=== PATIENT | female | born 1945 | race Caucasian/White ===

== ENCOUNTER → 2018-03-27 15:00 | Outpatient (CLI) | payer MEDICARE, OTHER, SELFPAY | PROVIDERS: Family Provider Internal Medicine; PCP Internal Medicine | DX: Z23 Encounter for immunization (principal) | CPT/HCPCS: 90471; 90662 ==

== ENCOUNTER → 2018-05-07 17:15 | Outpatient (CLI) | payer MEDICARE, OTHER, SELFPAY | PROVIDERS: Family Provider Internal Medicine; PCP Internal Medicine; Visit Provider Physician Assistant | DX: N39.0 Urinary tract infection, site not specified (principal) | CPT/HCPCS: 87086 ==

== ENCOUNTER → 2018-11-30 12:10 | Outpatient (CLI) | payer MEDICARE, OTHER, SELFPAY ==
--- NOTE | 2018-11-30 | DI.MG.S_ITS ---
BILATERAL DIGITAL SCREENING MAMMOGRAM 3D/2D WITH CAD: 11/30/2018 CLINICAL: Routine screening. Family history of breast cancer. Comparison is made to exams dated: 11/29/2017 mammogram, 11/25/2016 mammogram - [facility], and 11/12/2015 mammogram - [facility]. The tissue of both breasts is heterogeneously dense. This may lower the sensitivity of mammography. Current study was also evaluated with a Computer Aided Detection (CAD) system. No significant masses, calcifications, or other findings are seen in either breast. There has been no significant interval change. IMPRESSION: NEGATIVE There is no mammographic evidence of malignancy. A 1 year screening mammogram is recommended. This exam was interpreted at Station ID: [id number]. NOTE: For mammograms, a report in lay terms will be sent to the patient. Approximately 15% of breast malignancies will not be visualized mammographically. In the management of a palpable breast mass, a negative mammogram must not discourage biopsy of a clinically suspicious lesion. Electronically Signed By: Geovanna severino/varun:11/30/2018 13:45:31 copy to: Shannen Anders letter sent: Normal Exam ACR BI-RADS Category 1: Negative [id number]
== END ==
PROVIDERS: Family Provider Internal Medicine; PCP Internal Medicine; Visit Provider Internal Medicine
DX: Z12.31 Encounter for screening mammogram for malignant neoplasm of breast (principal); Z80.3 Family history of malignant neoplasm of breast
CPT/HCPCS: 77063; 77067

== ENCOUNTER → 2019-04-09 13:48 | Outpatient (CLI) | payer MEDICARE, OTHER, SELFPAY | PROVIDERS: PCP Internal Medicine | DX: Z23 Encounter for immunization (principal) | CPT/HCPCS: 90471; 90662 ==

== ENCOUNTER → 2019-05-26 16:16 | Outpatient (CLI) | payer MEDICARE, OTHER, SELFPAY | PROVIDERS: PCP Internal Medicine; Visit Provider Physician Assistant | DX: R30.0 Dysuria (principal) | CPT/HCPCS: 87086 ==

== ENCOUNTER 2019-09-27 09:45 | Outpatient (RCR) | payer MEDICARE, OTHER, SELFPAY ==
--- NOTE | 2019-09-06 15:46 | PT.OIE ---
Current Diagnoses Stress incontinence (female) (male) (09/06/19) Urge incontinence (09/06/19) Pelvic and perineal pain (09/06/19) Urgency of urination (09/06/19) Visit Care Team Role Provider Type Israel Lucero MD Primary Care Provider Non-Staff Specialty: Medical Address: [address] [place] [address], [id number] Email: Veronica Rebollar MD Attending Provider Non-Staff Referring Provider Specialty: Urology Address: [address] [place] [address], [address] Email: Physical Therapy Initial Evaluation PT-OP-A Visit Information Start: 09/06/19 07:56 Freq: Status: Active Protocol: Document 09/06/19 09:45 EG (Rec: 09/06/19 10:17 EG [id number]) Out-Patient Physical Therapy Visit Information Visit Information Visit Type Initial Evaluation Visit Start Time 09:48 Visit Stop Time 10:30 Total Visit Minutes 42 Visit Number 1 Number of FINANCIAL CONSULTANT Visits 0 Evaluation Information Evaluation Date 09/06/19 PT-OP-B Current Condition Start: 09/06/19 07:56 Freq: Status: Active Protocol: Document 09/06/19 09:45 EG (Rec: 09/06/19 10:16 EG [id number]) Current Condition History of Current Condition Onset Date 6 months prior, February 2020 Current Complaints Frequent urinary leakage History of Current Condition Patient reports that everything bladder related is going on. She says that she can anticipate going to bathroom some of the time but a lot of time she feels the urge and has to run to the bathroom without much notice. She first began getting these symptoms several years ago but in the last 6 months it has gotten progressively worse where she felt she needed to get some treatment. She reports not being able to hold the urge for a very long time . She also reports that she has noticed that water running as well as a cup of tea can trigger an urge. Patient reports that at times when she is feeling overwhelmed, about 3-4x/day, she will go to void and only have a tbsp of urine come out. She reports that it is not painful with urination but afterwards it feels like an exquisite thing that goes up you. She will wake up and go to the bathroom right away which she reports as being normal. She denies having an urge to go void in the middle of the night. She reports that she has had many UTI's in the past with the last one being 4-5 months ago. Traditionally, hardly drink any water but has started to drink more water because she heard this was good but this results in having to go more often as well as having leaks more often. Patient reports that she also leaks with cough or sneeze. Patient has been wearing pads, going through about 2 a day. 43 years ago had vaginal - hysterectomy 15 years ago - took everything out. Patient enjoys sewing while standing and sitting, working in yard, cooking, baking, painting,and gardening. 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 Denies any heaviness but she does have aching on lateral side of bilateral hips . Reports being able to evacuate fine. She reports that she has had an off and on history of constipation - go 2x/week. Prior Treatments and Tests Full Hysterectomy 1 Vaginal 43 years ago 10-12 years ago pelvic floor class Treatment Goals Patient/Caregiver Goals Relieve pain on sides of hips. Wants to learn how to maneuver through episodes and recognize how to handle the leaks. 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 Function- Recreation/Hobbies sew, bake, cook, garden, volunteer Current Functional Impairments (Reported) Functional Limitations- ADL's Have an urge to urinate 3-4x/ day with minimal voidance ( about 1 TBS) Functional Limitations- Recreation/ Urge while volunteering and Hobbies need to peraza to the bathroom Leakage when sewing or cooking at home Personal Factors Other Personal Factors That May Effect Depression Therapy/Recovery Fibromyalgia High blood pressure Decreased hydration Past hysterectomy PT-OP-C Subjective Start: 09/06/19 07:56 Freq: Status: Active Protocol: Document 09/06/19 09:45 EG (Rec: 09/08/19 18:20 EG [email or web address]) Patient Questionnaires Incontinence Questionnaire Incontinence Score Refer to paper chart Pelvic Pain and Urgency/Frequency Patient Symptom Scale Pelvic Pain Score 9 OP-PT Pain Assessment Pain Assessment Grid Paper Pain Assessment Grid Completed Yes: R hip, bilateral ankle, pelvic pain, R scapula PT-OP-I Pelvic Floor Start: 09/06/19 07:56 Freq: Status: Active Protocol: Document 09/06/19 09:45 AMB (Rec: 09/06/19 11:13 AMB [id number]) Pelvic Floor Assessment Urine Pelvic Floor Surgery Yes: total abdominal hysterectomy 10-15 years ago Urinary Symptoms Urge Sensation,Pain Leakage Size Medium Leakage Cause Cough,Sneeze,Urge Other Leakage Causes trigger: running water Leaks Per Day 3-4 Voiding Frequency every few hours to minutes Nocturia 0 Pads Used In 24 Hours 2 Urine Pad Type Maxi Pad Bowel Bowel Surgery No Bowel Symptoms Constipation Bowel Movement Frequency 2x/week Pelvic Clock Pelvic Clock Other no tenderness noted throughout assessment Prolapse Prolapse Comments did not check with bearing down, as pt had difficulty with movement, no cystocele seen at baseline. Perineal Descent Resting Absent Contraction Ability Voluntary Contraction Weak Voluntary Relaxation Weak Manual Muscle Testing Left 1 Manual Muscle Testing Right 1 Manual Muscle Testing Anterior 1 Manual Muscle Testing Posterior 2 Muscle Endurance (Seconds) 5 Number of Quick Contractions In 10 3 Seconds Comments Pelvic Floor Comments increased white discharge, but pt feels like this is from estradiol PT-OP-Q Treatments Start: 09/06/19 07:56 Freq: Status: Active Protocol: Document 09/06/19 09:45 EG (Rec: 09/08/19 18:23 EG [email or web address]) Self-Care/Home Management Treatment Education Patient Education Home Exercise Program Other Education Patient given education on pelvic floor therapy as well as education on how to appropriately handle urinary urge at home. Patient was given an informational sheet to take home. PT-OP-T Assessment and Plan Start: 09/06/19 07:56 Freq: Status: Active Protocol: Document 09/06/19 09:45 EG (Rec: 09/08/19 18:36 EG [email or web address]) Physical Therapy Assessment Rehab Potential Rehabilitation Potential Good Evaluation Complexity Number of Personal Factors/Comorbidities 3 or More Number of Body Systems Impaired 3 Clinical Presentation at Evaluation Stable Impairments Impairments Activity Tolerance, Coordination,Functional Activities,Functional Mobility ,Pain,Posture,Strength Goals Four Impairment Voidance Urge Short Term Goal (STG) Patient will be able to control urinary urge 50% of the time in 2 weeks. STG Duration 2 weeks [facility] Goal (LTG) Patient will be able to control urinary urge 100% of the time in 6 weeks. LTG Duration 6 weeks Three Impairment Urinary Leakage Short Term Goal (STG) Patient will have no more than 3 urinary leaks/week in 3 weeks. STG Duration 3 weeks [facility] Goal (LTG) Patient will not have any urinary leaks in 6 weeks. LTG Duration 6 weeks Two Impairment Coordination Short Term Goal (STG) Patient will be able to isolate and contract pelvic floor mm without use of buttocks or abdominal 65% of time when performing kegel exercises in 3 weeks. STG Duration 3 weeks Hydroelectric Plant Technician Goal (LTG) Patient willbe able to isolate and contract pelvic floor mm without use of buttocks or abdominals 100% of the time in 6 weeks. LTG Duration 6 weeks One Impairment Strength Short Term Goal (STG) Patient will increase Pelvic Floor mm. strength to 3+/5 in 4 weeks. STG Duration 4 weeks Hydroelectric Plant Technician Goal (LTG) Patient will increase pelvic floor mm strength to 4/5 in 6 weeks. LTG Duration 6 weeks Assessment Summary Assessment Patient is a pleasant 74 year old female who reports to physical therapy with cheif complaint of urinary incontinence due to weak pelvic floor musculature as well as decreased pelvic floor musculature coordination. Patient also experiences urge incontinence with triggers. Patient will benefit from skilled therapy to address weakness, incoordination, as well as uncontrolled urge. Patient will benefit from pelvic floor strength training , education on urge incontinence, diaphragmatic breathing, neuromuscular reeducation, as well as LE strengthening and coordination in order to allow patient to return to prior activities without urinary interruption. Physical Therapy Plan Frequency and Duration Frequency of Treatment 1x/Week Duration of Treatment 6 weeks Plan of Care Start Date 09/06/19 Plan of Care End Date 10/18/19 Therapeutic Interventions Therapeutic Interventions Coordination Training,Gait Training,Home Exercise Program ,Manual Therapy,Neuromuscular Re-education,Patient/Caregiver Education,Self-Care/Home Management,Soft Tissue Mobilization,Therapeutic Activities,Therapeutic Exercises Modalities Biofeedback,Electric Stimulation Next Visit Focus/Plan Next Note Type Treatment Note Next Visit Plan Assess how urge incontinence and control is. Begin biofeedback. IHarriet DPT, supervised all treatment performed by, and agreed with the plan of care, as performed by Nory Gilbert, CLAYTON.
--- NOTE | 2019-09-06 15:47 | PT.OPPOC ---
Physical, Occupational & Speech Therapy At [facility] Current Diagnoses Stress incontinence (female) (male) (09/06/19) Urge incontinence (09/06/19) Pelvic and perineal pain (09/06/19) Urgency of urination (09/06/19) Visit Care Team Role Provider Type Israel Lucero MD Primary Care Provider Non-Staff Specialty: Medical Address: [address] [place] [address], [address] Email: Veronica Rebollar MD Attending Provider Non-Staff Referring Provider Specialty: Urology Address: [address] [place] [address], [address] Email: Plan Of Care PT-OP-T Assessment and Plan Start: 09/06/19 07:56 Freq: Status: Active Protocol: Document 09/06/19 09:45 EG (Rec: 09/08/19 18:36 EG [email or web address]) Physical Therapy Assessment Rehab Potential Rehabilitation Potential Good Evaluation Complexity Number of Personal Factors/Comorbidities 3 or More Number of Body Systems Impaired 3 Clinical Presentation at Evaluation Stable Impairments Impairments Activity Tolerance, Coordination,Functional Activities,Functional Mobility ,Pain,Posture,Strength Goals Four Impairment Voidance Urge Short Term Goal (STG) Patient will be able to control urinary urge 50% of the time in 2 weeks. STG Duration 2 weeks Freight Adjuster Goal (LTG) Patient will be able to control urinary urge 100% of the time in 6 weeks. LTG Duration 6 weeks Three Impairment Urinary Leakage Short Term Goal (STG) Patient will have no more than 3 urinary leaks/week in 3 weeks. STG Duration 3 weeks Half-Way Goal (LTG) Patient will not have any urinary leaks in 6 weeks. LTG Duration 6 weeks Two Impairment Coordination Short Term Goal (STG) Patient will be able to isolate and contract pelvic floor mm without use of buttocks or abdominal 65% of time when performing kegel exercises in 3 weeks. STG Duration 3 weeks Freight Adjuster Goal (LTG) Patient willbe able to isolate and contract pelvic floor mm without use of buttocks or abdominals 100% of the time in 6 weeks. LTG Duration 6 weeks One Impairment Strength Short Term Goal (STG) Patient will increase Pelvic Floor mm. strength to 3+/5 in 4 weeks. STG Duration 4 weeks Half-Way Goal (LTG) Patient will increase pelvic floor mm strength to 4/5 in 6 weeks. LTG Duration 6 weeks Assessment Summary Assessment Patient is a pleasant 74 year old female who reports to physical therapy with cheif complaint of urinary incontinence due to weak pelvic floor musculature as well as decreased pelvic floor musculature coordination. Patient also experiences urge incontinence with triggers. Patient will benefit from skilled therapy to address weakness, incoordination, as well as uncontrolled urge. Patient will benefit from pelvic floor strength training , education on urge incontinence, diaphragmatic breathing, neuromuscular reeducation, as well as LE strengthening and coordination in order to allow patient to return to prior activities without urinary interruption. Physical Therapy Plan Frequency and Duration Frequency of Treatment 1x/Week Duration of Treatment 6 weeks Plan of Care Start Date 09/06/19 Plan of Care End Date 10/18/19 Therapeutic Interventions Therapeutic Interventions Coordination Training,Gait Training,Home Exercise Program ,Manual Therapy,Neuromuscular Re-education,Patient/Caregiver Education,Self-Care/Home Management,Soft Tissue Mobilization,Therapeutic Activities,Therapeutic Exercises Modalities Biofeedback,Electric Stimulation Next Visit Focus/Plan Next Note Type Treatment Note Next Visit Plan Assess how urge incontinence and control is. Begin biofeedback. Plan of Care Dates Plan of Care Start Date 09/06/19 Plan of Care End Date 10/18/19 Harriet Armas DPT, supervised all treatment performed by, and agreed with the plan of care, as performed by Nory Gilbert, CLAYTON. Electronically Signed by: Harriet Murphy, PT 09/10/19 [id number] Please Sign and Return: I have reviewed this Plan of Care and certify that the skilled therapy services above are required to meet the patient?s needs. Physician Signature Date Printed Name and Credentials Clinical Instructor Signature Printed Name and Credentials
--- NOTE | 2019-09-13 16:06 | PT.OTN ---
Current Diagnoses Stress incontinence (female) (male) (09/13/19) Urge incontinence (09/13/19) Pelvic and perineal pain (09/13/19) Urgency of urination (09/13/19) Physical Therapy Treatment Note PT-OP-A Visit Information Start: 09/06/19 07:56 Freq: Status: Active Protocol: Document 09/13/19 09:50 EG (Rec: 09/13/19 11:18 EG [id number]) Out-Patient Physical Therapy Visit Information Visit Information Visit Type Treatment Note Visit Start Time 09:50 Visit Stop Time 10:30 Total Visit Minutes 40 Visit Number 2 Number of DIGITAL PHOTO PRINTER Visits 0 PT-OP-B Current Condition Start: 09/06/19 07:56 Freq: Status: Active Protocol: Document 09/06/19 09:45 EG (Rec: 09/06/19 10:16 EG [id number]) Current Condition History of Current Condition Onset Date 6 months prior, February 2020 Current Complaints Frequent urinary leakage History of Current Condition Patient reports that everything bladder related is going on. She says that she can anticipate going to bathroom some of the time but a lot of time she feels the urge and has to run to the bathroom without much notice. She first began getting these symptoms several years ago but in the last 6 months it has gotten progressively worse where she felt she needed to get some treatment. She reports not being able to hold the urge for a very long time . She also reports that she has noticed that water running as well as a cup of tea can trigger an urge. Patient reports that at times when she is feeling overwhelmed, about 3-4x/day, she will go to void and only have a tbsp of urine come out. She reports that it is not painful with urination but afterwards it feels like an exquisite thing that goes up you. She will wake up and go to the bathroom right away which she reports as being normal. She denies having an urge to go void in the middle of the night. She reports that she has had many UTI's in the past with the last one being 4-5 months ago. Traditionally, hardly drink any water but has started to drink more water because she heard this was good but this results in having to go more often as well as having leaks more often. Patient reports that she also leaks with cough or sneeze. Patient has been wearing pads, going through about 2 a day. 43 years ago had vaginal - hysterectomy 15 years ago - took everything out. Patient enjoys sewing while standing and sitting, working in yard, cooking, baking, painting,and gardening. 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 Denies any heaviness but she does have aching on lateral side of bilateral hips . Reports being able to evacuate fine. She reports that she has had an off and on history of constipation - go 2x/week. Prior Treatments and Tests Full Hysterectomy 1 Vaginal 43 years ago 10-12 years ago pelvic floor class Treatment Goals Patient/Caregiver Goals Relieve pain on sides of hips. Wants to learn how to maneuver through episodes and recognize how to handle the leaks. 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 Function- Recreation/Hobbies sew, bake, cook, garden, volunteer Current Functional Impairments (Reported) Functional Limitations- ADL's Have an urge to urinate 3-4x/ day with minimal voidance ( about 1 TBS) Functional Limitations- Recreation/ Urge while volunteering and Hobbies need to peraza to the bathroom Leakage when sewing or cooking at home Personal Factors Other Personal Factors That May Effect Depression Therapy/Recovery Fibromyalgia High blood pressure Decreased hydration Past hysterectomy PT-OP-C Subjective Start: 09/06/19 07:56 Freq: Status: Active Protocol: Document 09/13/19 09:50 EG (Rec: 09/13/19 11:18 EG [id number]) OP-PT Subjective Patient Comments Patient Comments Patient reports that things are about the same. She feels that when she is doing the quick flicks, she will let everything go. She did have some leaks this past week and had to run to the bathroom a few times in order to make it there. She still feels as if she doesn't have to void much urine when she does go to the bathroom frequently and at times feels as if she has an urge all day long. She does report having less of an urge at night time because she is lying down and she doesn't feel the urge to urinate as much when lying down. Patient Reported Progress Same PT-OP-I Pelvic Floor Start: 09/06/19 07:56 Freq: Status: Active Protocol: Document 09/06/19 09:45 AMB (Rec: 09/06/19 11:13 AMB [id number]) Pelvic Floor Assessment Urine Pelvic Floor Surgery Yes: total abdominal hysterectomy 10-15 years ago Urinary Symptoms Urge Sensation,Pain Leakage Size Medium Leakage Cause Cough,Sneeze,Urge Other Leakage Causes trigger: running water Leaks Per Day 3-4 Voiding Frequency every few hours to minutes Nocturia 0 Pads Used In 24 Hours 2 Urine Pad Type Maxi Pad Bowel Bowel Surgery No Bowel Symptoms Constipation Bowel Movement Frequency 2x/week Pelvic Clock Pelvic Clock Other no tenderness noted throughout assessment Prolapse Prolapse Comments did not check with bearing down, as pt had difficulty with movement, no cystocele seen at baseline. Perineal Descent Resting Absent Contraction Ability Voluntary Contraction Weak Voluntary Relaxation Weak Manual Muscle Testing Left 1 Manual Muscle Testing Right 1 Manual Muscle Testing Anterior 1 Manual Muscle Testing Posterior 2 Muscle Endurance (Seconds) 5 Number of Quick Contractions In 10 3 Seconds Comments Pelvic Floor Comments increased white discharge, but pt feels like this is from estradiol PT-OP-Q Treatments Start: 09/06/19 07:56 Freq: Status: Active Protocol: Document 09/13/19 09:50 EG (Rec: 09/13/19 15:35 EG [email or web address]) Neuro Re-Education Treatment Other Activities Biofeedback Details Biofeedback Reps/Duration 23 min Comments Baseline: 1.8 5 sec hold, 10 sec relax: max 8.3 10 sec hold, 10 sec relax: max 5.1 Quickflicks: max 4.4 Self-Care/Home Management Treatment Education Patient Education Home Exercise Program Other Education Urgency control education Fluid intake education Talked about going on urination schedule possibly every hour to help normalize voidance and decrease all day urgency PT-OP-T Assessment and Plan Start: 09/06/19 07:56 Freq: Status: Active Protocol: Document 09/13/19 09:50 EG (Rec: 09/13/19 15:35 EG [email or web address]) Physical Therapy Assessment Assessment Summary Assessment Patient tolerated treatment fair today. She was able to contract pelvic floor but did still use abdomen and gluteal muscles with contraction. With concentration, she is able to isolate pelvic floor but maximal contraction is fairly weak. She will continue to benefit from urge reduction techniques to help with daily urges and frequency of urination. Patient should work on supine isolation of pelvic floor contraction and progress as tolerated to continue with strengtheng and control of pelvic floor. Physical Therapy Plan Frequency and Duration Frequency of Treatment 1x/Week Duration of Treatment 6 weeks Plan of Care Start Date 09/06/19 Plan of Care End Date 10/18/19 Next Visit Focus/Plan Next Note Type Treatment Note Next Visit Plan Assess how pelvic floor contraction supine is going. Continue with strengthening. Ask about urination schedule. IHarriet, DPT, supervised all treatment performed by, and agreed with the plan of care, as performed by Nory Gilbert, SPT.
--- NOTE | 2019-09-17 15:00 | PT.OTN ---
Current Diagnoses Stress incontinence (female) (male) (09/17/19) Urge incontinence (09/17/19) Pelvic and perineal pain (09/17/19) Urgency of urination (09/17/19) Physical Therapy Treatment Note PT-OP-A Visit Information Start: 09/06/19 07:56 Freq: Status: Active Protocol: Document 09/17/19 08:17 EG (Rec: 09/17/19 11:18 EG [id number]) Out-Patient Physical Therapy Visit Information Visit Information Visit Type Treatment Note Visit Start Time 08:17 Visit Stop Time 09:00 Total Visit Minutes 43 Visit Number 3 Number of PORTRAIT ARTIST Visits 0 PT-OP-B Current Condition Start: 09/06/19 07:56 Freq: Status: Active Protocol: Document 09/06/19 09:45 EG (Rec: 09/06/19 10:16 EG [id number]) Current Condition History of Current Condition Onset Date 6 months prior, February 2020 Current Complaints Frequent urinary leakage History of Current Condition Patient reports that everything bladder related is going on. She says that she can anticipate going to bathroom some of the time but a lot of time she feels the urge and has to run to the bathroom without much notice. She first began getting these symptoms several years ago but in the last 6 months it has gotten progressively worse where she felt she needed to get some treatment. She reports not being able to hold the urge for a very long time . She also reports that she has noticed that water running as well as a cup of tea can trigger an urge. Patient reports that at times when she is feeling overwhelmed, about 3-4x/day, she will go to void and only have a tbsp of urine come out. She reports that it is not painful with urination but afterwards it feels like an exquisite thing that goes up you. She will wake up and go to the bathroom right away which she reports as being normal. She denies having an urge to go void in the middle of the night. She reports that she has had many UTI's in the past with the last one being 4-5 months ago. Traditionally, hardly drink any water but has started to drink more water because she heard this was good but this results in having to go more often as well as having leaks more often. Patient reports that she also leaks with cough or sneeze. Patient has been wearing pads, going through about 2 a day. 43 years ago had vaginal - hysterectomy 15 years ago - took everything out. Patient enjoys sewing while standing and sitting, working in yard, cooking, baking, painting,and gardening. 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 Denies any heaviness but she does have aching on lateral side of bilateral hips . Reports being able to evacuate fine. She reports that she has had an off and on history of constipation - go 2x/week. Prior Treatments and Tests Full Hysterectomy 1 Vaginal 43 years ago 10-12 years ago pelvic floor class Treatment Goals Patient/Caregiver Goals Relieve pain on sides of hips. Wants to learn how to maneuver through episodes and recognize how to handle the leaks. 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 Function- Recreation/Hobbies sew, bake, cook, garden, volunteer Current Functional Impairments (Reported) Functional Limitations- ADL's Have an urge to urinate 3-4x/ day with minimal voidance ( about 1 TBS) Functional Limitations- Recreation/ Urge while volunteering and Hobbies need to peraza to the bathroom Leakage when sewing or cooking at home Personal Factors Other Personal Factors That May Effect Depression Therapy/Recovery Fibromyalgia High blood pressure Decreased hydration Past hysterectomy PT-OP-C Subjective Start: 09/06/19 07:56 Freq: Status: Active Protocol: Document 09/17/19 08:17 EG (Rec: 09/17/19 11:18 EG [id number]) OP-PT Subjective Patient Comments Patient Comments Patient reports that some days are not so bad, some days are not so good. She has been trying to drink the full day but it is hard to remember sometimes. She also reports that it is difficult to do kegels when having an urge and she feels that she can't control the urge enough to breathe and do her exercises. Overall the week has been variable, but she did report quite a few leaks yesterday. Patient Reported Progress Same PT-OP-I Pelvic Floor Start: 09/06/19 07:56 Freq: Status: Active Protocol: Document 09/06/19 09:45 AMB (Rec: 09/06/19 11:13 AMB [id number]) Pelvic Floor Assessment Urine Pelvic Floor Surgery Yes: total abdominal hysterectomy 10-15 years ago Urinary Symptoms Urge Sensation,Pain Leakage Size Medium Leakage Cause Cough,Sneeze,Urge Other Leakage Causes trigger: running water Leaks Per Day 3-4 Voiding Frequency every few hours to minutes Nocturia 0 Pads Used In 24 Hours 2 Urine Pad Type Maxi Pad Bowel Bowel Surgery No Bowel Symptoms Constipation Bowel Movement Frequency 2x/week Pelvic Clock Pelvic Clock Other no tenderness noted throughout assessment Prolapse Prolapse Comments did not check with bearing down, as pt had difficulty with movement, no cystocele seen at baseline. Perineal Descent Resting Absent Contraction Ability Voluntary Contraction Weak Voluntary Relaxation Weak Manual Muscle Testing Left 1 Manual Muscle Testing Right 1 Manual Muscle Testing Anterior 1 Manual Muscle Testing Posterior 2 Muscle Endurance (Seconds) 5 Number of Quick Contractions In 10 3 Seconds Comments Pelvic Floor Comments increased white discharge, but pt feels like this is from estradiol PT-OP-Q Treatments Start: 09/06/19 07:56 Freq: Status: Active Protocol: Document 09/17/19 08:17 EG (Rec: 09/17/19 11:18 EG [id number]) Therapeutic Exercises Supine Exercises Quick Flicks while Supine Supine Exercise Name Quick Flicks while supine Reps/Minutes 2x10 Comments cue to decrease muscle compensation with TA and glutes PF contraction with alternate breaths Supine Exercise Name PF contraction while breathing Reps/Minutes 10x Comments hold PF contraction while breathing. Breathing with PF contraction Supine Exercise Name Coordinated breathing with PF contraction Reps/Minutes 10x Comments Patient in hooklying, contract PF with exhalation - tactile cue on glutes Neuro Re-Education Treatment Other Activities NMES Details NMES Reps/Duration Intensity of 10 Comments 5 sec hold, 10 second relax Biofeedback Details Biofeedback Reps/Duration 15 Comments 6.3 avg, 12.1 - 5 sec hold 6.5 avg, 13.1 max - quick flicks PT-OP-T Assessment and Plan Start: 09/06/19 07:56 Freq: Status: Active Protocol: Document 09/17/19 08:17 EG (Rec: 09/17/19 11:33 EG [id number]) Physical Therapy Assessment Assessment Summary Assessment Patient still struggles with isolating pelvic floor musculature but does better when giving self tactile cue on gluteal muscles to prevent co-contraction when doing pelvic floor contraction. Patient did well with breath work and PF contraction today. Will continue to benefit from increasing NM connection to PF in order to use these muscles when feeling increased urge throughout the day. Physical Therapy Plan Frequency and Duration Frequency of Treatment 1x/Week Duration of Treatment 6 weeks Plan of Care Start Date 09/06/19 Plan of Care End Date 10/18/19 Next Visit Focus/Plan Next Note Type Treatment Note Next Visit Plan Assess HEP. Ask about fluid intake. Continue to work on PF strengthening and urge reduction training. Advance strengthening as tolerated. IHarriet, KIRA, supervised all treatment performed by, and agreed with the plan of care, as performed by Nory Gilbert, CLAYTON.
--- NOTE | 2019-09-27 15:53 | PT.OTN ---
Current Diagnoses Stress incontinence (female) (male) (09/27/19) Urge incontinence (09/27/19) Pelvic and perineal pain (09/27/19) Physical Therapy Treatment Note PT-OP-A Visit Information Start: 09/06/19 07:56 Freq: Status: Active Protocol: Document 09/27/19 09:45 EG (Rec: 09/27/19 14:24 EG [id number]) Out-Patient Physical Therapy Visit Information Visit Information Visit Type Treatment Note Visit Start Time 09:45 Visit Stop Time 10:30 Total Visit Minutes 45 Visit Number 4 Number of STATE PILOT Visits 0 PT-OP-B Current Condition Start: 09/06/19 07:56 Freq: Status: Active Protocol: Document 09/06/19 09:45 EG (Rec: 09/06/19 10:16 EG [id number]) Current Condition History of Current Condition Onset Date 6 months prior, February 2020 Current Complaints Frequent urinary leakage History of Current Condition Patient reports that everything bladder related is going on. She says that she can anticipate going to bathroom some of the time but a lot of time she feels the urge and has to run to the bathroom without much notice. She first began getting these symptoms several years ago but in the last 6 months it has gotten progressively worse where she felt she needed to get some treatment. She reports not being able to hold the urge for a very long time . She also reports that she has noticed that water running as well as a cup of tea can trigger an urge. Patient reports that at times when she is feeling overwhelmed, about 3-4x/day, she will go to void and only have a tbsp of urine come out. She reports that it is not painful with urination but afterwards it feels like an exquisite thing that goes up you. She will wake up and go to the bathroom right away which she reports as being normal. She denies having an urge to go void in the middle of the night. She reports that she has had many UTI's in the past with the last one being 4-5 months ago. Traditionally, hardly drink any water but has started to drink more water because she heard this was good but this results in having to go more often as well as having leaks more often. Patient reports that she also leaks with cough or sneeze. Patient has been wearing pads, going through about 2 a day. 43 years ago had vaginal - hysterectomy 15 years ago - took everything out. Patient enjoys sewing while standing and sitting, working in yard, cooking, baking, painting,and gardening. 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 Denies any heaviness but she does have aching on lateral side of bilateral hips . Reports being able to evacuate fine. She reports that she has had an off and on history of constipation - go 2x/week. Prior Treatments and Tests Full Hysterectomy 1 Vaginal 43 years ago 10-12 years ago pelvic floor class Treatment Goals Patient/Caregiver Goals Relieve pain on sides of hips. Wants to learn how to maneuver through episodes and recognize how to handle the leaks. Prior Functional Status Baseline Function- ADL's Independent Baseline Function- Mobility Independent Baseline Function- Work/School Retired from the [employer] system Baseline Function- Recreation/Hobbies sew, bake, cook, garden, volunteer Current Functional Impairments (Reported) Functional Limitations- ADL's Have an urge to urinate 3-4x/ day with minimal voidance ( about 1 TBS) Functional Limitations- Recreation/ Urge while volunteering and Hobbies need to peraza to the bathroom Leakage when sewing or cooking at home Personal Factors Other Personal Factors That May Effect Depression Therapy/Recovery Fibromyalgia High blood pressure Decreased hydration Past hysterectomy PT-OP-C Subjective Start: 09/06/19 07:56 Freq: Status: Active Protocol: Document 09/27/19 09:45 EG (Rec: 09/27/19 10:33 EG [id number]) OP-PT Subjective Patient Comments Patient Comments Patient reports that she is still getting the urge and it is still difficult to get a handle on when she actually has to go and when she doesn't . She is still having that sensation when she goes to the bathroom but doesn't have a large volume to void. The urge is so overpowering, and doing the quick flicks is not timely. Trying not to drink that much water. Hard to not go to the bathroom when out so she always uses the bathroom just in case. Patient Reported Progress Same PT-OP-I Pelvic Floor Start: 09/06/19 07:56 Freq: Status: Active Protocol: Document 09/06/19 09:45 AMB (Rec: 09/06/19 11:13 AMB [id number]) Pelvic Floor Assessment Urine Pelvic Floor Surgery Yes: total abdominal hysterectomy 10-15 years ago Urinary Symptoms Urge Sensation,Pain Leakage Size Medium Leakage Cause Cough,Sneeze,Urge Other Leakage Causes trigger: running water Leaks Per Day 3-4 Voiding Frequency every few hours to minutes Nocturia 0 Pads Used In 24 Hours 2 Urine Pad Type Maxi Pad Bowel Bowel Surgery No Bowel Symptoms Constipation Bowel Movement Frequency 2x/week Pelvic Clock Pelvic Clock Other no tenderness noted throughout assessment Prolapse Prolapse Comments did not check with bearing down, as pt had difficulty with movement, no cystocele seen at baseline. Perineal Descent Resting Absent Contraction Ability Voluntary Contraction Weak Voluntary Relaxation Weak Manual Muscle Testing Left 1 Manual Muscle Testing Right 1 Manual Muscle Testing Anterior 1 Manual Muscle Testing Posterior 2 Muscle Endurance (Seconds) 5 Number of Quick Contractions In 10 3 Seconds Comments Pelvic Floor Comments increased white discharge, but pt feels like this is from estradiol PT-OP-Q Treatments Start: 09/06/19 07:56 Freq: Status: Active Protocol: Document 09/27/19 09:45 EG (Rec: 09/27/19 10:33 EG [id number]) Neuro Re-Education Treatment Other Activities Biofeedback Details Biofeedback Reps/Duration 20 Comments baseline:2.0-2.5 5 sec hold: 12.6 max, 6.9 avg quick flicks: max:14.3 10 sec hold: 13.1 max Self-Care/Home Management Treatment Education Patient Education Home Exercise Program Other Education Fluids, Schedule for fluid voiding, Quick Flicks, Urgency Management PT-OP-T Assessment and Plan Start: 09/06/19 07:56 Freq: Status: Active Protocol: Document 09/27/19 09:45 EG (Rec: 09/27/19 14:29 EG [id number]) Physical Therapy Assessment Assessment Summary Assessment Patient tolerated treatment well today. She was able to perform PF contractions without an increase in abdominal or gluteal engagement and felt like she understands what that contraction is supposed to feel like. She was told to go on a voiding schedule as well as fluid intake schedule at least 3x/week to help regulate the system and help reduce the urge to go to the bathroom without needing to void. Physical Therapy Plan Frequency and Duration Frequency of Treatment 1x/Week Duration of Treatment 6 weeks Plan of Care Start Date 09/06/19 Plan of Care End Date 10/18/19 Next Visit Focus/Plan Next Note Type Treatment Note Next Visit Plan Assess HEP. Ask about fluid intake and bladder schedule performance. Continue to work on PF strengthening and urge reduction training. Advance strengthening as tolerated. Harriet Armas, DPT, supervised all treatment performed by, and agreed with the plan of care, as performed by Nory Gilbert, CLAYTON.
--- NOTE | 2019-12-24 16:25 | PT.OPDS ---
Current Diagnoses Stress incontinence (female) (male) (09/27/19) Urge incontinence (09/27/19) Pelvic and perineal pain (09/27/19) Visit Care Team Role Provider Type Israel Lucero MD Primary Care Provider Non-Staff Specialty: Medical Address: [address] [place] [address], [id number] Email: Veronica Rebollar MD Attending Provider Non-Staff Referring Provider Specialty: Urology Address: [address] [place] [address], [id number] Email: Visit Number Visit Number 4 Discharge Summary PT-OP-B Current Condition Start: 09/06/19 07:56 Freq: Status: Active Protocol: Document 09/06/19 09:45 EG (Rec: 09/06/19 10:16 EG [id number]) Current Condition History of Current Condition Onset Date 6 months prior, February 2020 Current Complaints Frequent urinary leakage History of Current Condition Patient reports that everything bladder related is going on. She says that she can anticipate going to bathroom some of the time but a lot of time she feels the urge and has to run to the bathroom without much notice. She first began getting these symptoms several years ago but in the last 6 months it has gotten progressively worse where she felt she needed to get some treatment. She reports not being able to hold the urge for a very long time . She also reports that she has noticed that water running as well as a cup of tea can trigger an urge. Patient reports that at times when she is feeling overwhelmed, about 3-4x/day, she will go to void and only have a tbsp of urine come out. She reports that it is not painful with urination but afterwards it feels like an exquisite thing that goes up you. She will wake up and go to the bathroom right away which she reports as being normal. She denies having an urge to go void in the middle of the night. She reports that she has had many UTI's in the past with the last one being 4-5 months ago. Traditionally, hardly drink any water but has started to drink more water because she heard this was good but this results in having to go more often as well as having leaks more often. Patient reports that she also leaks with cough or sneeze. Patient has been wearing pads, going through about 2 a day. 43 years ago had vaginal - hysterectomy 15 years ago - took everything out. Patient enjoys sewing while standing and sitting, working in yard, cooking, baking, painting,and gardening. 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 Denies any heaviness but she does have aching on lateral side of bilateral hips . Reports being able to evacuate fine. She reports that she has had an off and on history of constipation - go 2x/week. Prior Treatments and Tests Full Hysterectomy 1 Vaginal 43 years ago 10-12 years ago pelvic floor class Treatment Goals Patient/Caregiver Goals Relieve pain on sides of hips. Wants to learn how to maneuver through episodes and recognize how to handle the leaks. 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 Function- Recreation/Hobbies sew, bake, cook, garden, volunteer Current Functional Impairments (Reported) Functional Limitations- ADL's Have an urge to urinate 3-4x/ day with minimal voidance ( about 1 TBS) Functional Limitations- Recreation/ Urge while volunteering and Hobbies need to peraza to the bathroom Leakage when sewing or cooking at home Personal Factors Other Personal Factors That May Effect Depression Therapy/Recovery Fibromyalgia High blood pressure Decreased hydration Past hysterectomy PT-OP-C Subjective Start: 09/06/19 07:56 Freq: Status: Active Protocol: Document 09/27/19 09:45 EG (Rec: 09/27/19 10:33 EG [id number]) OP-PT Subjective Patient Comments Patient Comments Patient reports that she is still getting the urge and it is still difficult to get a handle on when she actually has to go and when she doesn't . She is still having that sensation when she goes to the bathroom but doesn't have a large volume to void. The urge is so overpowering, and doing the quick flicks is not timely. Trying not to drink that much water. Hard to not go to the bathroom when out so she always uses the bathroom just in case. Patient Reported Progress Same PT-OP-I Pelvic Floor Start: 09/06/19 07:56 Freq: Status: Active Protocol: Document 09/06/19 09:45 AMB (Rec: 09/06/19 11:13 AMB [id number]) Pelvic Floor Assessment Urine Pelvic Floor Surgery Yes: total abdominal hysterectomy 10-15 years ago Urinary Symptoms Urge Sensation,Pain Leakage Size Medium Leakage Cause Cough,Sneeze,Urge Other Leakage Causes trigger: running water Leaks Per Day 3-4 Voiding Frequency every few hours to minutes Nocturia 0 Pads Used In 24 Hours 2 Urine Pad Type Maxi Pad Bowel Bowel Surgery No Bowel Symptoms Constipation Bowel Movement Frequency 2x/week Pelvic Clock Pelvic Clock Other no tenderness noted throughout assessment Prolapse Prolapse Comments did not check with bearing down, as pt had difficulty with movement, no cystocele seen at baseline. Perineal Descent Resting Absent Contraction Ability Voluntary Contraction Weak Voluntary Relaxation Weak Manual Muscle Testing Left 1 Manual Muscle Testing Right 1 Manual Muscle Testing Anterior 1 Manual Muscle Testing Posterior 2 Muscle Endurance (Seconds) 5 Number of Quick Contractions In 10 3 Seconds Comments Pelvic Floor Comments increased white discharge, but pt feels like this is from estradiol PT-OP-T Assessment and Plan Start: 09/06/19 07:56 Freq: Status: Active Protocol: Document 12/24/19 16:24 MB (Rec: 12/24/19 16:24 MB [id number]) Physical Therapy Plan Discharge Physical Therapy Discharge Comments Pt has not been attending PT. Will d/c PT.
== END 2019-12-25 08:08 ==
LOC: PHYS 09:45
PROVIDERS: PCP Internal Medicine; Referring Provider Urology; Visit Provider Urology
DX: R10.2 Pelvic and perineal pain (principal); N39.41 Urge incontinence; N39.3 Stress incontinence (female) (male)
CPT/HCPCS: 97110; 97112; 97161; 97535

== ENCOUNTER → 2020-01-02 14:02 | Outpatient (CLI) | payer MEDICARE, OTHER, SELFPAY ==
--- NOTE | 2020-01-02 | DI.MG.S_ITS ---
BILATERAL DIGITAL SCREENING MAMMOGRAM 3D/2D WITH CAD: 01/02/2020 CLINICAL: Routine screening. Family history of breast cancer. Comparison is made to exams dated: 11/30/2018 mammogram, 11/29/2017 mammogram, and 11/25/2016 mammogram - [facility]. The tissue of both breasts is heterogeneously dense. This may lower the sensitivity of mammography. Current study was also evaluated with a Computer Aided Detection (CAD) system. No significant masses, calcifications, or other findings are seen in either breast. There has been no significant interval change. IMPRESSION: NEGATIVE There is no mammographic evidence of malignancy. A 1 year screening mammogram is recommended. This exam was interpreted at Station ID: [id number]. NOTE: For mammograms, a report in lay terms will be sent to the patient. Approximately 15% of breast malignancies will not be visualized mammographically. In the management of a palpable breast mass, a negative mammogram must not discourage biopsy of a clinically suspicious lesion. Electronically Signed By: Dami ojeda/varun:01/02/2020 16:44:52 copy to: Shannen Anders letter sent: Normal Exam ACR BI-RADS Category 1: Negative [id number]
== END ==
PROVIDERS: PCP Internal Medicine; Referring Provider Internal Medicine; Visit Provider Internal Medicine
DX: Z12.31 Encounter for screening mammogram for malignant neoplasm of breast (principal); Z80.3 Family history of malignant neoplasm of breast
CPT/HCPCS: 77063; 77067

== ENCOUNTER → 2020-01-31 17:30 | Outpatient (CLI) | payer MEDICARE, OTHER, SELFPAY ==
--- NOTE | 2020-01-31 | DI.MRI.S_ITS ---
PROCEDURE: MR LUMBAR SPINE WO CON INDICATIONS: Low back and bilateral hip pain. Right leg pain TECHNIQUE: Noncontrast sagittal T1 spin echo and T2 fast echo, sagittal STIR, axial T1 and T2 fast spin echo through the lumbar spine. In cases with scoliosis, additional coronal T2 fast spin echo may be performed. COMPARISON: None. FINDINGS: Image quality: Excellent. Alignment and Curvature: There is mild L4-L5 anterolisthesis secondary to facet hypertrophy. There is approximately 14? of convex left lumbar spine scoliosis. Bone Marrow: Marrow is of normal overall signal. No acute vertebral body compression fractures. Spinal Cord: Conus medullaris terminates at the L1 level. Visualized cord demonstrates normal signal and size. Paraspinous Soft Tissues: No paravertebral masses. L1-L2: Loss of disc signal. Minimal, diffuse disc bulge. No central stenosis. No neural foraminal narrowing. No neural compression. L2-L3: Loss of disc signal. Mild, diffuse disc bulge. Mild bilateral facet hypertrophy. No central stenosis. No neural foraminal narrowing. No neural compression. L3-L4: Loss of disc signal and slight loss of disc height. Mild, diffuse disc bulge. Moderate bilateral facet hypertrophy. Mild to moderate narrowing of the central canal. Mild bilateral neural foraminal narrowing. No neural compression. L4-L5: Loss of disc signal and slight loss of disc height. Minimal, diffuse disc bulge. Moderate to severe bilateral facet hypertrophy. Mild to moderate narrowing of the central canal. Mild bilateral neural foraminal narrowing. No neural compression. L5-S1: Loss of disc signal. Mild, diffuse disc bulge. Mild right and moderate left facet hypertrophy. No central stenosis. Mild bilateral neural foraminal narrowing. No neural compression. IMPRESSION: 1. Grade 1 L4-L5 degenerative spondylolisthesis. Convex left scoliosis. 2. Multilevel degenerative disc disease. 3. Multilevel facet arthropathy. 4. Mild to moderate L3-L4 and L4-L5 central canal narrowing. 5. Mild bilateral L3-L4 , L4-L5 and L5-S1 neural foraminal narrowing. 6. No neural compression. Dictated by: Anali Richardson MD, PhD on 02/03/2020 at 10:46 Approved by: Anali Richardson MD, PhD on 02/03/2020 at 10:50
== END ==
PROVIDERS: PCP Internal Medicine; Referring Provider Physical Medicine & Rehabilitation; Visit Provider Physical Medicine & Rehabilitation
DX: M51.16 Intervertebral disc disorders with radiculopathy, lumbar region (principal); M51.17 Intervertebral disc disorders with radiculopathy, lumbosacral region; M47.26 Other spondylosis with radiculopathy, lumbar region; M47.27 Other spondylosis with radiculopathy, lumbosacral region; M48.061 Spinal stenosis, lumbar region without neurogenic claudication; M48.07 Spinal stenosis, lumbosacral region; M54.5 Low back pain; M25.552 Pain in left hip; M25.551 Pain in right hip; M79.604 Pain in right leg; M43.16 Spondylolisthesis, lumbar region; M41.86 Other forms of scoliosis, lumbar region
CPT/HCPCS: 72148

== ENCOUNTER 2020-02-24 14:30 | Outpatient (RCR) | payer MEDICARE, OTHER, SELFPAY ==
--- NOTE | 2020-01-28 18:02 | PT.OIE ---
Current Diagnoses Other forms of scoliosis, lumbosacral region (01/28/20) Trochanteric bursitis, right hip (01/28/20) Difficulty in walking, not elsewhere classified (01/28/20) Abnormal posture (01/28/20) Weakness (01/28/20) Visit Care Team Role Provider Type Specialty: Address: Phone: Fax: Email: Israel Lucero MD Primary Care Provider Non-Staff Specialty: Medical Address: [address] [place] [address], [id number] Email: Attending Provider Referring Provider Specialty: Address: Phone: Fax: Email: Physical Therapy Initial Evaluation PT-OP-A Visit Information Start: 01/28/20 15:22 Freq: Status: Active Protocol: Document 01/28/20 15:23 [facility] (Rec: 01/28/20 16:03 [facility] [id number]) Out-Patient Physical Therapy Visit Information Visit Information Visit Type Initial Evaluation Visit Note 07/26 Visit Start Time 15:21 Visit Stop Time 16:01 Total Visit Minutes 40 Visit Number 1 Number of RAILROAD OPERATOR Visits 0 PT-OP-B Current Condition Start: 01/28/20 15:22 Freq: Status: Active Protocol: Document 01/28/20 15:23 [facility] (Rec: 01/28/20 16:03 [facility] [id number]) Current Condition History of Current Condition Onset Date 6-8 months Current Complaints LBP, R hip & leg History of Current Condition Pt had pain that started on L side hipthen started to get better but then went over to R side. Pt had a fall about a year ago when going up the stairs and caught the toe of the shoe ended up falling against the stairs. Does not remember pain after that fall but unsure if this may be related. Pt reports she gets sharp pains still in L hip. Most of her pain in in R hip and sleeping is the worst time . Pt reports her back has just sarted hurting especially when getting out of chair. Pt used to go for walks but cannot anymore d/t pain. Pt reports she can only go about 1 block before pain starts. Pt reports buzzing in L foot in the arch area that has been going on for about 3-4 months. Most of her pain happens if she is laying especailly laying on her sides. Pt has urinary urgency but learned how to manage it a bit. 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; urinary urgency PT-did not coem for very long before clinic closure Treatment Goals Patient/Caregiver Goals be able to sleep at night, be able to go for walks, pain go away Personal Factors Other Personal Factors That May Effect hysterectomy about 15 yrs ago, Therapy/Recovery fibromyalgia, urinary urgency , arthitis PT-OP-C Subjective Start: 01/28/20 15:22 Freq: Status: Active Protocol: Document 01/28/20 15:23 [facility] (Rec: 01/28/20 16:03 [facility] [id number]) Patient Questionnaires Lower Extremity Functional Scale LEFS Score 34/68 OP-PT Pain Assessment Location LB Pain Location Details LB & R hip, R lat sequeira Intensity 7 Scale Used Numeric (0 - 10) Description Aching,Dull Frequency Daily Pain Duration 5 min after stopping activities that hurt Variations/Patterns L lat hip and occasionally into R thigh Pain Aggravating Factors Walking,Bending Other Pain Aggravating Factors in/out of car, sit to stand, sleeping, turning in bed, working in yard Pain Alleviating Factors Heat Other Pain Alleviating Factors 2 ibuprofen & tired enough then can sleep PT-OP-F Manual Assessment Start: 01/28/20 15:22 Freq: Status: Active Protocol: Document 01/28/20 15:23 [facility] (Rec: 01/28/20 16:03 [facility] [id number]) Manual Assessments Joint Mobility Assessment Joint Mobility Assessment L greater trochanter lower, R iliac crest higher PT-OP-G Mobility & Gait Start: 01/28/20 15:22 Freq: Status: Active Protocol: Document 01/28/20 15:23 [facility] (Rec: 01/28/20 16:03 [facility] [id number]) OP Gait Assessment Comments Gait Comments ER of pelvis w/push off and dec push off B, very stiff through UE PT-OP-J Posture/Palpation/Skin Start: 01/28/20 15:22 Freq: Status: Active Protocol: Document 01/28/20 15:23 [facility] (Rec: 01/28/20 16:03 [facility] [id number]) Posture Evaluation Yelena Postural Classification System Yelena Postural Classifications Anterior/Posterior Vertebral Compression Test 1 Elbow Flexion Test 2 Lumbar Protective Mechanism Left AP 1 Lumbar Protective Mechanism Right AP 0 Lumbar Protective Mechanism Left PA 1 Lumbar Protective Mechanism Right PA 1 Comments Posture Comments R pelvic shear, fwd rounded shoulder &head PT-OP-K Range of Motion Start: 01/28/20 15:22 Freq: Status: Active Protocol: Document 01/28/20 15:23 [facility] (Rec: 01/28/20 16:03 [facility] [id number]) Lumbar Spine Range of Motion Lumbar Spine Degrees Flexion 54 Extension 8 Rotation Left 23 Rotation Right 40 Lateral Flexion Left 24 Lateral Flexion Right 9 PT-OP-L Special Tests Start: 01/28/20 15:22 Freq: Status: Active Protocol: Document 01/28/20 15:23 [facility] (Rec: 01/28/20 16:03 [facility] [id number]) Special Tests Lumbar Spine Special Tests Straight Leg Raise Test Results R HS moderately tight; L slightly tigth Slump Test Results neg B PT-OP-M Strength Start: 01/28/20 15:22 Freq: Status: Active Protocol: Document 01/28/20 15:23 [facility] (Rec: 01/28/20 16:03 [facility] [id number]) Hip Strength Hip Manual Muscle Testing Right Flexion (L2) 3 Fair Extension (S1) 3 Fair Abduction 3+ Fair+ Adduction 3 Fair External Rotation 4 Good Internal Rotation 4 Good Left Flexion (L2) 3 Fair Extension (S1) 3 Fair Abduction 3+ Fair+ Adduction 4- Good- External Rotation 4 Good Internal Rotation 4 Good Knee Strength Knee Manual Muscle Testing Right Flexion (S2) 4 Good Extension (L3) 4+ Good+ Left Flexion (S2) 4 Good Extension (L3) 4+ Good+ Ankle/Foot Strength Ankle and Foot Manual Muscle Testing Right Dorsiflexion (L4) 5 Normal Plantarflexion (S1) 5 Normal Inversion 5 Normal Eversion (S1) 4+ Good+ Left Dorsiflexion (L4) 5 Normal Plantarflexion (S1) 4+ Good+ Inversion 4 Good Eversion (S1) 4 Good Comments seated PF testing B PT-OP-Q Treatments Start: 01/28/20 15:22 Freq: Status: Active Protocol: Document 01/28/20 15:23 [facility] (Rec: 01/28/20 16:03 [facility] [id number]) Therapeutic Exercises Supine Exercises HS Side right Reps/Minutes 30 sec Pelvic tilt Reps/Minutes 10 PT-OP-T Assessment and Plan Start: 01/28/20 15:22 Freq: Status: Active Protocol: Document 01/28/20 15:23 [facility] (Rec: 01/28/20 16:03 [facility] [id number]) Physical Therapy Assessment Rehab Potential Rehabilitation Potential Good Evaluation Complexity Number of Personal Factors/Comorbidities 3 or More Number of Body Systems Impaired 4 or More Clinical Presentation at Evaluation Evolving Impairments Impairments Activity Tolerance,Balance, Functional Activities, Functional Mobility,Gait,Pain, Posture,ROM,Soft Tissue Mobility,Strength Goals Three Impairment strength Short Term Goal (STG) Pt will be indep with HEP. STG Duration 02/28/20 Hearing Aid Assistant Goal (LTG) Pt will have at least 4+/5 LE strength and 3/5 LPM to show improved postural stability in order to allow pt to do her typical activities without pain. LTG Duration 03/30/20 Two Impairment Sleep Short Term Goal (STG) Pt will show understanding of good mechanics for sleeping position to dec pain. STG Duration 02/28/20 Hearing Aid Assistant Goal (LTG) Pt will report beinga ble to sleep trhough the night. LTG Duration 03/30/20 One Impairment walking Short Term Goal (STG) Pt will report being able to go for 1/4 mile walk with no more than 4/10 pain. STG Duration 02/28/20 Hearing Aid Assistant Goal (LTG) Pt will report being able to go for walks mult times a week without pain inc greater than 2/10. LTG Duration 03/30/20 Assessment Summary Assessment Pt presents with LBP with radicular pain into RLE and pain occasionally into L hip and buzzing in L foot. She appears to have tenderness over R>L trochanteric bursae. She is complicated by scoliosis which significant affects her posture, which likely creates compression at her lower lumbar region. She has dec core facilitation & strength and dec LE strength, impaired gait, dec ROM and inc pain that limits her ability to do typical daily tasks. Pt would benefit from skilled PT in order to address her deficits and improve her mobility. Physical Therapy Plan Frequency and Duration Frequency of Treatment 2x/Week Duration of Treatment 2 months Plan of Care Start Date 01/28/20 Plan of Care End Date 03/30/20 Therapeutic Interventions Therapeutic Interventions Aquatic Therapy,Balance Training,Gait Training,Home Exercise Program,Joint Mobilizations,Manual Therapy, Neuromuscular Re-education, Patient/Caregiver Education, Self-Care/Home Management,Soft Tissue Mobilization,Taping, Therapeutic Activities, Therapeutic Exercises Modalities Cold Pack/Ice Massage,Electric Stimulation,Hot Packs, Traction- Mechanical, Ultrasound Next Visit Focus/Plan Next Note Type Treatment Note Next Visit Plan review HEP, core progression HEP, possibly try pelvic realignment exercises, STM to back & hip, hip mobs, sleep position edu
--- NOTE | 2020-01-28 18:02 | PT.OPPOC ---
Physical, Occupational & Speech Therapy At [facility] Current Diagnoses Other forms of scoliosis, lumbosacral region (01/28/20) Trochanteric bursitis, right hip (01/28/20) Difficulty in walking, not elsewhere classified (01/28/20) Abnormal posture (01/28/20) Weakness (01/28/20) Visit Care Team Role Provider Type Specialty: Address: Phone: Fax: Email: Israel Lucero MD Primary Care Provider Non-Staff Specialty: Medical Address: [address] [place] [address], [id number] Email: Attending Provider Referring Provider Specialty: Address: Phone: Fax: Email: Plan Of Care PT-OP-T Assessment and Plan Start: 01/28/20 15:22 Freq: Status: Active Protocol: Document 01/28/20 15:23 [facility] (Rec: 01/28/20 16:03 [facility] [id number]) Physical Therapy Assessment Rehab Potential Rehabilitation Potential Good Evaluation Complexity Number of Personal Factors/Comorbidities 3 or More Number of Body Systems Impaired 4 or More Clinical Presentation at Evaluation Evolving Impairments Impairments Activity Tolerance,Balance, Functional Activities, Functional Mobility,Gait,Pain, Posture,ROM,Soft Tissue Mobility,Strength Goals Three Impairment strength Short Term Goal (STG) Pt will be indep with HEP. STG Duration 02/28/20 Vp Construction Goal (LTG) Pt will have at least 4+/5 LE strength and 3/5 LPM to show improved postural stability in order to allow pt to do her typical activities without pain. LTG Duration 03/30/20 Two Impairment Sleep Short Term Goal (STG) Pt will show understanding of good mechanics for sleeping position to dec pain. STG Duration 02/28/20 Vp Construction Goal (LTG) Pt will report beinga ble to sleep trhough the night. LTG Duration 03/30/20 One Impairment walking Short Term Goal (STG) Pt will report being able to go for 1/4 mile walk with no more than 4/10 pain. STG Duration 02/28/20 Correction Goal (LTG) Pt will report being able to go for walks mult times a week without pain inc greater than 2/10. LTG Duration 03/30/20 Assessment Summary Assessment Pt presents with LBP with radicular pain into RLE and pain occasionally into L hip and buzzing in L foot. She appears to have tenderness over R>L trochanteric bursae. She is complicated by scoliosis which significant affects her posture, which likely creates compression at her lower lumbar region. She has dec core facilitation & strength and dec LE strength, impaired gait, dec ROM and inc pain that limits her ability to do typical daily tasks. Pt would benefit from skilled PT in order to address her deficits and improve her mobility. Physical Therapy Plan Frequency and Duration Frequency of Treatment 2x/Week Duration of Treatment 2 months Plan of Care Start Date 01/28/20 Plan of Care End Date 03/30/20 Therapeutic Interventions Therapeutic Interventions Aquatic Therapy,Balance Training,Gait Training,Home Exercise Program,Joint Mobilizations,Manual Therapy, Neuromuscular Re-education, Patient/Caregiver Education, Self-Care/Home Management,Soft Tissue Mobilization,Taping, Therapeutic Activities, Therapeutic Exercises Modalities Cold Pack/Ice Massage,Electric Stimulation,Hot Packs, Traction- Mechanical, Ultrasound Next Visit Focus/Plan Next Note Type Treatment Note Next Visit Plan review HEP, core progression HEP, possibly try pelvic realignment exercises, STM to back & hip, hip mobs, sleep position edu Plan of Care Dates Plan of Care Start Date 01/28/20 Plan of Care End Date 03/30/20 Electronically Signed by: Charline Gan, PT 01/28/20 3613 Please Sign and Return: I have reviewed this Plan of Care and certify that the skilled therapy services above are required to meet the patient?s needs. Physician Signature Date Printed Name and Credentials Clinical Instructor Signature Printed Name and Credentials
--- NOTE | 2020-01-30 12:54 | PT.OTN ---
Current Diagnoses Other forms of scoliosis, lumbosacral region (01/30/20) Trochanteric bursitis, right hip (01/30/20) Difficulty in walking, not elsewhere classified (01/30/20) Abnormal posture (01/30/20) Weakness (01/30/20) Physical Therapy Treatment Note PT-OP-A Visit Information Start: 01/28/20 15:22 Freq: Status: Active Protocol: Document 01/30/20 11:21 [facility] (Rec: 01/30/20 12:54 [facility] [id number]) Out-Patient Physical Therapy Visit Information Visit Information Visit Type Treatment Note Visit Note 08/26 Visit Start Time 11:21 Visit Stop Time 12:00 Total Visit Minutes 39 Visit Number 2 Number of JET INSPECTOR Visits 0 PT-OP-B Current Condition Start: 01/28/20 15:22 Freq: Status: Active Protocol: Document 01/28/20 15:23 [facility] (Rec: 01/28/20 16:03 [facility] [id number]) Current Condition History of Current Condition Onset Date 6-8 months Current Complaints LBP, R hip & leg History of Current Condition Pt had pain that started on L side hipthen started to get better but then went over to R side. Pt had a fall about a year ago when going up the stairs and caught the toe of the shoe ended up falling against the stairs. Does not remember pain after that fall but unsure if this may be related. Pt reports she gets sharp pains still in L hip. Most of her pain in in R hip and sleeping is the worst time . Pt reports her back has just sarted hurting especially when getting out of chair. Pt used to go for walks but cannot anymore d/t pain. Pt reports she can only go about 1 block before pain starts. Pt reports buzzing in L foot in the arch area that has been going on for about 3-4 months. Most of her pain happens if she is laying especailly laying on her sides. Pt has urinary urgency but learned how to manage it a bit. 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; urinary urgency PT-did not coem for very long before clinic closure Treatment Goals Patient/Caregiver Goals be able to sleep at night, be able to go for walks, pain go away Personal Factors Other Personal Factors That May Effect hysterectomy about 15 yrs ago, Therapy/Recovery fibromyalgia, urinary urgency , arthitis PT-OP-C Subjective Start: 01/28/20 15:22 Freq: Status: Active Protocol: Document 01/30/20 11:21 [facility] (Rec: 01/30/20 12:54 [facility] [id number]) OP-PT Subjective Patient Comments Patient Comments Pt reports compliance with exercises. Had a bad night sleeping last night PT-OP-F Manual Assessment Start: 01/28/20 15:22 Freq: Status: Active Protocol: Document 01/28/20 15:23 [facility] (Rec: 01/28/20 16:03 [facility] [id number]) Manual Assessments Joint Mobility Assessment Joint Mobility Assessment L greater trochanter lower, R iliac crest higher PT-OP-G Mobility & Gait Start: 01/28/20 15:22 Freq: Status: Active Protocol: Document 01/28/20 15:23 [facility] (Rec: 01/28/20 16:03 [facility] [id number]) OP Gait Assessment Comments Gait Comments ER of pelvis w/push off and dec push off B, very stiff through UE PT-OP-J Posture/Palpation/Skin Start: 01/28/20 15:22 Freq: Status: Active Protocol: Document 01/28/20 15:23 [facility] (Rec: 01/28/20 16:03 [facility] [id number]) Posture Evaluation [facility] Postural Classification System Yelena Postural Classifications Anterior/Posterior Vertebral Compression Test 1 Elbow Flexion Test 2 Lumbar Protective Mechanism Left AP 1 Lumbar Protective Mechanism Right AP 0 Lumbar Protective Mechanism Left PA 1 Lumbar Protective Mechanism Right PA 1 Comments Posture Comments R pelvic shear, fwd rounded shoulder &head PT-OP-K Range of Motion Start: 01/28/20 15:22 Freq: Status: Active Protocol: Document 01/28/20 15:23 [facility] (Rec: 01/28/20 16:03 [facility] [id number]) Lumbar Spine Range of Motion Lumbar Spine Degrees Flexion 54 Extension 8 Rotation Left 23 Rotation Right 40 Lateral Flexion Left 24 Lateral Flexion Right 9 PT-OP-L Special Tests Start: 01/28/20 15:22 Freq: Status: Active Protocol: Document 01/28/20 15:23 [facility] (Rec: 01/28/20 16:03 [facility] [id number]) Special Tests Lumbar Spine Special Tests Straight Leg Raise Test Results R HS moderately tight; L slightly tigth Slump Test Results neg B PT-OP-M Strength Start: 01/28/20 15:22 Freq: Status: Active Protocol: Document 01/28/20 15:23 [facility] (Rec: 01/28/20 16:03 [facility] [id number]) Hip Strength Hip Manual Muscle Testing Right Flexion (L2) 3 Fair Extension (S1) 3 Fair Abduction 3+ Fair+ Adduction 3 Fair External Rotation 4 Good Internal Rotation 4 Good Left Flexion (L2) 3 Fair Extension (S1) 3 Fair Abduction 3+ Fair+ Adduction 4- Good- External Rotation 4 Good Internal Rotation 4 Good Knee Strength Knee Manual Muscle Testing Right Flexion (S2) 4 Good Extension (L3) 4+ Good+ Left Flexion (S2) 4 Good Extension (L3) 4+ Good+ Ankle/Foot Strength Ankle and Foot Manual Muscle Testing Right Dorsiflexion (L4) 5 Normal Plantarflexion (S1) 5 Normal Inversion 5 Normal Eversion (S1) 4+ Good+ Left Dorsiflexion (L4) 5 Normal Plantarflexion (S1) 4+ Good+ Inversion 4 Good Eversion (S1) 4 Good Comments seated PF testing B PT-OP-Q Treatments Start: 01/28/20 15:22 Freq: Status: Active Protocol: Document 01/30/20 11:21 [facility] (Rec: 01/30/20 12:54 [facility] [id number]) Therapeutic Exercises Supine Exercises pelvic realignment Side bilateral Reps/Minutes 3 sec x5 HS Side right Reps/Minutes 30 sec Pelvic tilt Reps/Minutes 10 Therapeutic Activity Therapeutic Activity sleep Name s/l sleeping posture Manual Therapy Treatment Soft Tissue Mobilization QL Body Location R Mobilization Type Rolling,Sustained Pressure Intensity/Depth Moderate ITB Mobilization Type Rolling Intensity/Depth Moderate Body Position Sidelying glutes Body Location R Mobilization Type Rolling,Sustained Pressure Intensity/Depth Moderate Body Position Sidelying Joint Mobilizations hip Joint R Direction inf FM PT-OP-T Assessment and Plan Start: 01/28/20 15:22 Freq: Status: Active Protocol: Document 01/30/20 11:21 [facility] (Rec: 01/30/20 12:54 [facility] [id number]) Physical Therapy Assessment Goals Three Impairment strength Short Term Goal (STG) Pt will be indep with HEP. STG Duration 02/28/20 [facility] Goal (LTG) Pt will have at least 4+/5 LE strength and 3/5 LPM to show improved postural stability in order to allow pt to do her typical activities without pain. LTG Duration 03/30/20 Two Impairment Sleep Short Term Goal (STG) Pt will show understanding of good mechanics for sleeping position to dec pain. STG Duration 02/28/20 [facility] Goal (LTG) Pt will report beinga ble to sleep trhough the night. LTG Duration 03/30/20 One Impairment walking Short Term Goal (STG) Pt will report being able to go for 1/4 mile walk with no more than 4/10 pain. STG Duration 02/28/20 [facility] Goal (LTG) Pt will report being able to go for walks mult times a week without pain inc greater than 2/10. LTG Duration 03/30/20 Assessment Summary Assessment Pt required cuieng for focus on breathing duing exercises. She reported inc comfort with sleep position education. Pt has significant tightness in R glutes & ITB that likely lead to hip pain. IMproved hip flex w/inf glide Physical Therapy Plan Frequency and Duration Frequency of Treatment 2x/Week Duration of Treatment 2 months Plan of Care Start Date 01/28/20 Plan of Care End Date 03/30/20 Next Visit Focus/Plan Next Note Type Treatment Note Next Visit Plan review HEP, core progression HEP, review pelvic realignment exercises, STM to back & hip, hip mobs, sleep position edu
--- NOTE | 2020-02-04 10:35 | PT.OTN ---
Current Diagnoses Other forms of scoliosis, lumbosacral region (02/04/20) Trochanteric bursitis, right hip (02/04/20) Difficulty in walking, not elsewhere classified (02/04/20) Abnormal posture (02/04/20) Weakness (02/04/20) Physical Therapy Treatment Note PT-OP-A Visit Information Start: 01/28/20 15:22 Freq: Status: Active Protocol: Document 02/04/20 09:54 [facility] (Rec: 02/04/20 10:34 [facility] [id number]) Out-Patient Physical Therapy Visit Information Visit Information Visit Type Treatment Note Visit Note 09/23 Visit Start Time 09:50 Visit Stop Time 10:30 Total Visit Minutes 40 Visit Number 3 Number of JAMB CUTTER Visits 0 PT-OP-B Current Condition Start: 01/28/20 15:22 Freq: Status: Active Protocol: Document 01/28/20 15:23 [facility] (Rec: 01/28/20 16:03 [facility] [id number]) Current Condition History of Current Condition Onset Date 6-8 months Current Complaints LBP, R hip & leg History of Current Condition Pt had pain that started on L side hipthen started to get better but then went over to R side. Pt had a fall about a year ago when going up the stairs and caught the toe of the shoe ended up falling against the stairs. Does not remember pain after that fall but unsure if this may be related. Pt reports she gets sharp pains still in L hip. Most of her pain in in R hip and sleeping is the worst time . Pt reports her back has just sarted hurting especially when getting out of chair. Pt used to go for walks but cannot anymore d/t pain. Pt reports she can only go about 1 block before pain starts. Pt reports buzzing in L foot in the arch area that has been going on for about 3-4 months. Most of her pain happens if she is laying especailly laying on her sides. Pt has urinary urgency but learned how to manage it a bit. 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; urinary urgency PT-did not coem for very long before clinic closure Treatment Goals Patient/Caregiver Goals be able to sleep at night, be able to go for walks, pain go away Personal Factors Other Personal Factors That May Effect hysterectomy about 15 yrs ago, Therapy/Recovery fibromyalgia, urinary urgency , arthitis PT-OP-C Subjective Start: 01/28/20 15:22 Freq: Status: Active Protocol: Document 02/04/20 09:54 [facility] (Rec: 02/04/20 10:34 [facility] [id number]) OP-PT Subjective Patient Comments Patient Comments Pt reports she feels like the exercise smay help a little PT-OP-F Manual Assessment Start: 01/28/20 15:22 Freq: Status: Active Protocol: Document 01/28/20 15:23 [facility] (Rec: 01/28/20 16:03 [facility] [id number]) Manual Assessments Joint Mobility Assessment Joint Mobility Assessment L greater trochanter lower, R iliac crest higher PT-OP-G Mobility & Gait Start: 01/28/20 15:22 Freq: Status: Active Protocol: Document 01/28/20 15:23 [facility] (Rec: 01/28/20 16:03 [facility] [id number]) OP Gait Assessment Comments Gait Comments ER of pelvis w/push off and dec push off B, very stiff through UE PT-OP-J Posture/Palpation/Skin Start: 01/28/20 15:22 Freq: Status: Active Protocol: Document 01/28/20 15:23 [facility] (Rec: 01/28/20 16:03 [facility] [id number]) Posture Evaluation Yelena Postural Classification System Yelena Postural Classifications Anterior/Posterior Vertebral Compression Test 1 Elbow Flexion Test 2 Lumbar Protective Mechanism Left AP 1 Lumbar Protective Mechanism Right AP 0 Lumbar Protective Mechanism Left PA 1 Lumbar Protective Mechanism Right PA 1 Comments Posture Comments R pelvic shear, fwd rounded shoulder &head PT-OP-K Range of Motion Start: 01/28/20 15:22 Freq: Status: Active Protocol: Document 01/28/20 15:23 [facility] (Rec: 01/28/20 16:03 [facility] [id number]) Lumbar Spine Range of Motion Lumbar Spine Degrees Flexion 54 Extension 8 Rotation Left 23 Rotation Right 40 Lateral Flexion Left 24 Lateral Flexion Right 9 PT-OP-L Special Tests Start: 01/28/20 15:22 Freq: Status: Active Protocol: Document 01/28/20 15:23 [facility] (Rec: 01/28/20 16:03 [facility] [id number]) Special Tests Lumbar Spine Special Tests Straight Leg Raise Test Results R HS moderately tight; L slightly tigth Slump Test Results neg B PT-OP-M Strength Start: 01/28/20 15:22 Freq: Status: Active Protocol: Document 01/28/20 15:23 [facility] (Rec: 01/28/20 16:03 [facility] [id number]) Hip Strength Hip Manual Muscle Testing Right Flexion (L2) 3 Fair Extension (S1) 3 Fair Abduction 3+ Fair+ Adduction 3 Fair External Rotation 4 Good Internal Rotation 4 Good Left Flexion (L2) 3 Fair Extension (S1) 3 Fair Abduction 3+ Fair+ Adduction 4- Good- External Rotation 4 Good Internal Rotation 4 Good Knee Strength Knee Manual Muscle Testing Right Flexion (S2) 4 Good Extension (L3) 4+ Good+ Left Flexion (S2) 4 Good Extension (L3) 4+ Good+ Ankle/Foot Strength Ankle and Foot Manual Muscle Testing Right Dorsiflexion (L4) 5 Normal Plantarflexion (S1) 5 Normal Inversion 5 Normal Eversion (S1) 4+ Good+ Left Dorsiflexion (L4) 5 Normal Plantarflexion (S1) 4+ Good+ Inversion 4 Good Eversion (S1) 4 Good Comments seated PF testing B PT-OP-Q Treatments Start: 01/28/20 15:22 Freq: Status: Active Protocol: Document 02/04/20 09:54 [facility] (Rec: 02/04/20 10:34 [facility] [id number]) Therapeutic Exercises Supine Exercises TA Supine Exercise Name 1. BKFO 2. march Side bilateral Reps/Minutes 10 ea Comments focus on TA isometric Supine Exercise Name flex single leg Side bilateral Reps/Minutes 10 sec Comments stopped d/t no core response pelvic realignment Side bilateral Reps/Minutes 3 sec x5 Manual Therapy Treatment Soft Tissue Mobilization iliacus Body Location R Mobilization Type Rolling,Sustained Pressure Body Position Sidelying QL Body Location R Mobilization Type Rolling,Sustained Pressure Intensity/Depth Moderate ITB Mobilization Type Rolling Intensity/Depth Moderate Body Position Sidelying glutes Body Location R Mobilization Type Rolling,Sustained Pressure Intensity/Depth Moderate Body Position Sidelying Neuro Re-Education Treatment Other Activities PNF Details ant elevaiton/post dep Comments rhythmic iinitiaon L PT-OP-T Assessment and Plan Start: 01/28/20 15:22 Freq: Status: Active Protocol: Document 02/04/20 09:54 [facility] (Rec: 02/04/20 10:34 [facility] [id number]) Physical Therapy Assessment Goals Three Impairment strength Short Term Goal (STG) Pt will be indep with HEP. STG Duration 02/28/20 Lpn Cma Goal (LTG) Pt will have at least 4+/5 LE strength and 3/5 LPM to show improved postural stability in order to allow pt to do her typical activities without pain. LTG Duration 03/30/20 Two Impairment Sleep Short Term Goal (STG) Pt will show understanding of good mechanics for sleeping position to dec pain. STG Duration 02/28/20 Lpn Cma Goal (LTG) Pt will report beinga ble to sleep trhough the night. LTG Duration 03/30/20 One Impairment walking Short Term Goal (STG) Pt will report being able to go for 1/4 mile walk with no more than 4/10 pain. STG Duration 02/28/20 Lpn Cma Goal (LTG) Pt will report being able to go for walks mult times a week without pain inc greater than 2/10. LTG Duration 03/30/20 Assessment Summary Assessment Pt had significant difficulty with engaging core & maintaining core engagement while doing LE movements. She improved with pelvic depression after manual and started to work on PNF patterns to start to work towards CRISTIANE. Improved soft tissue mboility today. Physical Therapy Plan Frequency and Duration Frequency of Treatment 2x/Week Duration of Treatment 2 months Plan of Care Start Date 01/28/20 Plan of Care End Date 03/30/20 Next Visit Focus/Plan Next Note Type Treatment Note Next Visit Plan PNF & work on hip mobs & core stability training
--- NOTE | 2020-02-06 14:34 | PT.OTN ---
Current Diagnoses Other forms of scoliosis, lumbosacral region (02/06/20) Trochanteric bursitis, right hip (02/06/20) Difficulty in walking, not elsewhere classified (02/06/20) Abnormal posture (02/06/20) Weakness (02/06/20) Physical Therapy Treatment Note PT-OP-A Visit Information Start: 01/28/20 15:22 Freq: Status: Active Protocol: Document 02/06/20 12:59 [facility] (Rec: 02/06/20 14:34 [facility] [id number]) Out-Patient Physical Therapy Visit Information Visit Information Visit Type Treatment Note Visit Note 10/24 Visit Start Time 13:00 Visit Stop Time 13:45 Total Visit Minutes 45 Visit Number 4 Number of SPEEDOMETER INSPECTOR Visits 0 PT-OP-B Current Condition Start: 01/28/20 15:22 Freq: Status: Active Protocol: Document 01/28/20 15:23 [facility] (Rec: 01/28/20 16:03 [facility] [id number]) Current Condition History of Current Condition Onset Date 6-8 months Current Complaints LBP, R hip & leg History of Current Condition Pt had pain that started on L side hipthen started to get better but then went over to R side. Pt had a fall about a year ago when going up the stairs and caught the toe of the shoe ended up falling against the stairs. Does not remember pain after that fall but unsure if this may be related. Pt reports she gets sharp pains still in L hip. Most of her pain in in R hip and sleeping is the worst time . Pt reports her back has just sarted hurting especially when getting out of chair. Pt used to go for walks but cannot anymore d/t pain. Pt reports she can only go about 1 block before pain starts. Pt reports buzzing in L foot in the arch area that has been going on for about 3-4 months. Most of her pain happens if she is laying especailly laying on her sides. Pt has urinary urgency but learned how to manage it a bit. 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; urinary urgency PT-did not coem for very long before clinic closure Treatment Goals Patient/Caregiver Goals be able to sleep at night, be able to go for walks, pain go away Personal Factors Other Personal Factors That May Effect hysterectomy about 15 yrs ago, Therapy/Recovery fibromyalgia, urinary urgency , arthitis PT-OP-C Subjective Start: 01/28/20 15:22 Freq: Status: Active Protocol: Document 02/06/20 12:59 [facility] (Rec: 02/06/20 14:34 [facility] [id number]) OP-PT Subjective Patient Comments Patient Comments Pt reports her knees are really hurting her today. She feels like aches move all over . She will mention this to MD next week. Patient Reported Progress Same PT-OP-F Manual Assessment Start: 01/28/20 15:22 Freq: Status: Active Protocol: Document 01/28/20 15:23 [facility] (Rec: 01/28/20 16:03 [facility] [id number]) Manual Assessments Joint Mobility Assessment Joint Mobility Assessment L greater trochanter lower, R iliac crest higher PT-OP-G Mobility & Gait Start: 01/28/20 15:22 Freq: Status: Active Protocol: Document 01/28/20 15:23 [facility] (Rec: 01/28/20 16:03 [facility] [id number]) OP Gait Assessment Comments Gait Comments ER of pelvis w/push off and dec push off B, very stiff through UE PT-OP-J Posture/Palpation/Skin Start: 01/28/20 15:22 Freq: Status: Active Protocol: Document 01/28/20 15:23 [facility] (Rec: 01/28/20 16:03 [facility] [id number]) Posture Evaluation Yelena Postural Classification System Yelena Postural Classifications Anterior/Posterior Vertebral Compression Test 1 Elbow Flexion Test 2 Lumbar Protective Mechanism Left AP 1 Lumbar Protective Mechanism Right AP 0 Lumbar Protective Mechanism Left PA 1 Lumbar Protective Mechanism Right PA 1 Comments Posture Comments R pelvic shear, fwd rounded shoulder &head PT-OP-K Range of Motion Start: 01/28/20 15:22 Freq: Status: Active Protocol: Document 01/28/20 15:23 [facility] (Rec: 01/28/20 16:03 [facility] [id number]) Lumbar Spine Range of Motion Lumbar Spine Degrees Flexion 54 Extension 8 Rotation Left 23 Rotation Right 40 Lateral Flexion Left 24 Lateral Flexion Right 9 PT-OP-L Special Tests Start: 01/28/20 15:22 Freq: Status: Active Protocol: Document 01/28/20 15:23 [facility] (Rec: 01/28/20 16:03 [facility] [id number]) Special Tests Lumbar Spine Special Tests Straight Leg Raise Test Results R HS moderately tight; L slightly tigth Slump Test Results neg B PT-OP-M Strength Start: 01/28/20 15:22 Freq: Status: Active Protocol: Document 01/28/20 15:23 [facility] (Rec: 01/28/20 16:03 [facility] [id number]) Hip Strength Hip Manual Muscle Testing Right Flexion (L2) 3 Fair Extension (S1) 3 Fair Abduction 3+ Fair+ Adduction 3 Fair External Rotation 4 Good Internal Rotation 4 Good Left Flexion (L2) 3 Fair Extension (S1) 3 Fair Abduction 3+ Fair+ Adduction 4- Good- External Rotation 4 Good Internal Rotation 4 Good Knee Strength Knee Manual Muscle Testing Right Flexion (S2) 4 Good Extension (L3) 4+ Good+ Left Flexion (S2) 4 Good Extension (L3) 4+ Good+ Ankle/Foot Strength Ankle and Foot Manual Muscle Testing Right Dorsiflexion (L4) 5 Normal Plantarflexion (S1) 5 Normal Inversion 5 Normal Eversion (S1) 4+ Good+ Left Dorsiflexion (L4) 5 Normal Plantarflexion (S1) 4+ Good+ Inversion 4 Good Eversion (S1) 4 Good Comments seated PF testing B PT-OP-Q Treatments Start: 01/28/20 15:22 Freq: Status: Active Protocol: Document 02/06/20 12:59 [facility] (Rec: 02/06/20 14:34 [facility] [id number]) Therapeutic Exercises Supine Exercises TA Supine Exercise Name 1. BKFO 2. march Side bilateral Reps/Minutes 15ea Comments focus on TA Manual Therapy Treatment Soft Tissue Mobilization iliacus Body Location L Mobilization Type Rolling,Sustained Pressure Body Position Supine Comments w/ER/IR ITB Body Location L Mobilization Type Rolling Intensity/Depth Moderate Body Position Supine Comments w/ER/IR Joint Mobilizations hip Joint L Direction on axis ER FM supine Neuro Re-Education Treatment Other Activities PNF Details ant elevaiton/post dep Comments 1.rhythmic iinitiaon L 2. sustained holds L 3. Combo of isotonics L PT-OP-T Assessment and Plan Start: 01/28/20 15:22 Freq: Status: Active Protocol: Document 02/06/20 12:59 [facility] (Rec: 02/06/20 14:34 [facility] [id number]) Physical Therapy Assessment Goals Three Impairment strength Short Term Goal (STG) Pt will be indep with HEP. STG Duration 02/28/20 Edi Specialist Goal (LTG) Pt will have at least 4+/5 LE strength and 3/5 LPM to show improved postural stability in order to allow pt to do her typical activities without pain. LTG Duration 03/30/20 Two Impairment Sleep Short Term Goal (STG) Pt will show understanding of good mechanics for sleeping position to dec pain. STG Duration 02/28/20 Edi Specialist Goal (LTG) Pt will report beinga ble to sleep trhough the night. LTG Duration 03/30/20 One Impairment walking Short Term Goal (STG) Pt will report being able to go for 1/4 mile walk with no more than 4/10 pain. STG Duration 02/28/20 Edi Specialist Goal (LTG) Pt will report being able to go for walks mult times a week without pain inc greater than 2/10. LTG Duration 03/30/20 Assessment Summary Assessment Pt had improved ER with less pain after manual treatment to L hip and side allowing improved motion for BKFO exercise. Improved elongation of trunk after PNF Physical Therapy Plan Frequency and Duration Frequency of Treatment 2x/Week Duration of Treatment 2 months Plan of Care Start Date 01/28/20 Plan of Care End Date 03/30/20 Next Visit Focus/Plan Next Note Type Treatment Note Next Visit Plan PNF & work on hip mobs & core stability training
--- NOTE | 2020-02-10 14:38 | PT.OTN ---
Current Diagnoses Other forms of scoliosis, lumbosacral region (02/10/20) Trochanteric bursitis, right hip (02/10/20) Difficulty in walking, not elsewhere classified (02/10/20) Abnormal posture (02/10/20) Weakness (02/10/20) Physical Therapy Treatment Note PT-OP-A Visit Information Start: 01/28/20 15:22 Freq: Status: Active Protocol: Document 02/10/20 13:50 SP (Rec: 02/10/20 16:21 SP [id number]) Out-Patient Physical Therapy Visit Information Visit Information Visit Type Treatment Note Visit Start Time 13:50 Visit Stop Time 14:38 Total Visit Minutes 48 Visit Number 5 Number of SPECIAL EFFECTS ARTIST Visits 1 PT-OP-B Current Condition Start: 01/28/20 15:22 Freq: Status: Active Protocol: Document 01/28/20 15:23 [facility] (Rec: 01/28/20 16:03 [facility] [id number]) Current Condition History of Current Condition Onset Date 6-8 months Current Complaints LBP, R hip & leg History of Current Condition Pt had pain that started on L side hipthen started to get better but then went over to R side. Pt had a fall about a year ago when going up the stairs and caught the toe of the shoe ended up falling against the stairs. Does not remember pain after that fall but unsure if this may be related. Pt reports she gets sharp pains still in L hip. Most of her pain in in R hip and sleeping is the worst time . Pt reports her back has just sarted hurting especially when getting out of chair. Pt used to go for walks but cannot anymore d/t pain. Pt reports she can only go about 1 block before pain starts. Pt reports buzzing in L foot in the arch area that has been going on for about 3-4 months. Most of her pain happens if she is laying especailly laying on her sides. Pt has urinary urgency but learned how to manage it a bit. 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; urinary urgency PT-did not coem for very long before clinic closure Treatment Goals Patient/Caregiver Goals be able to sleep at night, be able to go for walks, pain go away Personal Factors Other Personal Factors That May Effect hysterectomy about 15 yrs ago, Therapy/Recovery fibromyalgia, urinary urgency , arthitis PT-OP-C Subjective Start: 01/28/20 15:22 Freq: Status: Active Protocol: Document 02/10/20 13:50 SP (Rec: 02/10/20 16:21 SP [id number]) OP-PT Subjective Patient Comments Patient Comments Pt reports experiencing pain mostly at night but walking as well over R lateral thigh down to Lateral lower leg and at times over anterior thigh. Currently 1/10 pain over R low back into lateral hip. Posture foward hip hinge trunk and L wt shifted off to L. Pt stated compliant with HEP with no adverse affects. PT-OP-F Manual Assessment Start: 01/28/20 15:22 Freq: Status: Active Protocol: Document 01/28/20 15:23 [facility] (Rec: 01/28/20 16:03 [facility] [id number]) Manual Assessments Joint Mobility Assessment Joint Mobility Assessment L greater trochanter lower, R iliac crest higher PT-OP-G Mobility & Gait Start: 01/28/20 15:22 Freq: Status: Active Protocol: Document 01/28/20 15:23 [facility] (Rec: 01/28/20 16:03 [facility] [id number]) OP Gait Assessment Comments Gait Comments ER of pelvis w/push off and dec push off B, very stiff through UE PT-OP-J Posture/Palpation/Skin Start: 01/28/20 15:22 Freq: Status: Active Protocol: Document 01/28/20 15:23 [facility] (Rec: 01/28/20 16:03 [facility] [id number]) Posture Evaluation Yelena Postural Classification System Yelena Postural Classifications Anterior/Posterior Vertebral Compression Test 1 Elbow Flexion Test 2 Lumbar Protective Mechanism Left AP 1 Lumbar Protective Mechanism Right AP 0 Lumbar Protective Mechanism Left PA 1 Lumbar Protective Mechanism Right PA 1 Comments Posture Comments R pelvic shear, fwd rounded shoulder &head PT-OP-K Range of Motion Start: 01/28/20 15:22 Freq: Status: Active Protocol: Document 01/28/20 15:23 [facility] (Rec: 01/28/20 16:03 [facility] [id number]) Lumbar Spine Range of Motion Lumbar Spine Degrees Flexion 54 Extension 8 Rotation Left 23 Rotation Right 40 Lateral Flexion Left 24 Lateral Flexion Right 9 PT-OP-L Special Tests Start: 01/28/20 15:22 Freq: Status: Active Protocol: Document 01/28/20 15:23 [facility] (Rec: 01/28/20 16:03 [facility] [id number]) Special Tests Lumbar Spine Special Tests Straight Leg Raise Test Results R HS moderately tight; L slightly tigth Slump Test Results neg B PT-OP-M Strength Start: 01/28/20 15:22 Freq: Status: Active Protocol: Document 01/28/20 15:23 [facility] (Rec: 01/28/20 16:03 [facility] [id number]) Hip Strength Hip Manual Muscle Testing Right Flexion (L2) 3 Fair Extension (S1) 3 Fair Abduction 3+ Fair+ Adduction 3 Fair External Rotation 4 Good Internal Rotation 4 Good Left Flexion (L2) 3 Fair Extension (S1) 3 Fair Abduction 3+ Fair+ Adduction 4- Good- External Rotation 4 Good Internal Rotation 4 Good Knee Strength Knee Manual Muscle Testing Right Flexion (S2) 4 Good Extension (L3) 4+ Good+ Left Flexion (S2) 4 Good Extension (L3) 4+ Good+ Ankle/Foot Strength Ankle and Foot Manual Muscle Testing Right Dorsiflexion (L4) 5 Normal Plantarflexion (S1) 5 Normal Inversion 5 Normal Eversion (S1) 4+ Good+ Left Dorsiflexion (L4) 5 Normal Plantarflexion (S1) 4+ Good+ Inversion 4 Good Eversion (S1) 4 Good Comments seated PF testing B PT-OP-Q Treatments Start: 01/28/20 15:22 Freq: Status: Active Protocol: Document 02/10/20 13:50 SP (Rec: 02/10/20 16:21 SP [id number]) Therapeutic Exercises Supine Exercises TA Supine Exercise Name 1. BKFO (no complete today) 2. march Side bilateral Reps/Minutes 15ea Comments focus on TA pelvic realignment Supine Exercise Name adduction and HS isometric, SL pelvic lift Side bilateral Reps/Minutes 3 sec x5 HS Supine Exercise Name stretch Side right Reps/Minutes 30 sec Standing Exercises sit to stand Standing Exercise Name straight back, hands on lap hip hinge Equipment Used 20 table height, small ball Reps/Minutes x5 Comments ball between knees, cued knee alignment with knee with toes, glut facil. PT-OP-T Assessment and Plan Start: 01/28/20 15:22 Freq: Status: Active Protocol: Document 02/10/20 13:50 SP (Rec: 02/10/20 16:21 SP [id number]) Physical Therapy Assessment Goals Three Impairment strength Short Term Goal (STG) Pt will be indep with HEP. STG Duration 02/28/20 Nursing Home Goal (LTG) Pt will have at least 4+/5 LE strength and 3/5 LPM to show improved postural stability in order to allow pt to do her typical activities without pain. LTG Duration 03/30/20 Two Impairment Sleep Short Term Goal (STG) Pt will show understanding of good mechanics for sleeping position to dec pain. STG Duration 02/28/20 Lead Business Systems Analyst Goal (LTG) Pt will report beinga ble to sleep trhough the night. LTG Duration 03/30/20 One Impairment walking Short Term Goal (STG) Pt will report being able to go for 1/4 mile walk with no more than 4/10 pain. STG Duration 02/28/20 Nursing Home Goal (LTG) Pt will report being able to go for walks mult times a week without pain inc greater than 2/10. LTG Duration 03/30/20 Assessment Summary Assessment Tx focused on posture, alignment of LS, BLE for proper glut and core facilitation to decrease over recruit LB musculature improvement in carry over by end of tx. Added core march and sit to stands, noted improvement in patient's upright trunk posture when leaving. Trialed standing march with table contact and pt reported increase discomfort R LBP so stopped. Physical Therapy Plan Frequency and Duration Frequency of Treatment 2x/Week Duration of Treatment 2 months Plan of Care Start Date 01/28/20 Plan of Care End Date 03/30/20 Therapeutic Interventions Therapeutic Interventions Aquatic Therapy,Balance Training,Gait Training,Home Exercise Program,Joint Mobilizations,Manual Therapy, Neuromuscular Re-education, Patient/Caregiver Education, Self-Care/Home Management,Soft Tissue Mobilization,Taping, Therapeutic Activities, Therapeutic Exercises Modalities Cold Pack/Ice Massage,Electric Stimulation,Hot Packs, Traction- Mechanical, Ultrasound Next Visit Focus/Plan Next Note Type Treatment Note Next Visit Plan Assess respsonse to last tx: review supine core HEP, added sit to stands and core march with proper knee/hip/spinal alignment. Continue per PT POC: PNF & work on hip mobs & core stability training
--- NOTE | 2020-02-14 15:20 | PT.OTN ---
Current Diagnoses Other forms of scoliosis, lumbosacral region (02/14/20) Trochanteric bursitis, right hip (02/14/20) Difficulty in walking, not elsewhere classified (02/14/20) Abnormal posture (02/14/20) Weakness (02/14/20) Physical Therapy Treatment Note PT-OP-A Visit Information Start: 01/28/20 15:22 Freq: Status: Active Protocol: Document 02/14/20 14:39 TP (Rec: 02/14/20 15:52 TP [id number]) Out-Patient Physical Therapy Visit Information Visit Information Visit Type Treatment Note Visit Start Time 14:39 Visit Stop Time 15:20 Total Visit Minutes 41 Visit Number 6 Number of SCHOOL EXAMINER Visits 2 PT-OP-B Current Condition Start: 01/28/20 15:22 Freq: Status: Active Protocol: Document 01/28/20 15:23 [facility] (Rec: 01/28/20 16:03 [facility] [id number]) Current Condition History of Current Condition Onset Date 6-8 months Current Complaints LBP, R hip & leg History of Current Condition Pt had pain that started on L side hipthen started to get better but then went over to R side. Pt had a fall about a year ago when going up the stairs and caught the toe of the shoe ended up falling against the stairs. Does not remember pain after that fall but unsure if this may be related. Pt reports she gets sharp pains still in L hip. Most of her pain in in R hip and sleeping is the worst time . Pt reports her back has just sarted hurting especially when getting out of chair. Pt used to go for walks but cannot anymore d/t pain. Pt reports she can only go about 1 block before pain starts. Pt reports buzzing in L foot in the arch area that has been going on for about 3-4 months. Most of her pain happens if she is laying especailly laying on her sides. Pt has urinary urgency but learned how to manage it a bit. 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; urinary urgency PT-did not coem for very long before clinic closure Treatment Goals Patient/Caregiver Goals be able to sleep at night, be able to go for walks, pain go away Personal Factors Other Personal Factors That May Effect hysterectomy about 15 yrs ago, Therapy/Recovery fibromyalgia, urinary urgency , arthitis PT-OP-C Subjective Start: 01/28/20 15:22 Freq: Status: Active Protocol: Document 02/14/20 14:39 TP (Rec: 02/14/20 15:52 TP [id number]) OP-PT Subjective Patient Comments Patient Comments Pt reports pain in low back. Needs clarification on HEP. Appt with physician to review MRI on 02/17/2020. PT-OP-F Manual Assessment Start: 01/28/20 15:22 Freq: Status: Active Protocol: Document 01/28/20 15:23 [facility] (Rec: 01/28/20 16:03 [facility] [id number]) Manual Assessments Joint Mobility Assessment Joint Mobility Assessment L greater trochanter lower, R iliac crest higher PT-OP-G Mobility & Gait Start: 01/28/20 15:22 Freq: Status: Active Protocol: Document 01/28/20 15:23 [facility] (Rec: 01/28/20 16:03 [facility] [id number]) OP Gait Assessment Comments Gait Comments ER of pelvis w/push off and dec push off B, very stiff through UE PT-OP-J Posture/Palpation/Skin Start: 01/28/20 15:22 Freq: Status: Active Protocol: Document 01/28/20 15:23 [facility] (Rec: 01/28/20 16:03 [facility] [id number]) Posture Evaluation Yelena Postural Classification System Yelena Postural Classifications Anterior/Posterior Vertebral Compression Test 1 Elbow Flexion Test 2 Lumbar Protective Mechanism Left AP 1 Lumbar Protective Mechanism Right AP 0 Lumbar Protective Mechanism Left PA 1 Lumbar Protective Mechanism Right PA 1 Comments Posture Comments R pelvic shear, fwd rounded shoulder &head PT-OP-K Range of Motion Start: 01/28/20 15:22 Freq: Status: Active Protocol: Document 01/28/20 15:23 [facility] (Rec: 01/28/20 16:03 [facility] [id number]) Lumbar Spine Range of Motion Lumbar Spine Degrees Flexion 54 Extension 8 Rotation Left 23 Rotation Right 40 Lateral Flexion Left 24 Lateral Flexion Right 9 PT-OP-L Special Tests Start: 01/28/20 15:22 Freq: Status: Active Protocol: Document 01/28/20 15:23 [facility] (Rec: 01/28/20 16:03 [facility] [id number]) Special Tests Lumbar Spine Special Tests Straight Leg Raise Test Results R HS moderately tight; L slightly tigth Slump Test Results neg B PT-OP-M Strength Start: 01/28/20 15:22 Freq: Status: Active Protocol: Document 01/28/20 15:23 [facility] (Rec: 01/28/20 16:03 [facility] [id number]) Hip Strength Hip Manual Muscle Testing Right Flexion (L2) 3 Fair Extension (S1) 3 Fair Abduction 3+ Fair+ Adduction 3 Fair External Rotation 4 Good Internal Rotation 4 Good Left Flexion (L2) 3 Fair Extension (S1) 3 Fair Abduction 3+ Fair+ Adduction 4- Good- External Rotation 4 Good Internal Rotation 4 Good Knee Strength Knee Manual Muscle Testing Right Flexion (S2) 4 Good Extension (L3) 4+ Good+ Left Flexion (S2) 4 Good Extension (L3) 4+ Good+ Ankle/Foot Strength Ankle and Foot Manual Muscle Testing Right Dorsiflexion (L4) 5 Normal Plantarflexion (S1) 5 Normal Inversion 5 Normal Eversion (S1) 4+ Good+ Left Dorsiflexion (L4) 5 Normal Plantarflexion (S1) 4+ Good+ Inversion 4 Good Eversion (S1) 4 Good Comments seated PF testing B PT-OP-Q Treatments Start: 01/28/20 15:22 Freq: Status: Active Protocol: Document 02/14/20 14:39 TP (Rec: 02/14/20 15:52 TP [id number]) Therapeutic Exercises Supine Exercises log roll Supine Exercise Name log roll, supine<>sit Side left Reps/Minutes 2x Comments cues for keeping shoulders/ hips/knees aligned supine march Side bilateral Reps/Minutes 10x Comments cues for TA facilitation to stabilize pelvis pelvic realignment Supine Exercise Name adduction and HS isometric, SL pelvic lift Side bilateral Reps/Minutes 3 sec x5 HS Supine Exercise Name stretch Side bilateral Reps/Minutes 30 sec Pelvic tilt Supine Exercise Name posterior pelvic tilt Reps/Minutes 10 Comments cues for breathing and moving through hip rather than pushing through legs Standing Exercises mini squat Standing Exercise Name mini squats Equipment Used YTB, table height Reps/Minutes 10reps x 3sets Comments cues for glut fac and hip hinge sit to stand Standing Exercise Name straight back, hands on lap hip hinge Equipment Used 20 table height, small ball Reps/Minutes x5 Comments ball between knees, cued knee alignment with knee with toes, glut facil. PT-OP-T Assessment and Plan Start: 01/28/20 15:22 Freq: Status: Active Protocol: Document 02/14/20 14:39 TP (Rec: 02/14/20 15:52 TP [id number]) Physical Therapy Assessment Goals Three Impairment strength Short Term Goal (STG) Pt will be indep with HEP. STG Duration 02/28/20 Assistant Manager Quality Management Goal (LTG) Pt will have at least 4+/5 LE strength and 3/5 LPM to show improved postural stability in order to allow pt to do her typical activities without pain. LTG Duration 03/30/20 Two Impairment Sleep Short Term Goal (STG) Pt will show understanding of good mechanics for sleeping position to dec pain. STG Duration 02/28/20 Alf Goal (LTG) Pt will report beinga ble to sleep trhough the night. LTG Duration 03/30/20 One Impairment walking Short Term Goal (STG) Pt will report being able to go for 1/4 mile walk with no more than 4/10 pain. STG Duration 02/28/20 Alf Goal (LTG) Pt will report being able to go for walks mult times a week without pain inc greater than 2/10. LTG Duration 03/30/20 Assessment Summary Assessment Reviewed HEP with good demonstration from pt. Cues for improved LE alignment during all exercises to engage glutes, as hip adductors are much stronger than abductors. Pelvic stability weak, improvement with verbal/ tactile cues for TA facilitation during supine march. Sit to stand improving with duration, with focus on mini squat initially for technique with YTB proximal to knees for glute facilitation. Quality of sit<>stand improved, with ability to perform at various table heights (24, 20, 18) while maintaining better alignment in BLE with hip hinge. Pt moved from supine to sit with pain during tx. Education for use of log roll for bed mobility. Pt demonstration of log roll L x2 with verbal and tactile cues. Pt denied back pain at end of tx, though gait is antalgic. Physical Therapy Plan Frequency and Duration Frequency of Treatment 2x/Week Duration of Treatment 2 months Plan of Care Start Date 01/28/20 Plan of Care End Date 03/30/20 Therapeutic Interventions Therapeutic Interventions Aquatic Therapy,Balance Training,Gait Training,Home Exercise Program,Joint Mobilizations,Manual Therapy, Neuromuscular Re-education, Patient/Caregiver Education, Self-Care/Home Management,Soft Tissue Mobilization,Taping, Therapeutic Activities, Therapeutic Exercises Modalities Cold Pack/Ice Massage,Electric Stimulation,Hot Packs, Traction- Mechanical, Ultrasound Next Visit Focus/Plan Next Note Type Treatment Note Next Visit Plan Review MRI results from physician visit 02/17/20. Assess response to last tx. Review supine core, with focus on TA fac for pelvic stabilization. Hip strengthening with emphasis on hip abd. Assessment of posture during gait. Review self-massage techniques.
--- NOTE | 2020-02-18 11:24 | PT.OTN ---
Current Diagnoses Other forms of scoliosis, lumbosacral region (02/18/20) Trochanteric bursitis, right hip (02/18/20) Difficulty in walking, not elsewhere classified (02/18/20) Abnormal posture (02/18/20) Weakness (02/18/20) Physical Therapy Treatment Note PT-OP-A Visit Information Start: 01/28/20 15:22 Freq: Status: Active Protocol: Document 02/18/20 10:34 SP (Rec: 02/18/20 11:35 SP [id number]) Out-Patient Physical Therapy Visit Information Visit Information Visit Type Treatment Note Visit Start Time 10:34 Visit Stop Time 11:24 Total Visit Minutes 50 Visit Number 7 Number of SURVEILLANCE SPECIALIST Visits 3 PT-OP-B Current Condition Start: 01/28/20 15:22 Freq: Status: Active Protocol: Document 01/28/20 15:23 [facility] (Rec: 01/28/20 16:03 [facility] [id number]) Current Condition History of Current Condition Onset Date 6-8 months Current Complaints LBP, R hip & leg History of Current Condition Pt had pain that started on L side hipthen started to get better but then went over to R side. Pt had a fall about a year ago when going up the stairs and caught the toe of the shoe ended up falling against the stairs. Does not remember pain after that fall but unsure if this may be related. Pt reports she gets sharp pains still in L hip. Most of her pain in in R hip and sleeping is the worst time . Pt reports her back has just sarted hurting especially when getting out of chair. Pt used to go for walks but cannot anymore d/t pain. Pt reports she can only go about 1 block before pain starts. Pt reports buzzing in L foot in the arch area that has been going on for about 3-4 months. Most of her pain happens if she is laying especailly laying on her sides. Pt has urinary urgency but learned how to manage it a bit. 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; urinary urgency PT-did not coem for very long before clinic closure Treatment Goals Patient/Caregiver Goals be able to sleep at night, be able to go for walks, pain go away Personal Factors Other Personal Factors That May Effect hysterectomy about 15 yrs ago, Therapy/Recovery fibromyalgia, urinary urgency , arthitis PT-OP-C Subjective Start: 01/28/20 15:22 Freq: Status: Active Protocol: Document 02/18/20 10:34 SP (Rec: 02/18/20 11:35 SP [id number]) OP-PT Subjective Patient Comments Patient Comments Pt stated back is ok, getting up is difficult, pain walking over R hip, neck, thumbs and back bothers her sit to standing, getting into car. Saw Dr Hoyos in [place] yesterday and recommended injections. She said they discussed MRI findings with no concerns. PT-OP-F Manual Assessment Start: 01/28/20 15:22 Freq: Status: Active Protocol: Document 01/28/20 15:23 [facility] (Rec: 01/28/20 16:03 [facility] [id number]) Manual Assessments Joint Mobility Assessment Joint Mobility Assessment L greater trochanter lower, R iliac crest higher PT-OP-G Mobility & Gait Start: 01/28/20 15:22 Freq: Status: Active Protocol: Document 01/28/20 15:23 [facility] (Rec: 01/28/20 16:03 [facility] [id number]) OP Gait Assessment Comments Gait Comments ER of pelvis w/push off and dec push off B, very stiff through UE PT-OP-J Posture/Palpation/Skin Start: 01/28/20 15:22 Freq: Status: Active Protocol: Document 01/28/20 15:23 [facility] (Rec: 01/28/20 16:03 [facility] [id number]) Posture Evaluation [facility] Postural Classification System Yelena Postural Classifications Anterior/Posterior Vertebral Compression Test 1 Elbow Flexion Test 2 Lumbar Protective Mechanism Left AP 1 Lumbar Protective Mechanism Right AP 0 Lumbar Protective Mechanism Left PA 1 Lumbar Protective Mechanism Right PA 1 Comments Posture Comments R pelvic shear, fwd rounded shoulder &head PT-OP-K Range of Motion Start: 01/28/20 15:22 Freq: Status: Active Protocol: Document 01/28/20 15:23 [facility] (Rec: 01/28/20 16:03 [facility] [id number]) Lumbar Spine Range of Motion Lumbar Spine Degrees Flexion 54 Extension 8 Rotation Left 23 Rotation Right 40 Lateral Flexion Left 24 Lateral Flexion Right 9 PT-OP-L Special Tests Start: 01/28/20 15:22 Freq: Status: Active Protocol: Document 01/28/20 15:23 [facility] (Rec: 01/28/20 16:03 [facility] [id number]) Special Tests Lumbar Spine Special Tests Straight Leg Raise Test Results R HS moderately tight; L slightly tigth Slump Test Results neg B PT-OP-M Strength Start: 01/28/20 15:22 Freq: Status: Active Protocol: Document 01/28/20 15:23 [facility] (Rec: 01/28/20 16:03 [facility] [id number]) Hip Strength Hip Manual Muscle Testing Right Flexion (L2) 3 Fair Extension (S1) 3 Fair Abduction 3+ Fair+ Adduction 3 Fair External Rotation 4 Good Internal Rotation 4 Good Left Flexion (L2) 3 Fair Extension (S1) 3 Fair Abduction 3+ Fair+ Adduction 4- Good- External Rotation 4 Good Internal Rotation 4 Good Knee Strength Knee Manual Muscle Testing Right Flexion (S2) 4 Good Extension (L3) 4+ Good+ Left Flexion (S2) 4 Good Extension (L3) 4+ Good+ Ankle/Foot Strength Ankle and Foot Manual Muscle Testing Right Dorsiflexion (L4) 5 Normal Plantarflexion (S1) 5 Normal Inversion 5 Normal Eversion (S1) 4+ Good+ Left Dorsiflexion (L4) 5 Normal Plantarflexion (S1) 4+ Good+ Inversion 4 Good Eversion (S1) 4 Good Comments seated PF testing B PT-OP-Q Treatments Start: 01/28/20 15:22 Freq: Status: Active Protocol: Document 02/18/20 10:34 SP (Rec: 02/18/20 11:35 SP [id number]) Therapeutic Exercises Supine Exercises log roll Supine Exercise Name log roll, supine<>sit Side left Reps/Minutes 2x Comments cues for keeping shoulders/ hips/knees aligned supine march Supine Exercise Name sequencial march Side bilateral Reps/Minutes 10x Comments cues for TA facilitation to stabilize pelvis TA Supine Exercise Name 1. BKFO (no complete today) 2. march Side bilateral Reps/Minutes 15ea Comments focus on TA Standing Exercises step up back down Standing Exercise Name alternate Side bilateral Equipment Used R rail Reps/Minutes 5 lead R, 5 lead left (same up /down) Comments cued knee with/ behind toe alignment upright posture sit to stand Standing Exercise Name amrs across chest Equipment Used 18 table height Reps/Minutes x5 Comments cued knee alignment with knee with toes, glut facil. Therapeutic Activity Therapeutic Activity log roll Reps/Minutes x2 Comments cued knees bent and roll to L side then use BUE to assist SL to sitting . car transfer Reps/Minutes 5 Comments step back, sit onto seat, lift B legs up and turng trunk and BLE together into car facing steering wheel with support LUE on seat and or RUE on steering wheel and reverse exit. Manual Therapy Treatment Soft Tissue Mobilization glutes Body Location B glut and pirformis Mobilization Type Cross-Friction,Myofascial Release,Sustained Pressure Intensity/Depth Moderate Body Position Sidelying Comments manual: cross friction then pin with small range hip ER PT-OP-T Assessment and Plan Start: 01/28/20 15:22 Freq: Status: Active Protocol: Document 02/18/20 10:34 SP (Rec: 02/18/20 11:35 SP [id number]) Physical Therapy Assessment Goals Three Impairment strength Short Term Goal (STG) Pt will be indep with HEP. STG Duration 02/28/20 Electric Blasting Cap Assembler Goal (LTG) Pt will have at least 4+/5 LE strength and 3/5 LPM to show improved postural stability in order to allow pt to do her typical activities without pain. LTG Duration 03/30/20 Two Impairment Sleep Short Term Goal (STG) Pt will show understanding of good mechanics for sleeping position to dec pain. STG Duration 02/28/20 Electric Blasting Cap Assembler Goal (LTG) Pt will report beinga ble to sleep trhough the night. LTG Duration 03/30/20 One Impairment walking Short Term Goal (STG) Pt will report being able to go for 1/4 mile walk with no more than 4/10 pain. STG Duration 02/28/20 Electric Blasting Cap Assembler Goal (LTG) Pt will report being able to go for walks mult times a week without pain inc greater than 2/10. LTG Duration 03/30/20 Assessment Summary Assessment HEP review, increased core march to sequencing and SKFO with good TA facilitation. Continued education on trunk alignment with side lying, log roll and added getting in/out car with no twisting, improvement post education. Pt requires cuing for abductor facilitation during sit to stand and added step ups today for self awareness. Pt denied any pain end of tx. Physical Therapy Plan Frequency and Duration Frequency of Treatment 2x/Week Duration of Treatment 2 months Plan of Care Start Date 01/28/20 Plan of Care End Date 03/30/20 Therapeutic Interventions Therapeutic Interventions Aquatic Therapy,Balance Training,Gait Training,Home Exercise Program,Joint Mobilizations,Manual Therapy, Neuromuscular Re-education, Patient/Caregiver Education, Self-Care/Home Management,Soft Tissue Mobilization,Taping, Therapeutic Activities, Therapeutic Exercises Modalities Cold Pack/Ice Massage,Electric Stimulation,Hot Packs, Traction- Mechanical, Ultrasound Next Visit Focus/Plan Next Note Type Treatment Note Next Visit Plan Assess response to last tx. Review supine sequencial core march and SKFO with focus on TA fac for pelvic stabilization, step ups knee alignment with abd facilitation, proper trunk alignment with log roll, getting in/out car and . Continue Hip strengthening with emphasis on hip abd. Assessment of posture during gait. Review self-massage techniques ball on wall.
--- NOTE | 2020-02-20 15:17 | PT.OTN ---
Current Diagnoses Other forms of scoliosis, lumbosacral region (02/20/20) Trochanteric bursitis, right hip (02/20/20) Difficulty in walking, not elsewhere classified (02/20/20) Abnormal posture (02/20/20) Weakness (02/20/20) Physical Therapy Treatment Note PT-OP-A Visit Information Start: 01/28/20 15:22 Freq: Status: Active Protocol: Document 02/20/20 14:37 [facility] (Rec: 02/20/20 15:17 [facility] [id number]) Out-Patient Physical Therapy Visit Information Visit Information Visit Type Treatment Note Visit Start Time 13:48 Visit Stop Time 14:27 Total Visit Minutes 39 Visit Number 8 Number of CLAMSHELL OPERATOR Visits 0 PT-OP-B Current Condition Start: 01/28/20 15:22 Freq: Status: Active Protocol: Document 01/28/20 15:23 [facility] (Rec: 01/28/20 16:03 [facility] [id number]) Current Condition History of Current Condition Onset Date 6-8 months Current Complaints LBP, R hip & leg History of Current Condition Pt had pain that started on L side hipthen started to get better but then went over to R side. Pt had a fall about a year ago when going up the stairs and caught the toe of the shoe ended up falling against the stairs. Does not remember pain after that fall but unsure if this may be related. Pt reports she gets sharp pains still in L hip. Most of her pain in in R hip and sleeping is the worst time . Pt reports her back has just sarted hurting especially when getting out of chair. Pt used to go for walks but cannot anymore d/t pain. Pt reports she can only go about 1 block before pain starts. Pt reports buzzing in L foot in the arch area that has been going on for about 3-4 months. Most of her pain happens if she is laying especailly laying on her sides. Pt has urinary urgency but learned how to manage it a bit. 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; urinary urgency PT-did not coem for very long before clinic closure Treatment Goals Patient/Caregiver Goals be able to sleep at night, be able to go for walks, pain go away Personal Factors Other Personal Factors That May Effect hysterectomy about 15 yrs ago, Therapy/Recovery fibromyalgia, urinary urgency , arthitis PT-OP-C Subjective Start: 01/28/20 15:22 Freq: Status: Active Protocol: Document 02/20/20 14:37 [facility] (Rec: 02/20/20 15:17 [facility] [id number]) OP-PT Subjective Patient Comments Patient Comments Pt reports no questions with exercises. All going okay PT-OP-F Manual Assessment Start: 01/28/20 15:22 Freq: Status: Active Protocol: Document 01/28/20 15:23 [facility] (Rec: 01/28/20 16:03 [facility] [id number]) Manual Assessments Joint Mobility Assessment Joint Mobility Assessment L greater trochanter lower, R iliac crest higher PT-OP-G Mobility & Gait Start: 01/28/20 15:22 Freq: Status: Active Protocol: Document 01/28/20 15:23 [facility] (Rec: 01/28/20 16:03 [facility] [id number]) OP Gait Assessment Comments Gait Comments ER of pelvis w/push off and dec push off B, very stiff through UE PT-OP-J Posture/Palpation/Skin Start: 01/28/20 15:22 Freq: Status: Active Protocol: Document 01/28/20 15:23 [facility] (Rec: 01/28/20 16:03 [facility] [id number]) Posture Evaluation Yelena Postural Classification System Yelena Postural Classifications Anterior/Posterior Vertebral Compression Test 1 Elbow Flexion Test 2 Lumbar Protective Mechanism Left AP 1 Lumbar Protective Mechanism Right AP 0 Lumbar Protective Mechanism Left PA 1 Lumbar Protective Mechanism Right PA 1 Comments Posture Comments R pelvic shear, fwd rounded shoulder &head PT-OP-K Range of Motion Start: 01/28/20 15:22 Freq: Status: Active Protocol: Document 01/28/20 15:23 [facility] (Rec: 01/28/20 16:03 [facility] [id number]) Lumbar Spine Range of Motion Lumbar Spine Degrees Flexion 54 Extension 8 Rotation Left 23 Rotation Right 40 Lateral Flexion Left 24 Lateral Flexion Right 9 PT-OP-L Special Tests Start: 01/28/20 15:22 Freq: Status: Active Protocol: Document 01/28/20 15:23 [facility] (Rec: 01/28/20 16:03 [facility] [id number]) Special Tests Lumbar Spine Special Tests Straight Leg Raise Test Results R HS moderately tight; L slightly tigth Slump Test Results neg B PT-OP-M Strength Start: 01/28/20 15:22 Freq: Status: Active Protocol: Document 01/28/20 15:23 [facility] (Rec: 01/28/20 16:03 [facility] [id number]) Hip Strength Hip Manual Muscle Testing Right Flexion (L2) 3 Fair Extension (S1) 3 Fair Abduction 3+ Fair+ Adduction 3 Fair External Rotation 4 Good Internal Rotation 4 Good Left Flexion (L2) 3 Fair Extension (S1) 3 Fair Abduction 3+ Fair+ Adduction 4- Good- External Rotation 4 Good Internal Rotation 4 Good Knee Strength Knee Manual Muscle Testing Right Flexion (S2) 4 Good Extension (L3) 4+ Good+ Left Flexion (S2) 4 Good Extension (L3) 4+ Good+ Ankle/Foot Strength Ankle and Foot Manual Muscle Testing Right Dorsiflexion (L4) 5 Normal Plantarflexion (S1) 5 Normal Inversion 5 Normal Eversion (S1) 4+ Good+ Left Dorsiflexion (L4) 5 Normal Plantarflexion (S1) 4+ Good+ Inversion 4 Good Eversion (S1) 4 Good Comments seated PF testing B PT-OP-Q Treatments Start: 01/28/20 15:22 Freq: Status: Active Protocol: Document 02/20/20 14:37 [facility] (Rec: 02/20/20 15:17 [facility] [id number]) Therapeutic Exercises Sidelying Exercises ER Side left Reps/Minutes 15 hip abd Side left Reps/Minutes 10 Standing Exercises sidestep Side bilateral Equipment Used lvl 1 Reps/Minutes 15ft Gait Training Gait Activity wt shifts Description in mirror w/focus on fwd movement vs side Manual Therapy Treatment Soft Tissue Mobilization ITB Body Location L Mobilization Type Rolling Intensity/Depth Moderate Body Position Supine Comments w/ER/IR glutes Body Location B glut and pirformis Mobilization Type Cross-Friction,Myofascial Release,Sustained Pressure Intensity/Depth Moderate Body Position Sidelying Comments manual: cross friction then pin with small range hip ER Neuro Re-Education Treatment Other Activities PNF Details ant elevaiton/post dep Comments 1.rhythmic iinitiaon L 2. sustained holds L PT-OP-T Assessment and Plan Start: 01/28/20 15:22 Freq: Status: Active Protocol: Document 02/20/20 14:37 [facility] (Rec: 02/20/20 15:17 [facility] [id number]) Physical Therapy Assessment Goals Three Impairment strength Short Term Goal (STG) Pt will be indep with HEP. STG Duration 02/28/20 Prison Goal (LTG) Pt will have at least 4+/5 LE strength and 3/5 LPM to show improved postural stability in order to allow pt to do her typical activities without pain. LTG Duration 03/30/20 Two Impairment Sleep Short Term Goal (STG) Pt will show understanding of good mechanics for sleeping position to dec pain. STG Duration 02/28/20 Prison Goal (LTG) Pt will report beinga ble to sleep trhough the night. LTG Duration 03/30/20 One Impairment walking Short Term Goal (STG) Pt will report being able to go for 1/4 mile walk with no more than 4/10 pain. STG Duration 02/28/20 Cage Supervisor Goal (LTG) Pt will report being able to go for walks mult times a week without pain inc greater than 2/10. LTG Duration 03/30/20 Assessment Summary Assessment Improved mostion for posterior depresion after neuro re edu. Pt had difficulty with initiating mm for post depression motion. Difficult to get glutes to engage. Physical Therapy Plan Frequency and Duration Frequency of Treatment 2x/Week Duration of Treatment 2 months Plan of Care Start Date 01/28/20 Plan of Care End Date 03/30/20 Next Visit Focus/Plan Next Note Type Treatment Note Next Visit Plan cont to work on core and hip strengthening
--- NOTE | 2020-02-24 16:08 | PT.OTN ---
Current Diagnoses Other forms of scoliosis, lumbosacral region (02/24/20) Trochanteric bursitis, right hip (02/24/20) Difficulty in walking, not elsewhere classified (02/24/20) Abnormal posture (02/24/20) Weakness (02/24/20) Physical Therapy Treatment Note PT-OP-A Visit Information Start: 01/28/20 15:22 Freq: Status: Active Protocol: Document 02/24/20 14:32 [facility] (Rec: 02/24/20 16:08 [facility] [id number]) Out-Patient Physical Therapy Visit Information Visit Information Visit Type Treatment Note Visit Start Time 14:32 Visit Stop Time 15:13 Total Visit Minutes 41 Visit Number 9 Number of OBIEE REPORT DEVELOPER Visits 0 PT-OP-B Current Condition Start: 01/28/20 15:22 Freq: Status: Active Protocol: Document 01/28/20 15:23 [facility] (Rec: 01/28/20 16:03 [facility] [id number]) Current Condition History of Current Condition Onset Date 6-8 months Current Complaints LBP, R hip & leg History of Current Condition Pt had pain that started on L side hipthen started to get better but then went over to R side. Pt had a fall about a year ago when going up the stairs and caught the toe of the shoe ended up falling against the stairs. Does not remember pain after that fall but unsure if this may be related. Pt reports she gets sharp pains still in L hip. Most of her pain in in R hip and sleeping is the worst time . Pt reports her back has just sarted hurting especially when getting out of chair. Pt used to go for walks but cannot anymore d/t pain. Pt reports she can only go about 1 block before pain starts. Pt reports buzzing in L foot in the arch area that has been going on for about 3-4 months. Most of her pain happens if she is laying especailly laying on her sides. Pt has urinary urgency but learned how to manage it a bit. 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; urinary urgency PT-did not coem for very long before clinic closure Treatment Goals Patient/Caregiver Goals be able to sleep at night, be able to go for walks, pain go away Personal Factors Other Personal Factors That May Effect hysterectomy about 15 yrs ago, Therapy/Recovery fibromyalgia, urinary urgency , arthitis PT-OP-C Subjective Start: 01/28/20 15:22 Freq: Status: Active Protocol: Document 02/24/20 14:32 [facility] (Rec: 02/24/20 16:08 [facility] [id number]) OP-PT Subjective Patient Comments Patient Comments Pt reports back bothers her with some movements but not all the time PT-OP-F Manual Assessment Start: 01/28/20 15:22 Freq: Status: Active Protocol: Document 01/28/20 15:23 [facility] (Rec: 01/28/20 16:03 [facility] [id number]) Manual Assessments Joint Mobility Assessment Joint Mobility Assessment L greater trochanter lower, R iliac crest higher PT-OP-G Mobility & Gait Start: 01/28/20 15:22 Freq: Status: Active Protocol: Document 01/28/20 15:23 [facility] (Rec: 01/28/20 16:03 [facility] [id number]) OP Gait Assessment Comments Gait Comments ER of pelvis w/push off and dec push off B, very stiff through UE PT-OP-J Posture/Palpation/Skin Start: 01/28/20 15:22 Freq: Status: Active Protocol: Document 01/28/20 15:23 [facility] (Rec: 01/28/20 16:03 [facility] [id number]) Posture Evaluation Yelena Postural Classification System Yelena Postural Classifications Anterior/Posterior Vertebral Compression Test 1 Elbow Flexion Test 2 Lumbar Protective Mechanism Left AP 1 Lumbar Protective Mechanism Right AP 0 Lumbar Protective Mechanism Left PA 1 Lumbar Protective Mechanism Right PA 1 Comments Posture Comments R pelvic shear, fwd rounded shoulder &head PT-OP-K Range of Motion Start: 01/28/20 15:22 Freq: Status: Active Protocol: Document 01/28/20 15:23 [facility] (Rec: 01/28/20 16:03 [facility] [id number]) Lumbar Spine Range of Motion Lumbar Spine Degrees Flexion 54 Extension 8 Rotation Left 23 Rotation Right 40 Lateral Flexion Left 24 Lateral Flexion Right 9 PT-OP-L Special Tests Start: 01/28/20 15:22 Freq: Status: Active Protocol: Document 01/28/20 15:23 [facility] (Rec: 01/28/20 16:03 [facility] [id number]) Special Tests Lumbar Spine Special Tests Straight Leg Raise Test Results R HS moderately tight; L slightly tigth Slump Test Results neg B PT-OP-M Strength Start: 01/28/20 15:22 Freq: Status: Active Protocol: Document 01/28/20 15:23 [facility] (Rec: 01/28/20 16:03 [facility] [id number]) Hip Strength Hip Manual Muscle Testing Right Flexion (L2) 3 Fair Extension (S1) 3 Fair Abduction 3+ Fair+ Adduction 3 Fair External Rotation 4 Good Internal Rotation 4 Good Left Flexion (L2) 3 Fair Extension (S1) 3 Fair Abduction 3+ Fair+ Adduction 4- Good- External Rotation 4 Good Internal Rotation 4 Good Knee Strength Knee Manual Muscle Testing Right Flexion (S2) 4 Good Extension (L3) 4+ Good+ Left Flexion (S2) 4 Good Extension (L3) 4+ Good+ Ankle/Foot Strength Ankle and Foot Manual Muscle Testing Right Dorsiflexion (L4) 5 Normal Plantarflexion (S1) 5 Normal Inversion 5 Normal Eversion (S1) 4+ Good+ Left Dorsiflexion (L4) 5 Normal Plantarflexion (S1) 4+ Good+ Inversion 4 Good Eversion (S1) 4 Good Comments seated PF testing B PT-OP-Q Treatments Start: 01/28/20 15:22 Freq: Status: Active Protocol: Document 02/24/20 14:32 [facility] (Rec: 02/24/20 16:08 [facility] [id number]) Gym Equipment Shuttle Balance red clips Comments fwd & Side: WBOS & NBOS Therapeutic Exercises Supine Exercises TA Supine Exercise Name 1. BKFO 2. march Side bilateral Reps/Minutes 15ea Comments focus on TA Standing Exercises sidestep Side bilateral Equipment Used lvl 1 Reps/Minutes 20ft step up back down Standing Exercise Name alternate Side bilateral Equipment Used no rail Reps/Minutes 8 ea Comments upright posture Manual Therapy Treatment Soft Tissue Mobilization iliacus Body Location R Mobilization Type Rolling,Sustained Pressure Body Position Supine Comments w/ER/IR ITB Body Location R TFL & ITB Mobilization Type Rolling Intensity/Depth Moderate Body Position Supine Comments w/ER/IR Joint Mobilizations hip Joint r Direction on axis IR, inf glide & distraction PT-OP-T Assessment and Plan Start: 01/28/20 15:22 Freq: Status: Active Protocol: Document 02/24/20 14:32 [facility] (Rec: 02/24/20 16:08 [facility] [id number]) Physical Therapy Assessment Assessment Summary Assessment Pt required cueing throughout standing exercises for posture & core activiation. In supine , pt requied use of her own UE to pelvis to help monitor keeping pelvis neutral. Balance challenged hip and core mm. Physical Therapy Plan Frequency and Duration Frequency of Treatment 2x/Week Duration of Treatment 2 months Plan of Care Start Date 01/28/20 Plan of Care End Date 03/30/20 Next Visit Focus/Plan Next Note Type Progress Note Next Visit Plan cont to work on core and hip strengthening
--- NOTE | 2020-03-19 08:53 | PT.OPDS ---
Current Diagnoses Other forms of scoliosis, lumbosacral region (02/24/20) Trochanteric bursitis, right hip (02/24/20) Difficulty in walking, not elsewhere classified (02/24/20) Abnormal posture (02/24/20) Weakness (02/24/20) Visit Care Team Role Provider Type Specialty: Address: Phone: Fax: Email: Israel Lucero MD Primary Care Provider Non-Staff Specialty: Medical Address: [address] [place] [address], [id number] Email: Attending Provider Referring Provider Specialty: Address: Phone: Fax: Email: Visit Number Visit Number 9 Discharge Summary PT-OP-B Current Condition Start: 01/28/20 15:22 Freq: Status: Active Protocol: Document 01/28/20 15:23 [facility] (Rec: 01/28/20 16:03 [facility] [id number]) Current Condition History of Current Condition Onset Date 6-8 months Current Complaints LBP, R hip & leg History of Current Condition Pt had pain that started on L side hipthen started to get better but then went over to R side. Pt had a fall about a year ago when going up the stairs and caught the toe of the shoe ended up falling against the stairs. Does not remember pain after that fall but unsure if this may be related. Pt reports she gets sharp pains still in L hip. Most of her pain in in R hip and sleeping is the worst time . Pt reports her back has just sarted hurting especially when getting out of chair. Pt used to go for walks but cannot anymore d/t pain. Pt reports she can only go about 1 block before pain starts. Pt reports buzzing in L foot in the arch area that has been going on for about 3-4 months. Most of her pain happens if she is laying especailly laying on her sides. Pt has urinary urgency but learned how to manage it a bit. 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; urinary urgency PT-did not coem for very long before clinic closure Treatment Goals Patient/Caregiver Goals be able to sleep at night, be able to go for walks, pain go away Personal Factors Other Personal Factors That May Effect hysterectomy about 15 yrs ago, Therapy/Recovery fibromyalgia, urinary urgency , arthitis PT-OP-C Subjective Start: 01/28/20 15:22 Freq: Status: Active Protocol: Document 02/24/20 14:32 [facility] (Rec: 02/24/20 16:08 [facility] [id number]) OP-PT Subjective Patient Comments Patient Comments Pt reports back bothers her with some movements but not all the time PT-OP-F Manual Assessment Start: 01/28/20 15:22 Freq: Status: Active Protocol: Document 01/28/20 15:23 [facility] (Rec: 01/28/20 16:03 [facility] [id number]) Manual Assessments Joint Mobility Assessment Joint Mobility Assessment L greater trochanter lower, R iliac crest higher PT-OP-G Mobility & Gait Start: 01/28/20 15:22 Freq: Status: Active Protocol: Document 01/28/20 15:23 [facility] (Rec: 01/28/20 16:03 [facility] [id number]) OP Gait Assessment Comments Gait Comments ER of pelvis w/push off and dec push off B, very stiff through UE PT-OP-J Posture/Palpation/Skin Start: 01/28/20 15:22 Freq: Status: Active Protocol: Document 01/28/20 15:23 [facility] (Rec: 01/28/20 16:03 [facility] [id number]) Posture Evaluation Yelena Postural Classification System Yelena Postural Classifications Anterior/Posterior Vertebral Compression Test 1 Elbow Flexion Test 2 Lumbar Protective Mechanism Left AP 1 Lumbar Protective Mechanism Right AP 0 Lumbar Protective Mechanism Left PA 1 Lumbar Protective Mechanism Right PA 1 Comments Posture Comments R pelvic shear, fwd rounded shoulder &head PT-OP-K Range of Motion Start: 01/28/20 15:22 Freq: Status: Active Protocol: Document 01/28/20 15:23 [facility] (Rec: 01/28/20 16:03 [facility] [id number]) Lumbar Spine Range of Motion Lumbar Spine Degrees Flexion 54 Extension 8 Rotation Left 23 Rotation Right 40 Lateral Flexion Left 24 Lateral Flexion Right 9 PT-OP-L Special Tests Start: 01/28/20 15:22 Freq: Status: Active Protocol: Document 01/28/20 15:23 [facility] (Rec: 01/28/20 16:03 [facility] [id number]) Special Tests Lumbar Spine Special Tests Straight Leg Raise Test Results R HS moderately tight; L slightly tigth Slump Test Results neg B PT-OP-M Strength Start: 01/28/20 15:22 Freq: Status: Active Protocol: Document 01/28/20 15:23 [facility] (Rec: 01/28/20 16:03 [facility] [id number]) Hip Strength Hip Manual Muscle Testing Right Flexion (L2) 3 Fair Extension (S1) 3 Fair Abduction 3+ Fair+ Adduction 3 Fair External Rotation 4 Good Internal Rotation 4 Good Left Flexion (L2) 3 Fair Extension (S1) 3 Fair Abduction 3+ Fair+ Adduction 4- Good- External Rotation 4 Good Internal Rotation 4 Good Knee Strength Knee Manual Muscle Testing Right Flexion (S2) 4 Good Extension (L3) 4+ Good+ Left Flexion (S2) 4 Good Extension (L3) 4+ Good+ Ankle/Foot Strength Ankle and Foot Manual Muscle Testing Right Dorsiflexion (L4) 5 Normal Plantarflexion (S1) 5 Normal Inversion 5 Normal Eversion (S1) 4+ Good+ Left Dorsiflexion (L4) 5 Normal Plantarflexion (S1) 4+ Good+ Inversion 4 Good Eversion (S1) 4 Good Comments seated PF testing B PT-OP-T Assessment and Plan Start: 01/28/20 15:22 Freq: Status: Active Protocol: Document 03/19/20 08:52 [facility] (Rec: 03/19/20 08:53 [facility] [id number]) Physical Therapy Assessment Assessment Summary Assessment Pt called to cancel all appts d/t getting injection and ddid not feel improvement with PT. DC at this time. Physical Therapy Plan Discharge Physical Therapy Discharge Reasons No Longer Attending PT
== END 2020-03-20 08:02 ==
LOC: PHYS 14:30
PROVIDERS: PCP Internal Medicine
DX: M41.87 Other forms of scoliosis, lumbosacral region (principal); M70.61 Trochanteric bursitis, right hip; R53.1 Weakness; R29.3 Abnormal posture; R26.2 Difficulty in walking, not elsewhere classified
CPT/HCPCS: 97110; 97112; 97140; 97162; 97530

== ENCOUNTER → 2020-04-16 | Outpatient (CLI) | payer MEDICARE, OTHER, SELFPAY | PROVIDERS: PCP Internal Medicine; Referring Provider Internal Medicine; Visit Provider Internal Medicine | DX: Z23 Encounter for immunization (principal) | CPT/HCPCS: 90471; 90662 ==

== ENCOUNTER → 2020-04-20 13:37 | Outpatient (CLI) | payer MEDICARE, OTHER, SELFPAY ==
[2020-04-20 15:02] LABS: Appearance Urine UA Slightly Cloudy
[2020-04-20 15:04] LABS: Color Urine UA Orange
[2020-04-20 15:18] LABS: Bacteria Urine Many (>30); Culture Indicated Urine Specimen Cultured; RBC Urine 5-10/HPF (0-5/HPF); Squamous Epithelial Cell Urine 1-5 /HPF (0-5/HPF); WBC Urine 30-100/HPF (0-5/HPF)
== END ==
PROVIDERS: PCP Internal Medicine; Visit Provider Physician Assistant
DX: N30.01 Acute cystitis with hematuria (principal)
CPT/HCPCS: 81001; 87077; 87086; 87186

== ENCOUNTER → 2020-08-22 10:32 | Outpatient (CLI) | payer MEDICARE, OTHER, SELFPAY ==
[2020-08-22 12:38] LABS: COVID19 -Nasal RAPID Negative (Negative)
== END ==
PROVIDERS: PCP Family Medicine; Visit Provider Nurse Practitioner
DX: Z01.812 Encounter for preprocedural laboratory examination (principal); Z20.822 Contact with and (suspected) exposure to COVID-19
CPT/HCPCS: 87635; C9803

== ENCOUNTER 2020-08-25 06:24 | Day surgery (SDC) | payer MEDICARE, OTHER, SELFPAY ==
[2020-08-25 07:18] VITALS: BP 147/75; PULSE 60; RESP 13; TEMP 36.2; O2SAT 100; BMI 25.4
[2020-08-25] MEDS: PROPARACAINE 0.5% OPHTH SOL 2 DROPS EYE-OP (07:30)
[2020-08-25] MEDS: CATARACT EYE COMPOUND (10 DROPS/SYRINGE) 3 DROPS EYE-OP (07:30)
--- NOTE | 2020-08-25 07:37 | P.OP_ITS ---
Operative Date/Time/Diagnoses Pre-op diagnosis: Nuclear cataract right eye Procedure & Clinicians Procedure: Cataract Surgery Same procedure as scheduled: Yes Surgeon: Renny Villa Anesthesia Type: MAC +/- and Sedation Operative Notes Procedure in detail: Patient brought to the operating suite. Tetracaine drops placed in the right eye. Marking instrument was used to treva the vertical and horizontal meridians. Patient was prepped and draped in sterile manner. Wire lid speculum was placed in the eye. Marking instrument was used to treva the 5 degree meridian. Betadine drops were placed on the eye. This was irrigated. Lidocaine jelly was placed on the eye. A paracentesis port was created with a side-port blade. 0.1 mL 1% preservative free lidocaine was injected into the anterior chamber. The anterior chamber was deepened with viscoelastic. 2.6 mm keratome was used to create a temporal clear corneal incision. Cystotome and [place] forceps were used to create continuous tear capsulorrhexis. Balanced salt solution was used to hydro dissect the nucleus. The phacoemulsification handpiece was inserted and the nucleus was removed using the stop and chop technique. The irrigation aspiration handpiece was inserted and the remaining cortex was removed. Anterior chamber was deepened with viscoelastic. An Brand [id number] intraocular lens with a power of 20.5 was injected into the capsular bag. Irrigation aspiration handpiece was inserted and the remaining viscoelastic was removed. The lens was rotated to the 5 degree meridian. Incision was hydrated with balanced salt solution and found to be leak free with pressure with Weck- Angelita sponges. 0.1 mL Vigamox injected anterior chamber. 0.3 mL Kenalog 10 mg was injected subconjunctivally. Lid speculum was removed. The patient left the operating room in excellent condition. Complications: none Post-operative Condition: stable Disposition: same day surgery
--- NOTE | 2020-08-25 07:37 | PM.PREOP ---
Pre-operative Note Interval Note History & Physical reviewed/Exam performed by Physician: Yes Changes to H&P: No
[2020-08-25] MEDS: TRIAMCINOLONE 50 MG/5 ML VIAL INJ (07:53)
[2020-08-25] MEDS: MOXIFLOXACIN INJ 5 MG/ML VIAL EYE-OP (07:54)
[2020-08-25] MEDS: PHENYLEPHRINE/LIDOCAINE VIAL (OR) 0.2 ML EYE-OP (07:55)
[2020-08-25] MEDS: LIDOCAINE JELLY 2% 5 ML 1 APPLIC TOP (07:55)
[2020-08-25] MEDS: CHONDROIDTIN/SOD HYALURONATE 1.05 ML SYRINGE INTRAOCULA (07:55)
[2020-08-25] MEDS: BALANCED SALT IRRIG SOLN NO.2 500 ML, EPINEPHrine 1 MG IRR (07:56)
[2020-08-25] MEDS: TETRACAINE 0.5% OPHTH DROPS 4 ML 2 DROPS EYE-OP (07:56)
[2020-08-25 08:10] VITALS: BP 140/78; PULSE 66; RESP 16; TEMP 36.4; O2SAT 100
== END 2020-08-25 08:22 | disposition home or self-care (01) ==
PROVIDERS: PCP Family Medicine; Referring Provider Ophthalmology; Visit Provider Ophthalmology
PROC: (CPT 66984; principal; 2020-08-25 07:45)
DX: H25.11 Age-related nuclear cataract, right eye (principal); I10 Essential (primary) hypertension
CPT/HCPCS: 66984; J0171; J2250; J3010; J3301; V2787

== ENCOUNTER → 2020-09-05 09:19 | Outpatient (CLI) | payer MEDICARE, OTHER, SELFPAY ==
[2020-09-05 11:23] LABS: COVID19 -Nasal RAPID Negative (Negative)
== END ==
PROVIDERS: PCP Family Medicine; Visit Provider Nurse Practitioner Family
DX: Z20.822 Contact with and (suspected) exposure to COVID-19 (principal)
CPT/HCPCS: 87635; C9803

== ENCOUNTER 2020-09-08 06:25 | Day surgery (SDC) | payer MEDICARE, OTHER, SELFPAY ==
[2020-09-08] MEDS: PROPARACAINE 0.5% OPHTH SOL 2 DROPS EYE-OP (07:06)
[2020-09-08] MEDS: CATARACT EYE COMPOUND (10 DROPS/SYRINGE) 3 DROPS EYE-OP (07:07)
[2020-09-08 07:08] VITALS: BP 170/77; PULSE 67; RESP 17; TEMP 36.2; O2SAT 100; BMI 25.4
--- NOTE | 2020-09-08 07:35 | P.OP_ITS ---
Operative Date/Time/Diagnoses Pre-op diagnosis: Nuclear Cataract Left eye Post-op diagnosis: same Procedure & Clinicians Same procedure as scheduled: Yes Surgeon: Renny Villa Anesthesia Type: MAC +/- and Sedation Operative Notes Procedure in detail: Patient brought to the operating suite. Tetracaine drops placed in the left eye. Marking instrument was used to treva the vertical and horizontal merdiains. Patient was prepped and draped in sterile manner. Wire lid speculum was placed in the eye. Marking instrument was used to treva the 175 degree meridian. Betadine drops were placed on the eye. This was irrigated. Lidocaine jelly was placed on the eye. A paracentesis port was created with a side-port blade. 0.1 mL 1% preservative free lidocaine was injected into the anterior chamber. The anterior chamber was deepened with viscoelastic. 2.6 mm keratome was used to create a temporal clear corneal incision. Cystotome and Utrata forceps were used to create continuous tear capsulorrhexis. Balanced salt solution was used to hydro dissect the nucleus. The phacoemulsification handpiece was inserted and the nucleus was removed using the stop and chop t echnique. The irrigation aspiration handpiece was inserted and the remaining cortex was removed. Anterior chamber was deepened with viscoelastic. An Brand [id number] intraocular lens with a power of 21.0 was injected into the capsular bag. Irrigation aspiration handpiece was inserted and the remaining viscoelastic was removed. The lens was rotated to the 175 degree meridian. Incision was hydrated with balanced salt solution and found to be leak free with pressure with Weck- Nagelita sponges. 0.1 mL Vigamox injected anterior chamber. 0.3 mL Kenalog 10 mg was injected subconjunctivally. Lid speculum was removed. The patient left the operating room in excellent condition. Complications: none Post-operative Condition: stable Disposition: same day surgery
--- NOTE | 2020-09-08 07:35 | PM.PREOP ---
Pre-operative Note Interval Note History & Physical reviewed/Exam performed by Physician: Yes Changes to H&P: No
[2020-09-08] MEDS: TRIAMCINOLONE 50 MG/5 ML VIAL INJ (07:54)
[2020-09-08] MEDS: BALANCED SALT IRRIG SOLN NO.2 500 ML, EPINEPHrine 1 MG IRR (07:55)
[2020-09-08] MEDS: MOXIFLOXACIN INJ 5 MG/ML VIAL EYE-OP (07:55)
[2020-09-08] MEDS: PHENYLEPHRINE/LIDOCAINE VIAL (OR) 0.2 ML EYE-OP (07:55)
[2020-09-08] MEDS: CHONDROIDTIN/SOD HYALURONATE 1.05 ML SYRINGE INTRAOCULA (07:56)
[2020-09-08] MEDS: TETRACAINE 0.5% OPHTH DROPS 4 ML 2 DROPS EYE-OP (07:56)
[2020-09-08] MEDS: LIDOCAINE JELLY 2% 5 ML 1 APPLIC TOP (07:56)
[2020-09-08 08:12] VITALS: BP 160/80; PULSE 57; RESP 16; TEMP 36.4; O2SAT 99
== END 2020-09-08 08:23 | disposition home or self-care (01) ==
PROVIDERS: PCP Family Medicine; Referring Provider Family Medicine; Visit Provider Ophthalmology
PROC: (CPT 66984; principal; 2020-09-08 07:45)
DX: H25.12 Age-related nuclear cataract, left eye (principal); F41.9 Anxiety disorder, unspecified; F32.9 Major depressive disorder, single episode, unspecified; I10 Essential (primary) hypertension
CPT/HCPCS: 66984; J0171; J2250; J3010; J3301; V2787

== ENCOUNTER → 2021-01-04 08:16 | Outpatient (CLI) | payer MEDICARE, OTHER, SELFPAY ==
--- NOTE | 2021-01-04 | DI.MG.S_ITS ---
BILATERAL DIGITAL SCREENING MAMMOGRAM 3D/2D WITH CAD: 01/04/2021 CLINICAL: Routine screening. Family history of breast cancer. Comparison is made to exams dated: 01/02/2020 mammogram, 11/30/2018 mammogram, and 11/29/2017 mammogram - [facility]. The tissue of both breasts is heterogeneously dense. This may lower the sensitivity of mammography. Current study was also evaluated with a Computer Aided Detection (CAD) system. No significant masses, calcifications, or other findings are seen in either breast. There has been no significant interval change. IMPRESSION: NEGATIVE There is no mammographic evidence of malignancy. A 1 year screening mammogram is recommended. This exam was interpreted at Station ID: [id number]. NOTE: For mammograms, a report in lay terms will be sent to the patient. Approximately 15% of breast malignancies will not be visualized mammographically. In the management of a palpable breast mass, a negative mammogram must not discourage biopsy of a clinically suspicious lesion. Electronically Signed By: Dami ojeda/varun:01/04/2021 09:42:28 copy to: Shannen Anders letter sent: Normal Exam ACR BI-RADS Category 1: Negative 3341F
== END ==
PROVIDERS: PCP Family Medicine; Referring Provider Family Medicine; Visit Provider Family Medicine
DX: Z12.31 Encounter for screening mammogram for malignant neoplasm of breast (principal); Z80.3 Family history of malignant neoplasm of breast
CPT/HCPCS: 77063; 77067

== ENCOUNTER → 2021-04-13 09:31 | Outpatient (CLI) | payer MEDICARE, OTHER, SELFPAY ==
[2021-04-13 10:12] LABS: Alanine Aminotransferase 13 IU/L (<35); Albumin 3.9 g/dL (3.5-5.0); Albumin Globulin Ratio 1.6 (1.0-2.8); Alkaline Phosphatase 93 U/L (38-126); Aspartate Aminotransferase 21 IU/L (14-36); BUN Creatinine Ratio 17.2 (6-22); Bilirubin Total 0.4 mg/dL (0.2-1.3); Blood Urea Nitrogen 15 mg/dL (7-17); Calcium 9.2 mg/dL (8.4-10.2); Carbon Dioxide 31 mmol/L (22-32); Chloride 105 mmol/L (98-107); Cholesterol 219 mg/dL (140-199); Estimated Glomerular Filt Rate > 60.0 mL/min (>60); Globulin 2.4 g/dL (1.7-4.1); Glucose 109 mg/dL (80-110); HDL Cholesterol 83 mg/dL (40-60); HEMOLYSIS < 15 (0-50); LDL Cholesterol Calculated 122 mg/dL (<100); Potassium 4.2 mmol/L (3.4-5.1); Sodium 140 mmol/L (137-145); Total Protein 6.3 g/dL (6.3-8.2); Triglycerides 71 mg/dL (35-150)
[2021-04-13 11:12] LABS: Creatinine Urine Random 98.1 mg/dL
[2021-04-13 11:17] LABS: Microalbumin Urine Random < 0.6 mg/dL (0-1.6)
== END ==
PROVIDERS: PCP Family Medicine; Referring Provider Family Medicine; Visit Provider Family Medicine
DX: I10 Essential (primary) hypertension (principal)
CPT/HCPCS: 36415; 80053; 80061; 82043; 82570

== ENCOUNTER → 2021-08-10 11:47 | Outpatient (CLI) | payer MEDICARE, OTHER, SELFPAY ==
[2021-08-10 12:39] LABS: Erythrocyte Sedimentation Rate 4 MM/HR (0-20)
[2021-08-10 13:05] LABS: C-Reactive Protein Quant < 0.5 mg/dL (<1.0); Rheumatoid Factor < 8.6 IU/mL (<12.0)
[2021-08-12 18:27] LABS: ANA Screen, IFA Negative (.)
[2021-08-12 20:52] LABS: CCP Antibodies IgG/IgA 2 units (0-19)
== END ==
PROVIDERS: PCP Family Medicine; Referring Provider Family Medicine; Visit Provider Family Medicine
DX: M25.50 Pain in unspecified joint (principal)
CPT/HCPCS: 36415; 85651; 86038; 86140; 86200; 86430

== ENCOUNTER → 2021-11-23 15:15 | Outpatient (CLI) | payer MEDICARE, OTHER, SELFPAY ==
--- NOTE | 2021-11-23 15:19 | DI.RAD.S_ITS ---
PROCEDURE: XR KNEE RT 3V INDICATIONS: Right knee pain; swelling (R femur longer than left?) TECHNIQUE: 3 views of the knee were acquired. COMPARISON: None. FINDINGS: Bones: No fractures or dislocations. No suspicious bony lesions. Mild joint space narrowing of the medial patellar facet. There are subchondral cystic changes and sclerosis of the femoral condyle. Soft tissues: No joint effusion. No suspicious soft tissue calcifications. IMPRESSION: Mild degenerative changes. No acute abnormality. Dictated by: Antolin Scruggs M.D. on 11/23/2021 at 17:16 Approved by: Antolin Scruggs M.D. on 11/23/2021 at 17:17
--- NOTE | 2021-11-23 15:19 | DI.RAD.S_ITS ---
PROCEDURE: XR HIP W PEL IF DONE PARAM MIN 4V INDICATIONS: Chronic R hip pain R femur longer than left(?) TECHNIQUE: AP pelvis with lateral view(s) of the bilateral hip(s). COMPARISON: None. FINDINGS: Bones: No fractures or dislocations. Pelvic ring appears intact. No suspicious bony lesions. Mild periarticular osteophyte formation at the bilateral hip joints, indicating osteoarthritis. Soft tissues: The visualized bowel gas pattern is normal. No suspicious soft tissue calcifications. IMPRESSION: Bilateral hip osteoarthritis. No acute fracture. No osseous lesion. If symptoms and/or clinical suspicion for pathology persist, further assessment with repeat, or advanced imaging (e.g., CT, MRI, or bone scan) may be helpful for further assessment. Dictated by: Liz Contreras M.D. on 11/23/2021 at 15:49 Approved by: Liz Contreras M.D. on 11/23/2021 at 16:25
== END ==
PROVIDERS: PCP Family Medicine; Referring Provider Physician Assistant; Visit Provider Physician Assistant
DX: M25.551 Pain in right hip (principal); G89.29 Other chronic pain; M16.0 Bilateral primary osteoarthritis of hip; M25.561 Pain in right knee
CPT/HCPCS: 73522; 73562

== ENCOUNTER → 2021-12-16 18:24 | Outpatient (CLI) | payer MEDICARE, OTHER, SELFPAY ==
--- NOTE | 2021-12-16 18:28 | DI.RAD.S_ITS ---
PROCEDURE: XR CHEST 2V INDICATIONS: Cough TECHNIQUE: 2 views of the chest were acquired. COMPARISON: [facility], , CHEST 2 VIEW, 05/17/2014, 14:06. FINDINGS: Surgical changes and devices: None. Lungs and pleura: Lungs are clear. No pleural effusions or pneumothorax. Mediastinum: Mediastinal contours are normal. Heart size is normal. Bones and chest wall: No suspicious bony abnormalities. Soft tissues appear unremarkable. IMPRESSION: No acute cardiopulmonary pathology. Dictated by: Jacob Rubalcava M.D. on 12/16/2021 at 18:42 Approved by: Jacob Rubalcava M.D. on 12/16/2021 at 18:42
== END ==
PROVIDERS: PCP Family Medicine; Referring Provider Nurse Practitioner Family; Visit Provider Nurse Practitioner Family
DX: R05.9 Cough, unspecified (principal)
CPT/HCPCS: 71046

== ENCOUNTER → 2022-01-05 13:09 | Outpatient (CLI) | payer MEDICARE, OTHER, SELFPAY ==
--- NOTE | 2022-01-05 13:11 | DI.MG.S_ITS ---
BILATERAL DIGITAL SCREENING MAMMOGRAM 3D/2D WITH CAD: 01/05/2022 CLINICAL: Routine screening. Family history of breast cancer. Comparison is made to exams dated: 01/04/2021 mammogram, 01/02/2020 mammogram, and 11/30/2018 mammogram - [facility]. The tissue of both breasts is heterogeneously dense. This may lower the sensitivity of mammography. Current study was also evaluated with a Computer Aided Detection (CAD) system. No significant masses, calcifications, or other findings are seen in either breast. There has been no significant interval change. IMPRESSION: NEGATIVE There is no mammographic evidence of malignancy. A 1 year screening mammogram is recommended. This exam was interpreted at Station ID: [id number]. NOTE: For mammograms, a report in lay terms will be sent to the patient. Approximately 15% of breast malignancies will not be visualized mammographically. In the management of a palpable breast mass, a negative mammogram must not discourage biopsy of a clinically suspicious lesion. Electronically Signed By: Mathieu graham/varun:01/05/2022 15:04:23 copy to: Charline Steve M.D., [place], ph: [phone], fax: [phone] letter sent: Normal Exam ACR BI-RADS Category 1: Negative 3341F
== END ==
PROVIDERS: PCP Family Medicine; Referring Provider Obstetrics & Gynecology; Visit Provider Obstetrics & Gynecology
DX: Z12.31 Encounter for screening mammogram for malignant neoplasm of breast (principal); Z80.3 Family history of malignant neoplasm of breast
CPT/HCPCS: 77063; 77067

== ENCOUNTER → 2022-01-31 10:24 | Outpatient (CLI) | payer MEDICARE, OTHER, SELFPAY ==
[2022-01-31 11:57] LABS: COVID19 -Nasal RAPID Negative (Negative)
== END ==
PROVIDERS: PCP Family Medicine; Visit Provider Surgery
DX: Z20.822 Contact with and (suspected) exposure to COVID-19 (principal); Z01.812 Encounter for preprocedural laboratory examination
CPT/HCPCS: 87635; C9803

== ENCOUNTER 2022-02-01 12:27 | Day surgery (SDC) | payer MEDICARE, OTHER, SELFPAY ==
[2022-02-01] MEDS: LACTATED RINGERS 1,000 ML 200 ML IV (13:13)
[2022-02-01 13:14] VITALS: BP 151/70; PULSE 79; RESP 16; TEMP 36.7; O2SAT 100; BMI 25.0
--- NOTE | 2022-02-01 13:28 | SUR.PREOP ---
EKG done, NSR, states that she is feeling better than upon admit, but yet her normal
--- NOTE | 2022-02-01 13:29 | SUR.PREOP ---
Patient had some episodes of irregular heartrate, appeared to be AFIB on the monitor. Strips shown to Dr. Dumont, VVO given for 12 lead just prior to being ordered. Currently states that she is feeling a little better, has been cold, general nausea - all started with the prep.
--- NOTE | 2022-02-01 14:03 | P.HP_ITS ---
History of Present Illness History of Present Illness Date Patient Seen: 02/01/22 Time Patient Seen: 14:03 Chief complaint: Colonoscopy Narrative: The patient presents for colorectal screening. Previous colonoscopy 10 years ago normal No personal or family history of colon cancer. On further history denies any recent gastrointestinal symptoms. No nausea, vomiting, abdominal pain, loss of appetite, unexplained weight loss, change in bowel habits, diarrhea, constipation, melena, hematochezia, or bright red blood per rectum. Patient History Medical History Abnormal Pap smear of cervix Acid reflux Arthritis Bruises easily Depression Essential hypertension Fibromyalgia Hemorrhoid History of urinary incontinence History of UTI Hyperlipidemia Ovarian cyst (~2002) Recurrent UTI Urinary frequency Surgical History Anesthesia History of hysterectomy (~2002) Lipoma Family & Social History Family History Father History of heart disease Hyperlipidemia Hypertension Stroke Tuberculosis Mother Cancer Grandfather Cancer Grandfather Fall Grandmother History of heart disease Social History: household members spouse Tobacco & Substance use: Smoking Status Former smoker alcohol intake current alcohol intake frequency 0-2 drinks per day Substance Use Type does not use Meds Home Medications and Allergies Home Medications Medication Instructions Recorded Confirmed Type cholecalciferol (vitamin D3) 25 25 mcg PO DAILY 09/08/20 02/01/22 History mcg (1,000 unit) capsule (Vitamin D3) metoprolol succinate 25 mg 25 mg PO DAILY #90 tabs 04/27/21 02/01/22 Rx tablet,extended release 24 hr gabapentin 100 mg capsule 200 mg PO BEDTIME #180 caps 05/26/21 02/01/22 Rx duloxetine 40 mg capsule,delayed 40 mg PO DAILY #90 caps 08/10/21 02/01/22 Rx release sodium,potassium,mag sulfates 17.5 See Rx Instructions PO .COMPLEX 01/14/22 02/01/22 Rx gram-3.13 gram-1.6 gram oral soln #354 mL (Suprep Bowel Prep Kit) zolpidem 5 mg tablet 5 mg PO BEDTIME PRN insomnia #30 01/21/22 02/01/22 Rx tabs atorvastatin 10 mg tablet 10 mg PO DAILY #90 tabs 01/25/22 02/01/22 Rx Allergies Allergy/AdvReac Type Severity Reaction Status Date / Time ciprofloxacin [CIPROFLOXACIN] Allergy Severe attacked Verified 02/01/22 13:09 tendon on knee nitrofurantoin Allergy Severe made very Verified 02/01/22 13:09 [NITROFURANTOIN] weak Sulfa (Sulfonamide AdvReac Unknown father has Verified 02/01/22 13:09 Antibiotics) a history [SULFA (SULFONAMIDE of skin ANTIBIOTICS)] sheddingwhen taking sulfa drugs Exam Vital Signs (past 8 hours): - 02/01/22 13:14 Temperature 98.0 F Pulse Rate 79 Respiratory Rate 16 Blood Pressure 151/70 H Pulse Oximetry 100 Oxygen Delivery Method Room Air Oxygen Delivery Method Room Air Narrative Exam Narrative: General adult woman alert oriented no acute distress Chest nonlabored respiration Abdomen soft nontender nondistended Assessment & Plan Assessment & Plan narrative: The patient requires colorectal screening and colonoscopy is recommended. Technical details were discussed. Risks, benefits, alternatives explained. Risks including but not limited to myocardial infarction, aspiration, bleeding, pain, missed lesion, incomplete examination, need for further radiographic dayday dies, colonic perforation, and need for major abdominal surgery were discussed. All questions were answered to their satisfaction, and they are in agreement with this plan. Time Spent With Patient Critical Care time: I spent a total of [] minutes of critical care time on this patient's care today; this time is exclusive of procedural time.
--- NOTE | 2022-02-01 14:39 | PM.OP.COLON ---
Operative Date/Time/Diagnoses Date of procedure: 02/01/22 Time of procedure: 14:39 Pre-op diagnosis: Screening colonoscopy Post-op diagnosis: same Procedure & Clinicians Study performed: Colonoscopy Same procedure as scheduled: Yes Indications: Screening Surgeon: Abner Dumont Procedure Notes Procedure in detail: Medications: Conscious sedation using 6mg IV midazolam and 200mcg IV of fentanyl The history and physical was performed/updated and the patient is ASA class is 2. The procedure was discussed in detail with the patient. Potential risks complications including infection, bleeding, missed diagnosis, perforation, need for surgery, and were explained. Their questions were answered and informed consent was obtained. Patient was brought to the procedure room and placed standard monitoring equipment. The patient's vital signs were monitored continuously throughout the entire procedure. Prior to starting time-out was performed. The patient was placed in the left lateral recumbent position. Procedural sedation was administered. Examination began with a thorough inspection of the perianal area there was no evidence of fissures, fistulae, external hemorrhoids or cutaneous malignancy. The colonoscopy scope was then placed into the anal canal and was advanced to the cecum, which was identified by the ileocecal valve, the appendiceal orifice and the confluence of the taenia. The scope was then slowly withdrawn examining colon thoroughly in all directions, irrigating it of any residual stool. FINDINGS 1. No masses or polyps 2. Tortuous colon 3. Internal hemorrhoids The patient tolerated the procedure well. They will be discharged once criteria are met. The prep was of good/excellent quality. The withdrawl time was 6 minutes. The sedation time was 23 minutes. Specimen(s): none sent Complications: none Impression: Normal colonoscopy Post-procedure Recommendations: Colonoscopy in 10 years Disposition: same day surgery
[2022-02-01] MEDS: fentaNYL 250 MCG/5 ML INJ 200 MCG IV (14:40)
[2022-02-01] MEDS: MIDAZOLAM 5 MG/5 ML VIAL 6 MG IV (14:41)
[2022-02-01 14:43] VITALS: BP 149/72; PULSE 78; RESP 10; TEMP 36.9; O2SAT 95
[2022-02-01 14:49] VITALS: BP 151/63; PULSE 76; RESP 15; O2SAT 98
[2022-02-01 14:54] VITALS: BP 127/60; PULSE 76; RESP 13; O2SAT 99
[2022-02-01 15:00] VITALS: BP 142/59; PULSE 76; RESP 14; TEMP 36.7; O2SAT 99
[2022-02-01 15:14] VITALS: BP 107/68; PULSE 76; RESP 13; TEMP 36.8; O2SAT 100
--- NOTE | 2022-02-01 15:18 | SUR.PHASEII ---
SBAR report to Leydi Flores
--- NOTE | 2022-02-01 15:37 | SUR.PHASEII ---
Stable phase 2, pt ready to go home, dressed, left unit in stable condition.
== END 2022-02-01 15:35 | disposition home or self-care (01) ==
PROVIDERS: PCP Family Medicine; Referring Provider Surgery; Visit Provider Surgery
PROC: 0DJD8ZZ Inspection of Lower Intestinal Tract, Via Natural or Artificial Opening Endoscopic (ICD-10-PCS; CPT 45378; principal; 2022-02-01 13:45)
DX: Z12.11 Encounter for screening for malignant neoplasm of colon (principal); K64.8 Other hemorrhoids; K21.9 Gastro-esophageal reflux disease without esophagitis; I10 Essential (primary) hypertension; M79.7 Fibromyalgia; E78.5 Hyperlipidemia, unspecified; F32.A Depression, unspecified; Z87.891 Personal history of nicotine dependence
CPT/HCPCS: G0121; 93005; 93010; 99152; J2250; J3010

== ENCOUNTER 2022-05-27 12:47 | Emergency (ER) | payer MEDICARE, OTHER, SELFPAY ==
[2022-05-27 13:09] VITALS: TEMP 36.2; BMI 25.0
--- NOTE | 2022-05-27 13:11 | DI.RAD.S_ITS ---
PROCEDURE: XR ANKLE LT MIN 3V INDICATIONS: ankle injury TECHNIQUE: 3 views of the ankle were acquired. COMPARISON: None. FINDINGS: Bones: No fractures or dislocations. Ankle mortise is normally aligned. No suspicious bony lesions. Soft tissues: No tibiotalar joint effusion. Achilles tendon appears normal. IMPRESSION: No trauma found. Dictated by: Umberto Duran M.D. on 05/27/2022 at 14:19 Approved by: Umberto Duarn M.D. on 05/27/2022 at 14:19
--- NOTE | 2022-05-27 14:05 | ED_ITS ---
HPI - Extremity Injury (Lower) <Elisa Irvin, [facility] - Last Filed: 05/27/22 15:58> General Chief Complaint: Extremity Injury, Lower Stated Complaint: Left ankle pain after fall yesterday morning Time Seen by Provider: 05/27/22 13:21 Source: patient Mode of arrival: Wheelchair History of Present Illness HPI Narrative: This is a 76 year old female with history of recurrent UTIs without recent antibiotics and presents to the emergency department for left ankle pain as a result of a fall yesterday when she was getting off of the toilet. She states that she is had urinary urgency, frequency, and some recent incontinence so she was seated on the toilet for long period of time, states that when she tried to get up, she stood up quickly and everything started to get blurry, she tried to grab the counter but states it was slippery and she did not make it and slid down onto her left side. She endorses left elbow pain last night after her fall with a bruise on her right upper arm but denies elbow pain today, has ecchymosis without tenderness, swelling or range of motion deficit. She denies any numbness or tingling anywhere, she denies dizziness, fever, chills, nausea, vomiting, or any changes to her stool. She denies any upper respiratory infection symptoms. Denies chest pain, shortness of breath, or dizziness today. She is not on anticoagulants has allergies to ciprofloxacin, nitrofurantoin, and sulfa. States that she is seen a urologist in the past for cystoscopy but has not for many years and they were in [place]. She states that her left ankle is too painful to bear weight, her fall yesterday morning has caused her to only use her forefoot or trying to ambulate at home. She states that it does feel better today and she can ambulate using her forefoot. Patient states that she is had lower abdominal pain/suprapubic tenderness off and on over the last week. Related Data Home Medications Medication Instructions Recorded Confirmed cholecalciferol (vitamin D3) 25 25 mcg PO DAILY 09/08/20 02/01/22 mcg (1,000 unit) capsule (Vitamin D3) Previous Rx's Medication Instructions Recorded atorvastatin 10 mg tablet 10 mg PO DAILY #90 tabs 01/25/22 duloxetine 40 mg capsule,delayed 40 mg PO DAILY #90 caps 04/21/22 release gabapentin 100 mg capsule 200 mg PO BEDTIME #180 caps 05/25/22 metoprolol succinate 25 mg 25 mg PO DAILY #90 tabs 05/25/22 tablet,extended release 24 hr zolpidem 5 mg tablet 5 mg PO BEDTIME PRN insomnia #30 05/25/22 tabs cephalexin 500 mg capsule 500 mg PO QID 7 days #28 caps 05/27/22 diclofenac sodium 1 % topical gel 4 g topical QID ankle pain #100 05/27/22 grams ibuprofen 600 mg tablet 600 mg PO Q6H PRN pain #30 tabs 05/27/22 phenazopyridine 100 mg tablet 100 mg PO TID PRN pain 6 doses #7 05/27/22 (Pyridium) tabs Allergies Allergy/AdvReac Type Severity Reaction Status Date / Time ciprofloxacin [CIPROFLOXACIN] Allergy Severe attacked Verified 05/27/22 13:09 tendon on knee nitrofurantoin Allergy Severe made very Verified 05/27/22 13:09 [NITROFURANTOIN] weak Sulfa (Sulfonamide AdvReac Unknown father has Verified 05/27/22 13:09 Antibiotics) a history [SULFA (SULFONAMIDE of skin ANTIBIOTICS)] sheddingwhen taking sulfa drugs Review of Systems <DOE Barker - Last Filed: 05/27/22 15:58> Review of Systems Narrative: Review of systems is negative for acute abnormalities unless otherwise noted in HPI Patient History <DOE Barker - Last Filed: 05/27/22 15:58> Medical History Abnormal Pap smear of cervix Acid reflux Arthritis Bruises easily Depression Essential hypertension Fibromyalgia Hemorrhoid History of urinary incontinence History of UTI Hyperlipidemia Ovarian cyst (~2002) Recurrent UTI Urinary frequency Surgical History Anesthesia History of hysterectomy (~2002) Lipoma Family History Father History of heart disease Hyperlipidemia Hypertension Stroke Tuberculosis Mother Cancer Grandfather Cancer Grandfather Fall Grandmother History of heart disease Social History household members: spouse Smoking Status: Former smoker alcohol intake: current Smoking Status: Former smoker alcohol intake frequency: 0-2 drinks per day Substance Use Type: does not use Exam <DOE Barekr - Last Filed: 05/27/22 15:58> Narrative Exam Narrative: Reviewed vitals signs and nursing notes. General: cooperative, comfortable, in no acute distress, well groomed HEENT: symmetrical facial expressions, moist mucous membranes GI: abdomen soft, nontender to palpation, nondistended, without masses, rebound tenderness or exquisite tenderness with exam. Without CVA tenderness MSK: moves all extremities, neurovascularly intact, no weakness, normal tone, patient's left lower extremity with some ecchymosis on the lateral aspect behind her malleolus, no tenderness to bilateral malleoli, flexion and extension intact to her left ankle and limitation is only due to pain, patient is able to bear weight, tenderness over her ATFL and CFL on the left, PT and DP pulses are 2+ and strong Skin: brisk capillary refill, without pallor or erythema Neuro: normal speech and cognition, A&O x3, ambulatory, clear speech Psych: mental status is grossly normal, congruent mood, normal affect, pleasant and cooperative Initial Vital Signs Initial Vital Signs: Vital Signs Temperature 97.1 F L 05/27/22 13:09 <Siobhan García MD - Last Filed: 05/28/22 07:28> Initial Vital Signs Initial Vital Signs: Vital Signs Temperature 97.1 F L 05/27/22 13:09 Course <DOE Barker - Last Filed: 05/27/22 15:58> Orders Ordered: Discontinued Medications Acetaminophen (Acetaminophen 325 Mg Tablet) 650 mg PO NOW ONE Stop: 05/27/22 14:30 Last Admin: 05/27/22 14:51 Dose: 650 mg Documented By: PITO Cephalexin HCl (Cephalexin 250 Mg Capsule) 500 mg PO NOW ONE Stop: 05/27/22 14:42 Last Admin: 05/27/22 14:50 Dose: 500 mg Documented By: PITO Ketorolac Tromethamine (Ketorolac 10 Mg Tablet) 10 mg PO NOW ONE Stop: 05/27/22 14:30 Last Admin: 05/27/22 14:51 Dose: 10 mg Documented By: PITO Phenazopyridine HCl (Phenazopyridine 100 Mg Tablet) 100 mg PO NOW ONE Stop: 05/27/22 14:42 Last Admin: 05/27/22 14:50 Dose: 100 mg Documented By: PITO Vital Signs Vital signs: Vital Signs - 8 hr 05/27/22 13:09 05/27/22 14:07 05/27/22 14:08 Temperature 97.1 F L Pulse Rate Blood Pressure 140/79 Pulse Oximetry 98 Oxygen Delivery Method Room Air 05/27/22 14:08 Temperature Pulse Rate 87 Blood Pressure Pulse Oximetry 98 Oxygen Delivery Method Room Air <Siobhan García MD - Last Filed: 05/28/22 07:28> Orders Ordered: Discontinued Medications Acetaminophen (Acetaminophen 325 Mg Tablet) 650 mg PO NOW ONE Stop: 05/27/22 14:30 Last Admin: 05/27/22 14:51 Dose: 650 mg Documented By: PITO Cephalexin HCl (Cephalexin 250 Mg Capsule) 500 mg PO NOW ONE Stop: 05/27/22 14:42 Last Admin: 05/27/22 14:50 Dose: 500 mg Documented By: PITO Ketorolac Tromethamine (Ketorolac 10 Mg Tablet) 10 mg PO NOW ONE Stop: 05/27/22 14:30 Last Admin: 05/27/22 14:51 Dose: 10 mg Documented By: PITO Phenazopyridine HCl (Phenazopyridine 100 Mg Tablet) 100 mg PO NOW ONE Stop: 05/27/22 14:42 Last Admin: 05/27/22 14:50 Dose: 100 mg Documented By: PITO Vital Signs Vital signs: Vital Signs - 8 hr 05/27/22 13:09 05/27/22 14:07 05/27/22 14:08 Temperature 97.1 F L Pulse Rate Blood Pressure 140/79 Pulse Oximetry 98 Oxygen Delivery Method Room Air 05/27/22 14:08 Temperature Pulse Rate 87 Blood Pressure Pulse Oximetry 98 Oxygen Delivery Method Room Air MDM - Extremity Injury (Lower) <DOE Barker - Last Filed: 05/27/22 15:58> Lab Data Labs: Lab Results 05/27/22 Range/Units 14:36 Urine Color Yellow Urine Appearance Slightly cloudy Urine pH 5.0 (4.5-8.0) Ur Specific [place] 1.015 (1.000-1.035) Urine Protein Trace H (Negative) Urine Glucose (UA) Trace H (Negative) g/dL Urine Ketones Negative (NEGATIVE) Urine Occult Blood Trace-lysed (Negative) Urine Nitrate Negative (Negative) Urine Bilirubin Negative (NEGATIVE) Urine Urobilinogen 0.2 (0.2) E.U./dL Ur Leukocyte Esterase 1+ H (NEGATIVE) Urine RBC 1-5/hpf (0-5/HPF) Urine WBC 5-10/hpf H (0-5/HPF) Ur Squamous Epith Cells 1-5 /hpf (0-5/HPF) Amorphous Sediment 1+ Urine Bacteria Few (2-10) H (None) Hyaline Casts 5-10/lpf (None) Granular Casts 0-1/lpf (None) Urine Mucus 1+ H (Negative) Ur Culture Indicated? Specimen cultured Imaging Data Extremity x-ray #1: Radiologist's Impression: [address] [address] XRay Report Signed Patient: Mary Grace Duff MR#: [id number] : 1945 Acct:[id number] Age/Sex: 76 / F Date of Service: 05/27/22 Loc: ED Accession Number: [id number] ?? Procedure: XR ankle LT min 3V Ordering Provider: Siobhan García MD PROCEDURE:? XR ANKLE LT MIN 3V ? INDICATIONS:? ankle injury ? TECHNIQUE:? 3 views of the ankle were acquired.? ? COMPARISON:? None. ? FINDINGS:? ? Bones:? No fractures or dislocations.? Ankle mortise is normally aligned.? No suspicious bony lesions.? ? Soft tissues:? No tibiotalar joint effusion.? Achilles tendon appears normal.? ? ? IMPRESSION:? No trauma found. ? Dictated by: Umberto Duran M.D. on 05/27/2022 at 14:19 ? ? Approved by: Umberto Duran M.D. on 05/27/2022 at 14:19 ? MDM Narrative Medical decision making narrative: This is a 76-year-old female presents to the emergency department with a fall that she sustained while getting up from the toilet yesterday morning, states that she is been having suprapubic discomfort for 1 week, urinary urgency, frequency, dysuria without flank pain, nausea, vomiting, chills, or other associated symptoms. She states that she is had history of chronic urinary tract infections, has not been on antibiotics for them for at least 1 year, on chart review patient had a urine culture from 04/20/2020 that grew out Klebsiella pneumoniae, that is the most recent urine culture. States that her symptoms started about 1 week ago, when she stood up from the toilet, she said that she stood up fast and she felt dizzy immediately and try to catch herself with the counter top and did not make it falling down onto her left side. Her left ankle x-rays negative for acute osseous abnormality, fracture, or tibiotalar effusion. Patient declined a walking boot as she was able to bear weight with a Filippo bandage, she was given p.o. Toradol and Tylenol in the emergency department, will opt to treat her acute cystitis with cephalexin q.i.d. for likely complicated urinary tract infection with her history. I encouraged her to follow-up with Dr. Mena for a repeat urinary test after her antibiotics to make sure this is better, she understands to follow-up at [facility] if her ankle pain does not improve or if it gets worse, and to return to the emergency department for fever, chills, worsening urinary symptoms. Patient is appropriate and amenable to discharge home. Vital signs are stable on repeat examination is unremarkable. Patient has been informed of results. Patient has been given strict return to ER precautions for any new or worsening symptoms. Patient understands to follow up closely with outpatient providers as instructed. Patient understands plan and agrees to discharge home. All questions and concerns answered at this time. <Siobhan García MD - Last Filed: 05/28/22 07:28> Lab Data Labs: Lab Results 05/27/22 Range/Units 14:36 Urine Color Yellow Urine Appearance Slightly cloudy Urine pH 5.0 (4.5-8.0) Ur Specific [place] 1.015 (1.000-1.035) Urine Protein Trace H (Negative) Urine Glucose (UA) Trace H (Negative) g/dL Urine Ketones Negative (NEGATIVE) Urine Occult Blood Trace-lysed (Negative) Urine Nitrate Negative (Negative) Urine Bilirubin Negative (NEGATIVE) Urine Urobilinogen 0.2 (0.2) E.U./dL Ur Leukocyte Esterase 1+ H (NEGATIVE) Urine RBC 1-5/hpf (0-5/HPF) Urine WBC 5-10/hpf H (0-5/HPF) Ur Squamous Epith Cells 1-5 /hpf (0-5/HPF) Amorphous Sediment 1+ Urine Bacteria Few (2-10) H (None) Hyaline Casts 5-10/lpf (None) Granular Casts 0-1/lpf (None) Urine Mucus 1+ H (Negative) Ur Culture Indicated? Specimen cultured Discharge Plan Departure Patient Disposition: Home Clinical Impression: Fall Qualifiers: Encounter type: initial encounter Qualified Code(s): W19.XXXA - Unspecified fall, initial encounter Ankle sprain Qualifiers: Encounter type: initial encounter Involved ligament of ankle: unspecified ligament Laterality: left Qualified Code(s): S93.402A - Sprain of unspecified ligament of left ankle, initial encounter Acute cystitis Qualifiers: Hematuria presence: with hematuria Qualified Code(s): N30.01 - Acute cystitis with hematuria Instructions: Acute Cystitis, Ankle Sprain Activity Restrictions/Additional Instructions: *You have been diagnosed with a fall, a large bruise on your left upper arm, likely a sprain of your left ankle. You have a urinary tract infection and we will send your urine for culture to determine the bacteria. Please schedule a follow-up appointment with Dr. Steve to retest your urine after these antibiotics and make sure your infection is under control. You may schedule an appointment at [facility] if your left ankle pain is getting worse, if you are unable to bear weight, and if you need follow-up. Please elevate this frequently, take ibuprofen every 6-8 hours with food and water, ice, rest, and wear the walking boot if you are going to bear weight. If it is tolerable, it is okay to continue, if it is not, please avoid it. Please come back to the emergency department if you develop any worsening symptoms including fever, chills, worsening urinary tract infection, worsening ankle pain. Please stay hydrated, follow-up with your primary care provider, and return if you need to, I hope this gets better soon. *What to do: *Please continue to take your regular medications as directed. [ x] New medication prescriptions sent to your pharmacy: [[facility] ] [ ] New medication written as a paper prescription [ ] No new medications given *Please follow up with your primary care provider in 2-3 days, call for an appointment. Let them know you were seen in the Emergency Department and that we asked that you be seen for follow-up. We will electronically transmit a record of today's note if your PCP is in our system *If you do not have a primary care provider please contact [phone] to establish care with one of the [facility] primary care providers. *Return to Emergency Department if you should have any new, worsening, or concerning symptoms, such as [fever greater than 101F, chills, worsening pain, persistent vomiting or other bothersome symptoms]. Prescriptions: New diclofenac sodium 1 % gel 4 g topical QID Qty: 100 0RF cephalexin 500 mg capsule 500 mg PO QID 7 Days Qty: 28 0RF phenazopyridine [Pyridium] 100 mg tablet 100 mg PO TID PRN (Reason: pain) Qty: 7 0RF ibuprofen 600 mg tablet 600 mg PO Q6H PRN (Reason: pain) Qty: 30 0RF No Action atorvastatin 10 mg tablet 10 mg PO DAILY Qty: 90 3RF duloxetine 40 mg capsule,delayed release(DR/EC) 40 mg PO DAILY Qty: 90 2RF gabapentin 100 mg capsule 200 mg PO BEDTIME Qty: 180 3RF zolpidem 5 mg tablet 5 mg PO BEDTIME PRN (Reason: insomnia) Qty: 30 0RF metoprolol succinate 25 mg tablet extended release 24 hr 25 mg PO DAILY Qty: 90 1RF cholecalciferol (vitamin D3) [Vitamin D3] 25 mcg (1,000 unit) Capsule 25 mcg PO DAILY Referrals: [facility] [Provider Group] Charline Steve MD [Primary Care Provider] - Visit Report Forms: Patient Portal/API <Siobhan García MD - Last Filed: 05/28/22 07:28> Cosign ED Attending Cosignature Attestation: I was immediately available in the department for consultation throughout this patient's visit. I agree with documentation as above. Siobhan García MD
[2022-05-27 14:07] VITALS: O2SAT 98
[2022-05-27 14:08] VITALS: BP 140/79; PULSE 87; O2SAT 98
[2022-05-27] MEDS: PHENAZOPYRIDINE 100 MG TABLET PO (14:50)
[2022-05-27] MEDS: cephALEXin 250 MG CAPSULE 500 MG PO (14:50)
[2022-05-27] MEDS: KETOROLAC 10 MG TABLET PO (14:51)
[2022-05-27] MEDS: ACETAMINOPHEN 325 MG TABLET 650 MG PO (14:51)
[2022-05-27 15:02] LABS: Bilirubin Urine UA NEGATIVE (NEGATIVE); Color Urine UA YELLOW; Glucose Urine UA TRACE g/dL (Negative); Ketones Urine UA NEGATIVE (NEGATIVE); Leukocyte Esterase Urine UA 1+ (NEGATIVE); Nitrite Urine UA NEGATIVE (Negative); Occult Blood Urine UA TRACE-LYSED (Negative); Protein Urine UA TRACE (Negative); Specific Gravity Urine UA 1.015 (1.000-1.035); Urobilinogen Urine UA 0.2 E.U./dL (0.2)
--- NOTE | 2022-05-27 15:05 | PC.NURSE ---
Left ankle wrapped with bharat bandage per pt request, provider Crew aware. Pt declined the ortho boot.
[2022-05-27 15:28] LABS: Appearance Urine UA Slightly Cloudy
[2022-05-27 15:32] LABS: Amorphous Sediment Urine 1+; Bacteria Urine Few (2-10); Granular Casts Urine 0-1/LPF; Hyaline Casts Urine 5-10/LPF; RBC Urine 1-5/HPF (0-5/HPF); Squamous Epithelial Cell Urine 1-5 /HPF (0-5/HPF); WBC Urine 5-10/HPF (0-5/HPF)
[2022-05-27 15:33] LABS: Culture Indicated Urine Specimen Cultured; Mucus Urine 1+ (Negative)
== END 2022-05-27 15:10 | disposition home or self-care (01) ==
PROVIDERS: Emergency Provider Nurse Practitioner Critical Care Medicine; PCP Family Medicine
DX: S93.402A Sprain of unspecified ligament of left ankle, initial encounter (principal); N30.01 Acute cystitis with hematuria; W18.30XA Fall on same level, unspecified, initial encounter; R94.31 Abnormal electrocardiogram [ECG] [EKG]
CPT/HCPCS: 73610; 81001; 87086; 93005; 93010; 99283; 99284

== ENCOUNTER → 2022-11-25 12:24 | Outpatient (CLI) | payer MEDICARE, OTHER, SELFPAY ==
[2022-11-25 13:17] LABS: Appearance Urine UA CLEAR; Bilirubin Urine UA NEGATIVE (NEGATIVE); Color Urine UA YELLOW; Glucose Urine UA NEGATIVE (Negative); Ketones Urine UA NEGATIVE (NEGATIVE); Leukocyte Esterase Urine UA 2+ (NEGATIVE); Nitrite Urine UA NEGATIVE (Negative); Occult Blood Urine UA NEGATIVE (Negative); Protein Urine UA NEGATIVE (Negative); Specific Gravity Urine UA <=1.005 (1.000-1.035); Urobilinogen Urine UA 0.2 E.U./dL (0.2)
[2022-11-25 13:36] LABS: Bacteria Urine Occasional (0-1); RBC Urine None Seen (0-5/HPF); Renal Epithelial Cells Urine 0-1/HPF (0-1/HPF); Squamous Epithelial Cell Urine 0-1 /HPF (0-5/HPF); Transitional Epi Cells Urine 0-1/HPF (0-5/HPF); WBC Urine 1-5/HPF (0-5/HPF)
[2022-11-25 13:37] LABS: Culture Indicated Urine Specimen Cultured
== END ==
PROVIDERS: PCP Family Medicine; Referring Provider Family Medicine; Visit Provider Family Medicine
DX: N39.0 Urinary tract infection, site not specified (principal); R39.15 Urgency of urination; R39.89 Other symptoms and signs involving the genitourinary system
CPT/HCPCS: 81001; 87086

== ENCOUNTER → 2022-12-06 12:56 | Outpatient (ROUT) | payer MEDICARE, OTHER, SELFPAY ==
[2022-12-06 13:10] LABS: Bacteria Urine Few (2-10); Culture Indicated Urine Cult Not Indicated; RBC Urine None Seen (0-5/HPF); Squamous Epithelial Cell Urine 1-5 /HPF (0-5/HPF); WBC Urine 1-5/HPF (0-5/HPF)
== END ==
PROVIDERS: PCP Family Medicine; Visit Provider Physician Assistant
DX: N39.0 Urinary tract infection, site not specified (principal)
CPT/HCPCS: 81015

== ENCOUNTER → 2022-12-20 11:59 | Outpatient (CLI) | payer MEDICARE, OTHER, SELFPAY ==
--- NOTE | 2022-12-20 12:00 | DI.RAD.S_ITS ---
Bone Density Report Name: MARICARMEN PAL Age: 77 Sex: Female Ethnicity: White Date of : 1945 Indication: postmenopausal; screening for osteoporosis; parental hip fracture; Referring Provider: RAMONE NGUYEN Study: Bone densitometry was performed. Exam Date: December 20, 2022 Accession number: [id number] Bone Density: Region BMD T-score Z-score Classification AP Spine(L1-L4) 1.026 -0.2 2.2 Normal Femoral Neck (Left) 0.697 -1.4 0.7 Osteopenia Total Hip (Left) 0.727 -1.8 0.0 Osteopenia Femoral Neck (Right) 0.652 -1.8 0.3 Osteopenia Total Hip (Right) 0.786 -1.3 0.5 Osteopenia Total Hip Mean 0.756 -1.6 0.3 Osteopenia World Health Organization criteria for BMD impression classify patients as: Normal (T-score at or above -1.0), Osteopenia (T-score between -1.0 and -2.5), or Osteoporosis (T-score at or below -2.5). 10-year Fracture Risk(1): Major Osteoporotic Fracture 21% Hip Fracture 12% Reported Risk Factors: [place] (), Neck BMD=0.652, BMI=25.1, parental fracture (1) FRAX(R) Version 3.08. Fracture probability calculated for an untreated patient. Fracture probability may be lower if the patient has received treatment. Impression: The patient has low bone mass, based on the Left Total Hip T-score. The patient has an estimated ten-year risk of hip fracture of 12% and an estimated ten-year risk of major fracture of 21%, based on the WHO FRAX algorithm. The patient has risk factors, including: parental hip fracture. Discussion: BONE DENSITY IS LOW AT ONE OR MORE SKELETAL SITES. THE PATIENT'S BMD AND CLINICAL RISK FACTORS CONTRIBUTE TO THIS PATIENT'S HIGH RISK OF FRACTURE. This patient's lowest T-score is low at one or more skeletal sites. It meets the World Health Organization's (WHO) criteria for low bone mass (T-score between -1.0 and -2.5). The patient's 10-year risk of hip fracture and 10 year risk of a major osteoporotic fracture as calculated by FRAX exceeds the threshold where pharmacological therapy is recommended by the National Osteoporosis Foundation (NOF). However, all treatment decisions require clinical judgment and consideration of individual patient factors, including patient preferences, comorbidities, previous drug use, risk factors not captured in the FRAX model (e.g., frailty, falls, vitamin D deficiency, increased bone turnover, interval significant decline in bone density) and possible under or overestimation of fracture risk by FRAX. The patient should follow a healthful lifestyle (good nutrition with adequate calcium and vitamin D, and appropriate weight-bearing exercise). Follow-Up: Consider a repeat BMD and Vertebral Fracture Assessment (VFA) exam in 2 years or sooner if medically necessary, to reassess this patient's status. Reported by: DORIAN MADDEN M.D. on 12/20/2022 12:26:00 PM.
--- NOTE | 2022-12-20 12:00 | DI.US.S_ITS ---
PROCEDURE: US RENAL COMPLETE INDICATIONS: Recurrent UTIs FH kidney cancer - mother TECHNIQUE: Real-time scanning was performed of the kidneys and bladder, with image documentation. COMPARISON: None. FINDINGS: Kidneys: The kidneys are small, measuring 8.6 centimeters on the right and 6.4 centimeters on the left. There is a partially calcified lesion in the midpole of the right kidney, not clearly characterized due to posterior attenuation from the peripheral calcification. This measures approximately 3.9 centimeters. Left kidney is poorly visualized. Bladder: Mildly thickened bladder wall. Miscellaneous: No free pelvic fluid. IMPRESSION: Partially visualized lesion on the midpole of the right kidney with peripheral calcifications. Characterization is incomplete due to posterior attenuation. Recommend CT or MRI for further characterization (renal mass protocol). Mildly thickened bladder wall, which may indicate cystitis. Correlate with urinalysis. Dictated by: Ashish Macias M.D. on 12/20/2022 at 14:35 Approved by: Ashish Macias M.D. on 12/20/2022 at 14:37
== END ==
PROVIDERS: PCP Family Medicine; Referring Provider Physician Assistant; Visit Provider Physician Assistant
DX: Z78.0 Asymptomatic menopausal state (principal); N39.0 Urinary tract infection, site not specified; Z13.820 Encounter for screening for osteoporosis; M85.852 Other specified disorders of bone density and structure, left thigh
CPT/HCPCS: 76770; 77080

== ENCOUNTER → 2022-12-29 16:04 | Outpatient (CLI) | payer MEDICARE, OTHER, SELFPAY ==
--- NOTE | 2022-12-29 16:11 | DI.MRI.S_ITS ---
PROCEDURE: MR ABDOMEN RENAL PROTOCOL COMPARISON: None. INDICATIONS: Abnormal Renal US R kidney TECHNIQUE: Multiphasic, multi sequence MRI of the kidneys. Intravenous contrast was used. Coronal 3D reformats performed. FINDINGS: Liver: 2.4 centimeter hemangioma in segment 7. Punctate cysts present. Gallbladder and biliary tree: No gallstones or biliary dilation. Spleen: Normal size. Pancreas: No ductal dilation. Adrenal glands: No adrenal nodules. Kidneys: No hydronephrosis. No solid mass. No complex renal cysts which requires follow-up. Bowel: Colonic diverticulosis without evidence of diverticulitis. Nodes and vessels: No infrarenal aortic aneurysm or adenopathy. Lung bases: No pleural effusions. Heart size is within normal limits. IMPRESSION: No renal mass appreciated. Dictated by: Ashish Macias M.D. on 12/30/2022 at 9:43 Approved by: Ashish Macias M.D. on 12/30/2022 at 9:48
== END ==
PROVIDERS: PCP Family Medicine; Referring Provider Physician Assistant; Visit Provider Physician Assistant
DX: R93.421 Abnormal radiologic findings on diagnostic imaging of right kidney (principal); N39.0 Urinary tract infection, site not specified; K76.89 Other specified diseases of liver; D18.09 Hemangioma of other sites; K57.90 Diverticulosis of intestine, part unspecified, without perforation or abscess without bleeding
CPT/HCPCS: 74183; A9579

== ENCOUNTER → 2023-01-09 11:19 | Outpatient (CLI) | payer MEDICARE, OTHER, SELFPAY ==
[2023-01-09 12:59] LABS: Add Manual Diff / Slide Review NO; Basophils Absolute Auto 0 /uL (0-100); Basophils Percent Auto 0.9 % (0-2); Eosinophils Absolute Auto 200 /uL (0-450); Eosinophils Percent Auto 2.7 % (2-4); Hematocrit 37.9 % (36-46); Hemoglobin 12.9 g/dL (12.0-16.0); Lymphocytes Absolute Auto 1500 /uL (1100-4500); Mean Corpuscular Hemoglobin 30.7 PG (26-34); Mean Corpuscular Volume 90.4 fL (80-100); Monocytes Absolute Auto 500 /uL (0-900); Monocytes Percent Auto 8.3 % (3-14); Neutrophils Absolute Auto 3600 /uL (1500-7000); Neutrophils Percent Auto 62.1 % (50-75); Platelet Count 224 X10^3/uL (150-400); Red Blood Cell Count 4.19 X10^6/uL (4.0-5.2); Red Cell Distribution Width 13.9 % (11.6-14.8); White Blood Cell Count 5.8 X10^3/uL (4.5-11.0)
[2023-01-09 13:20] LABS: Alanine Aminotransferase 25 IU/L (<35); Albumin Globulin Ratio 1.6 (1.0-2.8); Alkaline Phosphatase 97 U/L (38-126); Aspartate Aminotransferase 30 IU/L (14-36); BUN Creatinine Ratio 14.6 (6-22); Bilirubin Total 0.7 mg/dL (0.2-1.3); Blood Urea Nitrogen 13 mg/dL (7-17); Calcium 8.8 mg/dL (8.4-10.2); Carbon Dioxide 28 mmol/L (22-32); Chloride 103 mmol/L (98-107); Estimated Glomerular Filt Rate > 60 mL/min (>60); Globulin 2.5 g/dL (1.7-4.1); Glucose 110 mg/dL (80-110); HEMOLYSIS < 15 (0-50); Potassium 3.8 mmol/L (3.4-5.1); Sodium 137 mmol/L (137-145); Total Protein 6.5 g/dL (6.3-8.2)
[2023-01-09 13:26] LABS: HEMOLYSIS < 15 (0-50); Iron 86 ug/dL (37-170)
[2023-01-09 13:36] LABS: Percent Iron Saturation 28 % (15-50); Total Iron Binding Capacity 310 ug/dL (265-497); Transferrin 238 mg/dL (206-381)
[2023-01-09 13:50] LABS: TSH w/ Reflex to FT4 1.28 uIU/mL (0.47-4.68)
[2023-01-09 14:05] LABS: Vitamin B12 232 pg/mL (239-931)
== END ==
PROVIDERS: Physician Assistant; PCP Family Medicine; Referring Provider Family Medicine; Visit Provider Family Medicine
DX: K59.00 Constipation, unspecified (principal); N39.0 Urinary tract infection, site not specified; R53.83 Other fatigue
CPT/HCPCS: 36415; 80053; 82607; 83540; 83550; 84443; 85025

== ENCOUNTER → 2023-01-23 13:06 | Outpatient (CLI) | payer MEDICARE, OTHER, SELFPAY ==
--- NOTE | 2023-01-23 13:10 | DI.MG.S_ITS ---
BILATERAL DIGITAL SCREENING MAMMOGRAM 3D/2D WITH CAD: 01/23/2023 CLINICAL: Routine screening. Family history of breast cancer. Comparison is made to exams dated: 01/05/2022 mammogram, 01/04/2021 mammogram, and 01/02/2020 mammogram - [facility]. Both breasts are heterogeneously dense, which may obscure small masses (category c / 51-75% glandular tissue). Current study was also evaluated with a Computer Aided Detection (CAD) system. No significant masses, calcifications, or other findings are seen in either breast. There has been no significant interval change. IMPRESSION: NEGATIVE There is no mammographic evidence of malignancy. A 1 year screening mammogram is recommended. Based on the Tyrer Cuzick model (a risk assessment model) the patient's lifetime risk is 16.9% and her 10 year risk is 16.9%. According to the ACR, ACS, and NCCN guidelines, an annual breast MRI exam along with mammogram is recommended if the patient's lifetime risk is 20% or greater. This exam was interpreted at Station ID: [id number]. NOTE: For mammograms, a report in lay terms will be sent to the patient. Approximately 15% of breast malignancies will not be visualized mammographically. In the management of a palpable breast mass, a negative mammogram must not discourage biopsy of a clinically suspicious lesion. Electronically Signed By: Dayday roberts/varun:01/23/2023 14:02:10 copy to: Charline Steve M.D., [employer], ph: [phone], fax: [phone] letter sent: Normal Exam ACR BI-RADS Category 1: Negative [id number]
== END ==
PROVIDERS: PCP Family Medicine; Referring Provider Family Medicine; Visit Provider Family Medicine
DX: Z12.31 Encounter for screening mammogram for malignant neoplasm of breast (principal); Z80.3 Family history of malignant neoplasm of breast
CPT/HCPCS: 77063; 77067

== ENCOUNTER → 2023-03-14 13:40 | Outpatient (CLI) | payer MEDICARE, OTHER, SELFPAY | PROVIDERS: PCP Family Medicine; Visit Provider Physician Assistant | DX: N39.0 Urinary tract infection, site not specified (principal) | CPT/HCPCS: 87086 ==

== ENCOUNTER 2023-06-04 20:54 | Emergency (ER) | payer MEDICARE, OTHER, SELFPAY ==
[2023-06-04 21:22] VITALS: BP 161/75; PULSE 76; RESP 18; TEMP 36.9; O2SAT 99; BMI 25.7
--- NOTE | 2023-06-04 21:29 | DI.CT.S_ITS ---
PROCEDURE: CT CERVICAL SPINE WO CON INDICATIONS: fall/head injury/no thinners TECHNIQUE: Noncontrast 3 mm thick sections acquired from the skull base to the T4 level. Sagittal and coronal reformats were then constructed. For radiation dose reduction, the following was used: automated exposure control, adjustment of mA and/or kV according to patient size. COMPARISON: [facility], CT, CT HEAD/BRAIN WO CON, 06/04/2023, 21:35. FINDINGS: Image quality: Excellent. Bones: No fractures or dislocations. Visualized superior ribs are intact. Multilevel degenerative changes. Soft tissues: Prevertebral soft tissues are normal in thickness. No paravertebral hematomas. No apical pneumothoraces. IMPRESSION: No visualized fracture. Multilevel degenerative changes. Dictated by: Isabel Hodge M.D. on 06/04/2023 at 22:08 Approved by: Isabel Hodge M.D. on 06/04/2023 at 22:09
--- NOTE | 2023-06-04 21:29 | DI.CT.S_ITS ---
PROCEDURE: CT HEAD/BRAIN WO CON INDICATIONS: fall/head injury/no thinners TECHNIQUE: Noncontrast 4.5 mm thick angled axial sections acquired from the foramen magnum to the vertex, with coronal and sagittal reformats. For radiation dose reduction, the following was used: automated exposure control, adjustment of mA and/or kV according to patient size. COMPARISON: [facility], CT, CT CERVICAL SPINE WO CON, 06/04/2023, 21:35. FINDINGS: Image quality: Excellent. CSF spaces: Basal cisterns are patent. No extra-axial fluid collections. The ventricles are symmetric in size and shape. Brain: No intracranial bleeds or masses. There is cerebral volume loss for age, with resultant ventricular and sulcal prominence. There are periventricular and deep white matter chronic small vessel ischemic changes. There is intracranial internal carotid artery atherosclerosis. Skull and face: Calvarium and visualized facial bones appear intact, without suspicious lesions. Left posterior parietal scalp hematoma. Sinuses: Visualized sinuses and mastoids are clear. IMPRESSION: 1. No acute intracranial process. 2. Mild to moderate atrophy and chronic microvascular ischemic changes. 3. Left parietal scalp hematoma. Dictated by: Isabel Hodge M.D. on 06/04/2023 at 22:07 Approved by: Isabel Hodge M.D. on 06/04/2023 at 22:08
--- NOTE | 2023-06-05 00:43 | ED.HEATRA ---
HPI - Head Injury General Chief complaint: Head Injury Stated complaint: fell/head injury Time Seen by Provider: 06/05/23 00:43 Source: patient Mode of arrival: Ambulatory History of Present Illness HPI Narrative: 77-year-old lady with a history of hypertension, hyperlipidemia was seated on a 2 ft high bench was pulling some nails out of the wall lost balance fell backwards off the bench and landed directly on her occiput. There was no loss of consciousness. She is not on blood thinners. She notes headache that is increasing and left-sided neck pain that is becoming more painful. She is not describing pain in the thorax abdomen or pelvis. No extremity injuries Related Data Home Medications Medication Instructions Recorded Confirmed cholecalciferol (vitamin D3) 25 25 mcg PO DAILY 09/08/20 12/06/22 mcg (1,000 unit) capsule (Vitamin D3) Previous Rx's Medication Instructions Recorded zolpidem 5 mg tablet 5 mg PO BEDTIME PRN insomnia #30 05/25/22 tabs ibuprofen 600 mg tablet 600 mg PO Q6H PRN pain #30 tabs 05/27/22 duloxetine 40 mg capsule,delayed 40 mg PO DAILY #90 caps 01/09/23 release metoprolol succinate 25 mg 25 mg PO DAILY #90 tabs 01/09/23 tablet,extended release 24 hr atorvastatin 10 mg tablet See Rx Instructions .Route 01/23/23 .COMPLEX #90 tabs Allergies Allergy/AdvReac Type Severity Reaction Status Date / Time ciprofloxacin [CIPROFLOXACIN] Allergy Severe attacked Verified 05/27/22 13:09 tendon on knee nitrofurantoin Allergy Severe made very Verified 05/27/22 13:09 [NITROFURANTOIN] weak Sulfa (Sulfonamide AdvReac Unknown father has Verified 05/27/22 13:09 Antibiotics) a history [SULFA (SULFONAMIDE of skin ANTIBIOTICS)] sheddingwhen taking sulfa drugs Review of Systems Review of Systems Narrative: Pertinent positive and negative findings as per HPI Patient History Medical History Bruises easily Fibromyalgia History of UTI Urinary frequency Acid reflux Arthritis Hyperlipidemia Ovarian cyst (~2002) Abnormal Pap smear of cervix History of urinary incontinence Hemorrhoid Depression Essential hypertension Recurrent UTI Surgical History Anesthesia Lipoma History of hysterectomy (~2002) Family History Father History of heart disease Hyperlipidemia Hypertension Stroke Tuberculosis Mother Cancer Grandfather Cancer Grandfather Fall Grandmother History of heart disease Social History household members: spouse Smoking Status: Former smoker alcohol intake: current Smoking Status: Former smoker alcohol intake frequency: 0-2 drinks per day Substance Use Type: does not use Exam Initial Vital Signs Initial Vital Signs: Vital Signs Temperature 98.4 F 06/04/23 21: Pulse Rate 76 06/04/23 21:22 Respiratory Rate 18 06/04/23 21:22 Blood Pressure 161/75 H 06/04/23 21:22 Pulse Oximetry 99 06/04/23 21:22 Oxygen Delivery Method Room Air 06/04/23 21:22 General: Healthy appearing, in mild pain to the back of her head Able to give a complete and coherent history. Well-nourished well-developed HEENT: Moist mucous membranes, normal sclera with reactive pupils, hematoma without abrasion or contusion left side of the occiput. Neck: No midline point tenderness but she does have significant paraspinous spasm that now is extending not just from the cervical spine but into the trapezius muscle on the left side Respiratory: Lungs are clear to auscultation, no wheezing no rales no rhonchi. Full and symmetrical air movement Cardiac: Regular rate and rhythm no murmurs no bruits Abdomen: Soft, nontender, good bowel tones, no flank pain Skin: Warm and dry, no rashes Neurologic: Grossly neurologically intact with no obvious asymmetries or abnormalities Extremities: No trauma, well perfused Psych: Cooperative, appropriate insight and affect Course Orders Ordered: ED Orders 06/04/23 21:29 CT cervical spine wo con Stat CT head/brain wo con Stat Vital Signs Vital signs: Vital Signs - 8 hr 06/04/23 21:22 Temperature 98.4 F Pulse Rate 76 Respiratory Rate 18 Blood Pressure 161/75 H Pulse Oximetry 99 Oxygen Delivery Method Room Air MDM - Head Injury MDM Narrative Medical decision making narrative: CC: Fell backwards to feet landing directly on her occiput Complicating co-morbidities: Hypertension hyperlipidemia, depression Data collected from: patient, Differential considered: Contusion, intracranial hemorrhage, cervical spine injury Exam documented above, pertinent findings include: Hematoma to the occiput with muscle spasm along the left side of cervical spine. Neurologic exam is otherwise unremarkable and no other injuries from her fall are appreciated Imaging studies independently reviewed: CT scan of the head does not show skull fracture or intracranial hemorrhage CT scan of the cervical spine does not show any fractures Treatments: Oral ibuprofen and Percocet Discussion: 77-year-old woman who fell backwards landing 2 ft directly onto her occiput. Did discuss how she is going to be more tender over the next 24-48 hours. We also discussed postconcussion syndrome and possible nausea. No evidence of intracranial hemorrhage or significant fractures. No lacerations needing repair. Talked about pain control and anticipated course of recovery, questions are answered and she is safe for discharge MIPS: Emergency Medicine: Utilization of CT for Minor Blunt Head Trauma (Adult) Patient is 18 or older, presenting with minor blunt head trauma. Head CT was ordered by an emergency care management specialist for trauma because Reasons: Patient is 65 or older Patient has severe headache Discharge Plan Departure Patient Disposition: Home Clinical Impression: Scalp hematoma Qualifiers: Encounter type: initial encounter Qualified Code(s): S00.03XA - Contusion of scalp, initial encounter Acute post-traumatic headache Qualifiers: Intractability: not intractable Qualified Code(s): G44.319 - Acute post-traumatic headache, not intractable Cervical sprain Qualifiers: Encounter type: initial encounter Qualified Code(s): S13.9XXA - Sprain of joints and ligaments of unspecified parts of neck, initial encounter Concussion Qualifiers: Encounter type: initial encounter Loss of consciousness presence/duration: without LOC Qualified Code(s): S06.0X0A - Concussion without loss of consciousness, initial encounter Instructions: DI for Concussion, DI for Postconcussion Syndrome Activity Restrictions/Additional Instructions: Thank you for coming in today Unfortunately, you are going to have increasing pain for the next 24-48 hours. Using 400 mg of ibuprofen (2 [id number] pills) and 1 Tylenol every 6 hours can be very helpful in controlling pain. For severe pain you can use to ibuprofen and 1 Percocet. Percocet does contain narcotic and will cause constipation please make sure you are taking extra stool softeners or magnesium to prevent constipation Using ice to your neck and the back of your head may be helpful in overall pain control There is no evidence of bleeding inside your head or fractures to your neck. I did not find any other significant injuries. By definition, you do have a concussion. Sometimes people find that they are dizzy and simply feel out of sorts after a concussion. I have given you some Zofran to use at home should you experience dizziness or nausea. I have also given you some printed instructions on postconcussion syndrome. If you find that you are getting worse or develop any new symptoms, please feel free to return to the emergency department for further evaluation. Prescriptions: No Action zolpidem 5 mg tablet 5 mg PO BEDTIME PRN (Reason: insomnia) Qty: 30 0RF duloxetine 40 mg capsule,delayed release(DR/EC) 40 mg PO DAILY Qty: 90 1RF metoprolol succinate 25 mg tablet extended release 24 hr 25 mg PO DAILY Qty: 90 1RF atorvastatin 10 mg tablet See Rx Instructions .ROUTE .COMPLEX Qty: 90 3RF Dose Instruction: TAKE 1 TABLET DAILY Rx Instructions: TAKE 1 TABLET DAILY cholecalciferol (vitamin D3) [Vitamin D3] 25 mcg (1,000 unit) Capsule 25 mcg PO DAILY ibuprofen 600 mg tablet 600 mg PO Q6H PRN (Reason: pain) Qty: 30 0RF Referrals: Charline Steve MD [Primary Care Provider] - Stand Alone Forms: Patient Portal/API
[2023-06-05] MEDS: OXYCODONE/ACETAMINOPHEN 5/325 TABLET 1 TAB PO (01:17)
[2023-06-05] MEDS: IBUPROFEN 400 MG TABLET PO (01:18)
[2023-06-05] MEDS: ONDANSETRON 4 MG ODT PREPACK 1 BOTTLE MISC (01:21)
[2023-06-05] MEDS: OXYCODONE/APAP 5/325 PREPACK 1 BOTTLE MISC (01:21)
[2023-06-05 01:25] VITALS: BP 153/71; PULSE 63; RESP 16; O2SAT 96
== END 2023-06-05 01:26 | disposition home or self-care (01) ==
PROVIDERS: Emergency Provider Emergency Medicine; PCP Family Medicine
DX: S00.03XA Contusion of scalp, initial encounter (principal); G44.319 Acute post-traumatic headache, not intractable; S13.9XXA Sprain of joints and ligaments of unspecified parts of neck, initial encounter; W17.89XA Other fall from one level to another, initial encounter
CPT/HCPCS: 70450; 72125; 99283

== ENCOUNTER → 2023-11-29 10:07 | Outpatient (CLI) | payer MEDICARE, OTHER, SELFPAY ==
[2023-11-29 10:49] LABS: Add Manual Diff / Slide Review NO; Basophils Absolute Auto 100 /uL (0-100); Basophils Percent Auto 1.2 % (0-2); Eosinophils Absolute Auto 300 /uL (0-450); Eosinophils Percent Auto 4.8 % (2-4); Hematocrit 39.4 % (36-46); Hemoglobin 13.3 g/dL (12.0-16.0); Lymphocytes Absolute Auto 1400 /uL (1100-4500); Lymphocytes Percent Auto 22.9 % (25-40); Mean Corpuscular HGB Conc 33.9 % (30-36); Mean Corpuscular Hemoglobin 31.1 PG (26-34); Mean Corpuscular Volume 91.8 fL (80-100); Monocytes Absolute Auto 500 /uL (0-900); Monocytes Percent Auto 7.6 % (3-14); Neutrophils Absolute Auto 3900 /uL (1500-7000); Neutrophils Percent Auto 63.5 % (50-75); Platelet Count 235 X10^3/uL (150-400); Red Blood Cell Count 4.29 X10^6/uL (4.0-5.2); Red Cell Distribution Width 13.6 % (11.6-14.8); White Blood Cell Count 6.1 X10^3/uL (4.5-11.0)
[2023-11-29 11:14] LABS: Alanine Aminotransferase 19 IU/L (<35); Albumin Globulin Ratio 1.7 (1.0-2.8); Alkaline Phosphatase 79 U/L (38-126); Aspartate Aminotransferase 29 IU/L (14-36); BUN Creatinine Ratio 11.7 (6-22); Bilirubin Total 0.6 mg/dL (0.2-1.3); Blood Urea Nitrogen 11 mg/dL (7-17); Carbon Dioxide 29 mmol/L (22-32); Chloride 108 mmol/L (98-107); Cholesterol 178 mg/dL (140-199); Estimated Glomerular Filt Rate > 60 mL/min (>60); Globulin 2.4 g/dL (1.7-4.1); Glucose 98 mg/dL (80-110); HDL Cholesterol 80 mg/dL (40-60); HEMOLYSIS < 15 (0-50); LDL Cholesterol Calculated 77 mg/dL (<100); Sodium 140 mmol/L (137-145); Total Protein 6.4 g/dL (6.3-8.2); Triglycerides 107 mg/dL (35-150)
[2023-11-29 11:31] LABS: Vitamin D 25 Hydroxy (D3) 32.3 ng/mL (30.0-100.0)
[2023-11-29 11:48] LABS: TSH w/ Reflex to FT4 2.53 uIU/mL (0.47-4.68)
[2023-11-29 12:23] LABS: Creatinine Urine Random 136.4 mg/dL
[2023-11-29 12:27] LABS: Microalbumin Urine Random < 0.6 mg/dL (0-1.6)
== END ==
PROVIDERS: PCP Family Medicine; Referring Provider Family Medicine; Visit Provider Family Medicine
DX: R53.83 Other fatigue (principal); I10 Essential (primary) hypertension
CPT/HCPCS: 36415; 80053; 80061; 82043; 82306; 82570; 84443; 85025

== ENCOUNTER → 2024-02-22 15:19 | Outpatient (CLI) | payer MEDICARE, OTHER, SELFPAY ==
--- NOTE | 2024-02-22 15:20 | DI.MG.S_ITS ---
BILATERAL DIGITAL SCREENING MAMMOGRAM 3D/2D WITH CAD: 02/22/2024 CLINICAL: Routine screening. Family history of breast cancer. Comparison is made to exams dated: 01/23/2023 mammogram, 01/05/2022 mammogram, and 01/04/2021 mammogram - [facility]. Both breasts are heterogeneously dense, which may obscure small masses (category c / 51-75% glandular tissue). Current study was also evaluated with a Computer Aided Detection (CAD) system. No significant masses, calcifications, or other findings are seen in either breast. There has been no significant interval change. IMPRESSION: NEGATIVE There is no mammographic evidence of malignancy. A 1 year screening mammogram is recommended. Based on the Tyrer Cuzick model (a risk assessment model) the patient's lifetime risk is 15.6% and her 10 year risk is 0.0%. According to the ACR, ACS, and NCCN guidelines, an annual breast MRI exam along with mammogram is recommended if the patient's lifetime risk is 20% or greater. This exam was interpreted at Station ID: [id number]. NOTE: For mammograms, a report in lay terms will be sent to the patient. Approximately 15% of breast malignancies will not be visualized mammographically. In the management of a palpable breast mass, a negative mammogram must not discourage biopsy of a clinically suspicious lesion. Electronically Signed By: Mathieu graham/varun:02/23/2024 11:51:42 copy to: Charline Steve M.D., [facility] [employer], ph: [phone], fax: [phone] letter sent: Normal Exam ACR BI-RADS Category 1: Negative [id number]
== END ==
PROVIDERS: PCP Family Medicine; Referring Provider Family Medicine; Visit Provider Family Medicine
DX: Z12.31 Encounter for screening mammogram for malignant neoplasm of breast (principal); Z80.3 Family history of malignant neoplasm of breast; R92.333 Mammographic heterogeneous density, bilateral breasts
CPT/HCPCS: 77063; 77067

== ENCOUNTER → 2024-04-03 12:59 | Outpatient (CLI) | payer MEDICARE, OTHER, SELFPAY | PROVIDERS: PCP Family Medicine; Referring Provider Nurse Practitioner Family; Visit Provider Nurse Practitioner Family | DX: R10.13 Epigastric pain (principal); R10.2 Pelvic and perineal pain | CPT/HCPCS: 87086; 87210 ==

== ENCOUNTER 2024-07-25 09:53 | Emergency (ER) | payer MEDICARE, OTHER, SELFPAY ==
[2024-07-25] VITALS (35 sets, daily range): BP systolic 140–210; BP diastolic 64–96; PULSE 56–82; RESP 10–22; O2SAT 93–100; BMI 26.3
--- NOTE | 2024-07-25 10:08 | DI.CT.S_ITS ---
PROCEDURE: CT HEAD/BRAIN WO CON INDICATIONS: s/p SAH, decreasing activity, persistent march, na TECHNIQUE: Noncontrast 4.5 mm thick angled axial sections acquired from the foramen magnum to the vertex, with coronal and sagittal reformats. For radiation dose reduction, the following was used: automated exposure control, adjustment of mA and/or kV according to patient size. COMPARISON: [facility], CT, CT HEAD/BRAIN WO CON, 06/04/2023, 21:35. FINDINGS: Image quality: Diagnostic. CSF spaces: Basal cisterns are patent. There is a small amount intraventricular hemorrhage in the posterior horns of the lateral ventricles, layering posteriorly. There is density along the basilar artery which may potentially represent hyperdense basilar artery or focal hemorrhage subjacent to the basilar artery. There is minimal density along the tentorium possibly representing very thin subdural the tentorium.. The ventricles are symmetric in size and shape. Brain: No intracranial bleeds or masses. There is cerebral volume loss for age, with resultant ventricular and sulcal prominence. There are periventricular and deep white matter chronic small vessel ischemic changes. There is intracranial internal carotid artery atherosclerosis. Skull and face: Calvarium and visualized facial bones appear intact, without suspicious lesions. Sinuses: Visualized sinuses and mastoids are clear. IMPRESSION: 1. Prior studies are not available for comparison. 2. There is very minimal subtle intraventricular hemorrhage. 3. Very minimal subtle subdural hemorrhage along the tentorium. 4. Density potentially involving the basilar artery or representing small clot subjacent to the basilar artery. Comment: Recommend CTA head and neck. Comment: Findings were discussed with Dr. Barrios on 07/25/2024 at 1113 hours Dictated by: Jamil Fatima M.D. on 07/25/2024 at 11:05 Approved by: Jamil Fatima M.D. on 07/25/2024 at 11:20
--- NOTE | 2024-07-25 10:11 | ED.GENADULT ---
HPI - General Adult General Chief complaint: Weakness Stated complaint: Decreased level of conciousness Time Seen by Provider: 07/25/24 10:01 Source: patient, family (), EMS, RN notes reviewed and old records reviewed Mode of arrival: EMS Limitations: no limitations History of Present Illness HPI narrative: 78-year-old female history of hypertension dyslipidemia, recent traumatic subarachnoid hemorrhage patient was hospitalized at [facility] was discharged home this Monday and has been home for the past 5 days. Has been states she was just had sort of a slow decline. He notes she has been less active she was ambulating and walking and has been doing less and less so and he could not get her out of bed today. Patient has also not been eating or drinking much she states she has been in voiding foods and even water because she was nauseated. She does have Zofran available and has been using it as needed no fevers no sudden neurologic changes otherwise. Patient states she has had persistent headaches worse in the morning getting better as the day goes by. She has been taking oxycodone for her headaches just somewhat helpful. No chest pain, no shortness of breath. She has had nausea threw up the 1st day she was home but has not had any more emesis. Has not had a bowel movement for about a week but states she was passing flatus. She states she did not urinate today but has had some decreased output but she relates this to her decreased intake which has been purposeful. Patient denies any new weakness or new difficulty with moving her extremities. She was not anticoagulated she has been taking Zofran and oxycodone for pain management and nausea. Has allergies to Cipro, nitrofurantoin and sulfa. Former smoker, no regular alcohol, no recreational drugs. Dr. Fagan is her primary care physician she was follow up with them this upcoming Monday. She has not been set up with physical therapy has been states the plan was to discuss with primary care at her visit. Related Data Home Medications Medication Instructions Recorded Confirmed cholecalciferol (vitamin D3) 25 25 mcg PO DAILY 09/08/20 06/28/24 mcg (1,000 unit) capsule (Vitamin D3) Previous Rx's Medication Instructions Recorded zolpidem 5 mg tablet 5 mg PO BEDTIME PRN insomnia #30 12/04/23 tabs atorvastatin 10 mg tablet See Rx Instructions .Route 01/17/24 .COMPLEX #90 tabs metoprolol succinate 25 mg 25 mg PO DAILY #90 tabs 06/17/24 tablet,extended release 24 hr oxybutynin chloride 5 mg 5 mg PO DAILY #30 tabs 06/28/24 tablet,extended release 24 hr duloxetine 40 mg capsule,delayed 40 mg PO DAILY #90 caps 07/02/24 release metoclopramide HCl 10 mg tablet 10 mg PO Q6H PRN nausea and 07/25/24 (Reglan) vomiting #10 tabs ondansetron 4 mg disintegrating 4 mg PO Q6H PRN nausea and 07/25/24 tablet vomiting #14 tabs oxycodone 5 mg tablet 5 mg PO Q6H PRN pain #14 tabs 07/25/24 Allergies Allergy/AdvReac Type Severity Reaction Status Date / Time ciprofloxacin [CIPROFLOXACIN] Allergy Severe attacked Verified 06/28/24 08:24 tendon on knee nitrofurantoin Allergy Severe made very Verified 06/28/24 08:24 [NITROFURANTOIN] weak Sulfa (Sulfonamide AdvReac Unknown father has Verified 06/28/24 08:24 Antibiotics) a history [SULFA (SULFONAMIDE of skin ANTIBIOTICS)] sheddingwhen taking sulfa drugs Review of Systems Review of Systems ROS Unobtainable: All systems reviewed & are unremarkable except as noted in HPI and below Patient History Medical History Bruises easily Fibromyalgia History of UTI Urinary frequency Acid reflux Arthritis Hyperlipidemia Ovarian cyst (~2002) Abnormal Pap smear of cervix History of urinary incontinence Hemorrhoid Depression Essential hypertension Recurrent UTI Surgical History Anesthesia Lipoma History of hysterectomy (~2002) Family History Father History of heart disease Hyperlipidemia Hypertension Stroke Tuberculosis Mother Cancer Grandfather Cancer Grandfather Fall Grandmother History of heart disease Social History household members: spouse Smoking Status: Former smoker alcohol intake: current Smoking Status: Former smoker alcohol intake frequency: 0-2 drinks per day Exam Narrative Exam Narrative: GEN: Patient appears in mild distress. Patient is alert, answers questions appropriately. Does have little bit of a flat affect. HEAD: Patient has ecchymosis that is periorbital over the right cheek and chin with a little bit of healing abrasion that is scabbed. The ecchymosis is mostly greenish discoloration scant amount of purplish, no raccoon/Pace sign. NECK: Nontender, painless range of motion, trachea midline EYES: PERRLA, EOMI ENT: External inspection normal, trachea is midline, TM's are normal no hemotypanum, Nares are clear, no septal hematoma, no dental or oral injury, airway is normal and with normal occlusion, No bony tenderness, patient has dry mucous membranes. RESP: Chest is nontender and has symmetric movement, no ecchymosis, breath sounds are normal no crackles, wheezes or rales CVS: Heart sounds are normal, no murmur noted, No JVD. ABG/GI: Nontender, soft, normal bowel sounds, no distention, no organomegaly, pelvic rock is negative NEURO: Oriented AOx3, neuro is grossly intact, sensation and motor is normal all 4 extremities moving, cranial nerves II through XII are intact, GCS is 15 SKIN: Intact, warm and dry, no crepitus and without decubitus BACK: No CVA tenderness, no vertebral tenderness, no step-off's, no crepitus EXT: Atraumatic, hips are nontender, normal range of motion, no drift or weakness on exam of upper and lower extremities. Initial Vital Signs Initial Vital Signs: Vital Signs Pulse Rate 64 07/25/24 09:58 Blood Pressure 146/74 H 07/25/24 09:58 Course Orders Ordered: ED Orders 07/25/24 10:08 CT head/brain wo con Stat 07/25/24 10:10 CBC Auto Diff [Complete Blood Count AUTO DIFF] Stat CMP [Comprehensive Metabolic Panel] Stat Lipase Stat PTT Partial Thromboplastin Amandeep Stat Prothrombin Time INR Stat 07/25/24 11:18 CT angio head and neck Stat 07/25/24 14:35 Urine Culture Stat Urine Microscopic Stat 07/25/24 15:02 CT head/brain wo con Stat 07/25/24 16:40 BMP [Basic Metabolic Panel] Stat 07/25/24 16:42 Consult to HYDRO EXCAVATION OPERATOR - Terrazzo Roller Stat 07/25/24 17:52 Consult to Home Health Stat Discontinued Medications Acetaminophen (Acetaminophen 325 Mg Tablet) 975 mg PO NOW ONE Stop: 07/25/24 11:24 Last Admin: 07/25/24 11:28 Dose: 975 mg Documented By: JANA Sodium Chloride (Normal Saline 0.9%) 1,000 mls @ 1,000 mls/hr IV BOLUS ONE Stop: 07/25/24 11:08 Last Infusion: 07/25/24 12:17 Dose: Infused Documented By: Admin: 07/25/24 10:22 Dose: 1,000 mls/hr Documented By: RB Sodium Chloride (Normal Saline 0.9%) 1,000 mls @ 1,000 mls/hr IV BOLUS ONE Stop: 07/25/24 13:25 Last Infusion: 07/25/24 13:23 Dose: Infused Documented By: Admin: 07/25/24 12:29 Dose: 1,000 mls/hr Documented By: JANA Sodium Chloride (Normal Saline 0.9%) 1,000 mls @ 500 mls/hr IV BOLUS ONE Stop: 07/25/24 19:34 Last Admin: 07/25/24 17:40 Dose: Not Given Documented By: RB Morphine Sulfate (Morphine 4 Mg/Ml Inj) 4 mg IV NOW ONE Stop: 07/25/24 11:58 Last Admin: 07/25/24 12:23 Dose: 4 mg Documented By: RB Ondansetron HCl (Ondansetron 4 Mg/2 Ml Inj) 4 mg IV NOW ONE Stop: 07/25/24 10:10 Last Admin: 07/25/24 10:22 Dose: 4 mg Documented By: RB Oxycodone HCl (Oxycodone Ir 5 Mg Tablet) 5 mg PO NOW ONE Stop: 07/25/24 17:36 Last Admin: 07/25/24 17:40 Dose: Not Given Documented By: RB Vital Signs Vital signs: Vital Signs - 8 hr 07/25/24 11:00 07/25/24 11:00 07/25/24 11:30 Pulse Rate 64 62 Respiratory Rate 19 19 Blood Pressure 160/81 H Pulse Oximetry 98 99 07/25/24 11:44 07/25/24 11:44 07/25/24 11:46 Pulse Rate 63 Respiratory Rate 10 L Blood Pressure 210/88 H 204/86 H Pulse Oximetry 98 07/25/24 11:46 07/25/24 12:00 07/25/24 12:00 Pulse Rate 61 67 Respiratory Rate 15 18 Blood Pressure 194/66 H Pulse Oximetry 98 99 07/25/24 12:16 07/25/24 12:16 07/25/24 12:30 Pulse Rate 73 Respiratory Rate 17 Blood Pressure 181/83 H 188/85 H Pulse Oximetry 100 07/25/24 12:30 07/25/24 12:45 07/25/24 12:45 Pulse Rate 64 65 Respiratory Rate 20 18 Blood Pressure 185/90 H Pulse Oximetry 97 98 07/25/24 13:00 07/25/24 13:01 07/25/24 13:01 Pulse Rate 62 64 Respiratory Rate 17 19 Blood Pressure 174/80 H Pulse Oximetry 98 98 07/25/24 13:15 07/25/24 13:15 07/25/24 13:30 Pulse Rate 62 Respiratory Rate 21 Blood Pressure 194/85 H 179/83 H Pulse Oximetry 96 07/25/24 13:30 07/25/24 13:45 07/25/24 13:45 Pulse Rate 82 66 Respiratory Rate 22 22 Blood Pressure 170/81 H Pulse Oximetry 97 97 07/25/24 14:00 07/25/24 14:00 07/25/24 14:15 Pulse Rate 61 Respiratory Rate 19 Blood Pressure 159/96 H 158/83 H Pulse Oximetry 96 07/25/24 14:15 07/25/24 14:39 07/25/24 14:40 Pulse Rate 63 70 Respiratory Rate 16 Blood Pressure 157/73 H Pulse Oximetry 96 07/25/24 14:40 07/25/24 14:45 07/25/24 14:45 Pulse Rate 67 61 Respiratory Rate 10 L 10 L Blood Pressure 153/68 H Pulse Oximetry 96 96 07/25/24 15:00 07/25/24 15:00 07/25/24 15:15 Pulse Rate 59 L Respiratory Rate 10 L Blood Pressure 155/72 H 157/77 H Pulse Oximetry 96 07/25/24 15:15 07/25/24 15:30 07/25/24 15:30 Pulse Rate 60 58 L Respiratory Rate 15 13 Blood Pressure 150/74 H Pulse Oximetry 96 96 07/25/24 15:38 07/25/24 15:38 07/25/24 15:45 Pulse Rate 58 L Respiratory Rate 16 Blood Pressure 147/77 H 160/81 H Pulse Oximetry 97 07/25/24 15:45 07/25/24 16:00 07/25/24 16:00 Pulse Rate 57 L 56 L Respiratory Rate 14 12 Blood Pressure 158/71 H Pulse Oximetry 96 96 07/25/24 16:15 07/25/24 16:15 07/25/24 16:30 Pulse Rate 56 L Respiratory Rate 11 L Blood Pressure 169/75 H 148/68 H Pulse Oximetry 96 07/25/24 16:30 07/25/24 16:45 07/25/24 16:45 Pulse Rate 64 57 L Respiratory Rate 22 16 Blood Pressure 160/67 H Pulse Oximetry 97 97 07/25/24 17:00 07/25/24 17:00 07/25/24 17:15 Pulse Rate 56 L Respiratory Rate 22 Blood Pressure 145/65 H 140/64 Pulse Oximetry 96 07/25/24 17:15 07/25/24 17:30 07/25/24 17:30 Pulse Rate 56 L 57 L Respiratory Rate 20 19 Blood Pressure 164/67 H Pulse Oximetry 96 97 07/25/24 17:45 07/25/24 17:45 Pulse Rate 58 L Respiratory Rate 13 Blood Pressure 149/67 H Pulse Oximetry 97 Medical Decision Making Lab Data 07/25/24 10:10 07/25/24 16:40 Labs: Lab Results 07/25/24 07/25/24 07/25/24 Range/Units 10:10 14:35 16:40 WBC 11.1 H (4.5-11.0) X10^3/uL RBC 4.77 (4.0-5.2) X10^6/uL Hgb 14.5 (12.0-16.0) g/dL Hct 42.6 (36-46) % MCV 89.3 (80-100) fL MCH 30.3 (26-34) PG MCHC 33.9 (30-36) % RDW 13.5 (11.6-14.8) % Plt Count 294 (150-400) X10^3/uL Neut % (Auto) 82.3 H (50-75) % Lymph % (Auto) 10.6 L (25-40) % Kane % (Auto) 6.4 (3-14) % Eos % (Auto) 0.1 L (2-4) % Baso % (Auto) 0.6 (0-2) % Neut # (Auto) 9100 H (5395-0153) /uL Lymph # (Auto) 1200 (1324-7695) /uL Kane # (Auto) 700 (0-900) /uL Eos # (Auto) 0 (0-450) /uL Baso # (Auto) 100 (0-100) /uL PT 11.6 (9.4-12.5) SECONDS INR 1.0 (0.9-1.3) APTT 33 (25.1-36.5) SECONDS Sodium 133 L 133 L (137-145) mmol/L Potassium 4.1 3.4 (3.4-5.1) mmol/L Chloride 97 L 103 (98-107) mmol/L Carbon Dioxide 28 27 (22-32) mmol/L BUN 14 12 (7-17) mg/dL Creatinine 0.73 0.69 (0.52-1.04) mg/dL Estimated GFR > 60 > 60 (>60) mL/min BUN/Creatinine Ratio 19.2 17.4 (6-22) Glucose 122 H 146 H (80-110) mg/dL Calcium 9.5 8.2 L (8.4-10.2) mg/dL Total Bilirubin 0.9 (0.2-1.3) mg/dL AST 28 (14-36) IU/L ALT 16 (<35) IU/L Alkaline Phosphatase 93 (38-126) U/L Total Protein 7.2 (6.3-8.2) g/dL Albumin 4.3 (3.5-5.0) g/dL Globulin 2.9 (1.7-4.1) g/dL Albumin/Globulin Ratio 1.5 (1.0-2.8) Lipase 361 H (23-300) U/L Urine RBC 1-5/hpf (0-5/HPF) Urine WBC 10-30/hpf H (0-5/HPF) Ur Squamous Epith Cells 1-5 /hpf (0-5/HPF) Urine Bacteria Moderate (10-30) H (None) Ur Culture Indicated? Specimen cultured Vol Urine Centrifuged 10ml (spun) Urine Dip Bedside Urine Glucose Negative Bedside Urine Bilirubin - Negative Bedside Urine Ketone ++ 40 Urine Specific [place] 1.015 Bedside Urine Occult Blood - Negative Bedside Urine pH 6.0 Bedside Urine Protein +/- 15 Bedside Urine Urobilinogen - Negative Bedside Urine Nitrite - Negative Bedside Urine Leukocytes +/- 15 Esterase Point of care testing: Urine Dip Bedside Urine Glucose Negative Bedside Urine Bilirubin - Negative Bedside Urine Ketone ++ 40 Urine Specific [place] 1.015 Bedside Urine Occult Blood - Negative Bedside Urine pH 6.0 Bedside Urine Protein +/- 15 Bedside Urine Urobilinogen - Negative Bedside Urine Nitrite - Negative Bedside Urine Leukocytes +/- 15 Esterase Imaging Data CTA - brain/neck: Radiologist's Impression: Close Head/Neck CTA (Signed) Ezequiel Mcclure - 07/25/[address] (Signed) Jamil Fatima - 07/25/24 Mammogram Screening (Signed) Mathieu Burciaga - 02/22/[address] (Signed) Isabel Hodge - 06/04/[address] (Signed) Isabel Hodge - 06/04/23 Mammogram Screening (Signed) Dayday Nathan - 01/23/23 Renal MRI (Signed) Ashish Macias - 12/29/22 Renal Ultrasound (Signed) Ashish Macias - 12/20/22 Bone Densitometry (Signed) Danny Daniels - 12/20/22 Ankle X-Ray (Signed) Umberto Duran - 05/27/22 Telemetry Strips 02/01/22 Mammogram Screening (Signed) Mathieu Burciaga - 01/05/22 Chest X-Ray (Signed) Jacob Rubalcava - 12/16/21 Knee X-Ray (Signed) Antolin Scruggs - 11/23/21 Hip X-Ray (Signed) Liz Contreras - 11/23/21 Mammogram Screening (Signed) Dami lAlen - 01/04/21 Lumbar Spine MRI (Signed) Anali Richardson - 01/31/20 Mammogram Screening (Signed) Dami Allen - 01/02/20 Mammogram Screening (Signed) Geovanna Frazier - 11/30/18 Mammogram Screening (Signed) Jamal Shields - 11/29/[address] [address] [address] Scan Report Signed Patient: Mary Grace Duff MR#: [id number] : 1945 Acct:[id number] Age/Sex: 78 / F Date of Service: 07/25/24 Loc: ED Accession Number: [id number] Procedure: CT angio head and neck Ordering Provider: Nicole Barrios D.O. PROCEDURE: CT ANGIO HEAD AND NECK INDICATIONS: had SAH TECHNIQUE: After the administration of intravenous contrast, 1 mm thick sections acquired from the aortic arch through the [place]. 3-dimensional kazyxzy-npplxtfzo-ghpruemsdk (MIP) and/or volume rendering reformats were acquired of the central intracranial vasculature and neck separately. For radiation dose reduction, the following was used: automated exposure control, adjustment of mA and/or kV according to patient size. COMPARISON: [facility], CT, CT HEAD/BRAIN WO CON, 06/04/2023, 21:35. [facility], CT, CT HEAD/BRAIN WO CON, 07/25/2024, 10:27. FINDINGS: Image quality: Limited by bolus timing, with venous contamination. There is streak artifact seen through the level of the shoulders. BRAIN: CSF spaces: Ventricles are normal in size and shape. Basal cisterns are patent. No extra-axial fluid collections. Brain: Please see the accompanying noncontrast head CT report. Skull and face: Calvarium and facial bones appear intact, without suspicious lesions. Orbits appear normal. Sinuses: Sinuses and mastoids are clear. HEAD CT ANGIOGRAPHY: Anterior circulation: Intracranial internal carotid arteries are normal in size and flow. The flow within the paired anterior cerebral arteries is normal and symmetric. The flow within the middle cerebral arteries is normal and symmetric. The anterior communicating artery is seen. No aneurysms are seen. Posterior circulation: In this patient with this given history, scrutiny is given to the basilar artery. No basilar artery aneurysm is seen, although there is a focus of hemorrhage seen immediately adjacent to the left aspect of the basilar artery, as on series 6, image 118 and on series 5, image 115. Flow within the posterior cerebral arteries is normal and symmetric. No aneurysms are seen. NECK CT ANGIOGRAPHY: Carotid system: The great vessels demonstrate a conventional anatomy as they arise from the aortic arch. The origins of the common carotid arteries appear patent. The common carotid arteries demonstrate normal caliber and courses. The bifurcation regions are both widely patent. The internal carotid arteries demonstrate normal calibers and courses. Posterior circulation: The origins of the vertebral arteries both appear widely patent. The more superior extracranial portions of both vertebral arteries also demonstrate normal courses and calibers. They join to form a normal appearing basilar artery. Soft tissues: Visualized neck soft tissues demonstrate no suspicious abnormalities. Bones: No suspicious bony lesions. Visualized cervical spine appears normally aligned. IMPRESSION: No aneurysm is seen. There is a small amount of hemorrhage again seen along the left aspect of the basilar artery, yet without aneurysm at this site. No significant intracranial arterial abnormality is seen. No significant abnormality is seen within the arteries of the neck. Please correlate with prior outside imaging. Please consider short-term follow-up. Any quantitative measurements of stenosis were performed using NASCET criteria. Dictated by: Ezequiel Mcclure M.D. on 07/25/2024 at 10:58 Approved by: Ezequiel Mcclure M.D. on 07/25/2024 at 11:04 CT scan - head: Radiologist's Impression: Mary Grace Duff??78??F??1945 ? Allergy/Adv: ciprofloxacin, nitrofurantoin, Sulfa (Sulfonamide Antibiotics) (More??) Close Head CT (Signed) Trevor Rowell - 07/25/24 Head/Neck CTA (Signed) Ezequiel Mcclure - 07/25/[address] (Signed) Jamil Fatima - 07/25/24 Mammogram Screening (Signed) Mathieu Burciaga - 02/22/[address] (Signed) Isabel Hodge - 06/04/[address] (Signed) Isabel Hodge - 06/04/23 Mammogram Screening (Signed) Dayday Nathan - 01/23/23 Renal MRI (Signed) Ashish Macias - 12/29/22 Renal Ultrasound (Signed) Ashish Macias - 12/20/22 Bone Densitometry (Signed) Danny Daniels - 12/20/22 Ankle X-Ray (Signed) Umberto Duran - 05/27/22 Telemetry Strips 02/01/22 Mammogram Screening (Signed) Mathieu Burciaga - 01/05/22 Chest X-Ray (Signed) Jacob Rubalcava - 12/16/21 Knee X-Ray (Signed) Antolin Scruggs - 05/10/22 Hip X-Ray (Signed) Liz Contreras - 11/23/21 Mammogram Screening (Signed) Dami Allen - 01/04/21 Lumbar Spine MRI (Signed) Anali Richardson - 01/31/20 Mammogram Screening (Signed) Allen,Dami - 01/02/20 Mammogram Screening (Signed) Geovanna Frazier - 11/30/18 Mammogram Screening (Signed) Jamal Shields - 11/29/17 Launch?Image [address] [address] [address] Scan Report Signed Patient: Mary Grace Duff MR#: [id number] : 1945 Acct:[id number] Age/Sex: 78 / F Date of Service: 07/25/24 Loc: ED Accession Number: [id number] Procedure: CT head/brain wo con Ordering Provider: Nicole Barrios D.O. PROCEDURE: CT HEAD/BRAIN WO CON INDICATIONS: s/p SAH, decreasing activity, persistent march, na TECHNIQUE: Noncontrast 4.5 mm thick angled axial sections acquired from the foramen magnum to the vertex, with coronal and sagittal reformats. For radiation dose reduction, the following was used: automated exposure control, adjustment of mA and/or kV according to patient size. COMPARISON: [facility], CT, CT HEAD/BRAIN WO CON, 06/04/2023, 21:35. FINDINGS: Image quality: Diagnostic. CSF spaces: Basal cisterns are patent. There is a small amount intraventricular hemorrhage in the posterior horns of the lateral ventricles, layering posteriorly. There is density along the basilar artery which may potentially represent hyperdense basilar artery or focal hemorrhage subjacent to the basilar artery. There is minimal density along the tentorium possibly representing very thin subdural the tentorium.. The ventricles are symmetric in size and shape. Brain: No intracranial bleeds or masses. There is cerebral volume loss for age, with resultant ventricular and sulcal prominence. There are periventricular and deep white matter chronic small vessel ischemic changes. There is intracranial internal carotid artery atherosclerosis. Skull and face: Calvarium and visualized facial bones appear intact, without suspicious lesions. Sinuses: Visualized sinuses and mastoids are clear. IMPRESSION: 1. Prior studies are not available for comparison. 2. There is very minimal subtle intraventricular hemorrhage. 3. Very minimal subtle subdural hemorrhage along the tentorium. 4. Density potentially involving the basilar artery or representing small clot subjacent to the basilar artery. Comment: Recommend CTA head and neck. Comment: Findings were discussed with Dr. Barrios on 07/25/2024 at 1113 hours Dictated by: Jamil Fatima M.D. on 07/25/2024 at 11:05 Approved by: Jamil Fatima M.D. on 07/25/2024 at 11:[address]: Radiologist's Impression: Mary Grace Duff??78??F??1945 ? Allergy/Adv: ciprofloxacin, nitrofurantoin, Sulfa (Sulfonamide Antibiotics) (More??) Close Head CT (Signed) Trevor Rowell - 07/25/24 Head/Neck CTA (Signed) Ezequiel Mcclure - 07/25/[address] (Signed) Jamil Fatima - 07/25/24 Mammogram Screening (Signed) Mathieu Burciaga - 02/22/[address] (Signed) Isabel Hodge - 06/04/[address] (Signed) Isabel Hodge - 06/04/23 Mammogram Screening (Signed) Dayday Nathan - 01/23/23 Renal MRI (Signed) Ashish Macias - 12/29/22 Renal Ultrasound (Signed) Ashish Macias - 12/20/22 Bone Densitometry (Signed) Danny Daniels - 12/20/22 Ankle X-Ray (Signed) Umberto Duran - 05/27/22 Telemetry Strips 02/01/22 Mammogram Screening (Signed) Mathieu Burciaga - 01/05/22 Chest X-Ray (Signed) Jacob Rubalcava - 12/16/21 Knee X-Ray (Signed) Antolin Scruggs - 11/23/21 Hip X-Ray (Signed) Liz Contreras - 11/23/21 Mammogram Screening (Signed) Dami Allen - 01/04/21 Lumbar Spine MRI (Signed) Anali Richardson - 01/31/20 Mammogram Screening (Signed) Dami Allen - 01/02/20 Mammogram Screening (Signed) Geovanna Frazier - 11/30/18 Mammogram Screening (Signed) Jamal Shields - 11/29/17 Launch?Image [address] [address] [address] Scan Report Signed Patient: Mary Grace Duff MR#: [id number] : 1945 Acct:[id number] Age/Sex: 78 / F Date of Service: 07/25/24 Loc: ED Accession Number: [id number] Procedure: CT head/brain wo con Ordering Provider: Nicole Barrios D.O. PROCEDURE: CT HEAD/BRAIN WO CON INDICATIONS: repeat for comparison. TECHNIQUE: Noncontrast 4.5 mm thick angled axial sections acquired from the foramen magnum to the vertex, with coronal and sagittal reformats. For radiation dose reduction, the following was used: automated exposure control, adjustment of mA and/or kV according to patient size. COMPARISON: [facility], CT, CT HEAD/BRAIN WO CON, 07/25/2024, 10:27. FINDINGS: Image quality: Diagnostic. CSF spaces: Similar appearance of blood products layering within the posterior horns of the lateral ventricles. Basal cisterns are patent. Redemonstration of minimal subdural hemorrhage along the tentorium on the left (4/30). Few areas of trace subarachnoid hemorrhage, for example along the right temporal lobe (4/28).. The ventricles are symmetric in size and shape. Brain: No intracranial bleeds or masses. There is cerebral volume loss for age, with resultant ventricular and sulcal prominence. There are periventricular and deep white matter chronic small vessel ischemic changes. There is intracranial internal carotid artery atherosclerosis. Skull and face: Calvarium and visualized facial bones appear intact, without suspicious lesions. Sinuses: Visualized sinuses and mastoids are clear. IMPRESSION: Redemonstration of mild intracranial hemorrhage including layering within the ventricles, along the left tentorium and right temporal lobe. These are stable in appearance compared to prior. Dictated by: Trevor Rowell M.D. on 07/25/2024 at 16:21 Approved by: Trevor Rowell M.D. on 07/25/2024 at 16:24 MDM Narrative Medical decision making narrative: 78-year-old female presents for kind of a slow decrease in activity since discharge from [facility] for what sounds like a traumatic subarachnoid hemorrhage. Patient has had some persistent headaches does not describe them as rapidly worsening but did have 1 episode of vomiting the 1st day home but has not had any persistent. No other acute neurologic changes but patient has been notes she has been having decreasing activity with less and less walking each day stopped walking today she has been purposefully with holding some food and water because she does not want to have to get up to go to the bathroom. She also notes it makes her feel very nauseated. She has been taking Zofran PRN and oxycodone as well. Head CT prior study isn't available for comparison minimal subtle intraventricular hemorrhage minimal subtle subdural hemorrhage along the tentorium. Density potentially involving basilar artery representing small clots subjacent to basilar artery Dr. Chuck Fatima cultures results recommended CTA head and neck concern for potential clot. This was ordered aneurysm is seen small amount of hemorrhage along the left aspect basilar artery get without aneurysm of the site no significant intracranial changes otherwise of the head or neck. Labs labs show white count 11.1, hemoglobin is 14 platelets are 294, sodium shows 133 potassium 4.1 chloride 97 CO2 is 28 BUN 14 creatinine 0.73 glucose of 122 these are negative lipase is mildly up at 361. Urine Patient received 1 L normal saline as well as Zofran. Patient was given a dose of morphine Records were requested when patient 1st arrived several attempts to re-contact without any imaging for comparison or reports. Call to located within [facility] suspect patient's bleed is smaller but has not been able to confirm this also patient's blood pressure initially was 140s but has increased to 190s occasional 200 systolic. Discussed consult with Neurosurgery for any new bleed or if this looks like old and any adjustment of medications or other recommendations. 1304 Spoke with coordinator at [facility]. Will page out. 1531 Dr.Evgeniya Botello, neurosurgery: Talked with Neurology suspect maybe some TBI with headache and nausea persisting she did ask for the coordinator to refer to the TBI clinic. We would like repeat head CT at 4:00 a.m. if stable patient is to follow up in 2 weeks for repeat scan would recommend giving some fluids and recheck sodium prefer sodium 135 can give normal saline can also give oral sodium. Patient can follow up outpatient agrees with plan to better control patient's nausea. STrict return precautions. Discharge Plan Departure Patient Disposition: Home Clinical Impression: Traumatic subarachnoid hemorrhage, Dehydration, Nausea Activity Restrictions/Additional Instructions: It is important that you follow-up with your physician for recheck UR recommended to have a repeat head CT in 2 weeks, it is also recommended to follow your sodium and make sure that it was not continuing to drop. I would recommend eating high sodium foods. Please keep your appointment to follow up with Dr. Steve on Monday. I spoke with neurosurgery today they would like for you to follow up in the next 2 weeks. They have asked their coordinator to send a referral for the traumatic brain injury clinic. It is important that you continue to eat and drink regularly I would recommend that you take ondansetron or Zofran 1 tablet every 6 hours for the next 24-48 hours and then began to space it out. If you find the narcotics or making you nauseated please take it ondansetron before taking any oxycodone or narcotic. If this is inadequate for your nausea you can take Reglan 1 tablet every 6 hours as needed. It is also important that you take a stool softener such as Senokot you are prescribed or MiraLax daily until your stooling regularly particularly when you are taking narcotics. Please return for any fevers, any worsening headaches, any new nausea or vomiting, any changes to mentation, new weakness numbness difficulty with speech or other new acute neurologic changes any new loss of bowel or bladder control, chest pain or shortness of breath or other new or concerning changes. Prescriptions: New oxycodone 5 mg tablet 5 mg PO Q6H PRN (Reason: pain) Qty: 14 0RF ondansetron 4 mg tablet,disintegrating 4 mg PO Q6H PRN (Reason: nausea and vomiting) Qty: 14 0RF metoclopramide HCl [Reglan] 10 mg tablet 10 mg PO Q6H PRN (Reason: nausea and vomiting) Qty: 10 0RF No Action oxybutynin chloride 5 mg tablet extended release 24hr 5 mg PO DAILY Qty: 30 2RF zolpidem 5 mg tablet 5 mg PO BEDTIME PRN (Reason: insomnia) Qty: 30 0RF atorvastatin 10 mg tablet See Rx Instructions .ROUTE .COMPLEX Qty: 90 3RF Dose Instruction: TAKE 1 TABLET DAILY Rx Instructions: TAKE 1 TABLET DAILY metoprolol succinate 25 mg tablet extended release 24 hr 25 mg PO DAILY Qty: 90 3RF duloxetine 40 mg capsule,delayed release(DR/EC) 40 mg PO DAILY Qty: 90 3RF cholecalciferol (vitamin D3) [Vitamin D3] 25 mcg (1,000 unit) Capsule 25 mcg PO DAILY Referrals: Charline Steve MD [Primary Care Provider] - Stand Alone Forms: Patient Portal/API/Survey
[2024-07-25] MEDS: ONDANSETRON 4 MG/2 ML INJ IV (10:22)
[2024-07-25] MEDS: SODIUM CHLORIDE 0.9% 1,000 ML 1000 ML IV ×2 (10:22→12:29)
[2024-07-25 10:25] LABS: Add Manual Diff / Slide Review NO; Basophils Absolute Auto 100 /uL (0-100); Basophils Percent Auto 0.6 % (0-2); Eosinophils Absolute Auto 0 /uL (0-450); Eosinophils Percent Auto 0.1 % (2-4); Hematocrit 42.6 % (36-46); Hemoglobin 14.5 g/dL (12.0-16.0); Lymphocytes Absolute Auto 1200 /uL (1100-4500); Lymphocytes Percent Auto 10.6 % (25-40); Mean Corpuscular HGB Conc 33.9 % (30-36); Mean Corpuscular Hemoglobin 30.3 PG (26-34); Mean Corpuscular Volume 89.3 fL (80-100); Monocytes Absolute Auto 700 /uL (0-900); Monocytes Percent Auto 6.4 % (3-14); Neutrophils Absolute Auto 9100 /uL (1500-7000); Neutrophils Percent Auto 82.3 % (50-75); Platelet Count 294 X10^3/uL (150-400); Red Blood Cell Count 4.77 X10^6/uL (4.0-5.2); Red Cell Distribution Width 13.5 % (11.6-14.8); White Blood Cell Count 11.1 X10^3/uL (4.5-11.0)
[2024-07-25 10:32] LABS: Prothrombin Time 11.6 SECONDS (9.4-12.5)
[2024-07-25 10:34] LABS: PTT Partial Thromboplastin Tim 33 SECONDS (25.1-36.5)
[2024-07-25 10:37] LABS: Alanine Aminotransferase 16 IU/L (<35); Albumin 4.3 g/dL (3.5-5.0); Albumin Globulin Ratio 1.5 (1.0-2.8); Alkaline Phosphatase 93 U/L (38-126); Aspartate Aminotransferase 28 IU/L (14-36); BUN Creatinine Ratio 19.2 (6-22); Bilirubin Total 0.9 mg/dL (0.2-1.3); Blood Urea Nitrogen 14 mg/dL (7-17); Calcium 9.5 mg/dL (8.4-10.2); Carbon Dioxide 28 mmol/L (22-32); Chloride 97 mmol/L (98-107); Estimated Glomerular Filt Rate > 60 mL/min (>60); Globulin 2.9 g/dL (1.7-4.1); Glucose 122 mg/dL (80-110); Lipase 361 U/L (23-300); Potassium 4.1 mmol/L (3.4-5.1); Sodium 133 mmol/L (137-145); Total Protein 7.2 g/dL (6.3-8.2)
[2024-07-25 10:49] LABS: HEMOLYSIS 60 (0-50)
--- NOTE | 2024-07-25 11:18 | DI.CT.S_ITS ---
PROCEDURE: CT ANGIO HEAD AND NECK INDICATIONS: had SAH TECHNIQUE: After the administration of intravenous contrast, 1 mm thick sections acquired from the aortic arch through the [place] of [place]. 3-dimensional mmzjqdo-ahqxnborc-nvudgilcjh (MIP) and/or volume rendering reformats were acquired of the central intracranial vasculature and neck separately. For radiation dose reduction, the following was used: automated exposure control, adjustment of mA and/or kV according to patient size. COMPARISON: [facility], CT, CT HEAD/BRAIN WO CON, 06/04/2023, 21:35. [facility], CT, CT HEAD/BRAIN WO CON, 07/25/2024, 10:27. FINDINGS: Image quality: Limited by bolus timing, with venous contamination. There is streak artifact seen through the level of the shoulders. BRAIN: CSF spaces: Ventricles are normal in size and shape. Basal cisterns are patent. No extra-axial fluid collections. Brain: Please see the accompanying noncontrast head CT report. Skull and face: Calvarium and facial bones appear intact, without suspicious lesions. Orbits appear normal. Sinuses: Sinuses and mastoids are clear. HEAD CT ANGIOGRAPHY: Anterior circulation: Intracranial internal carotid arteries are normal in size and flow. The flow within the paired anterior cerebral arteries is normal and symmetric. The flow within the middle cerebral arteries is normal and symmetric. The anterior communicating artery is seen. No aneurysms are seen. Posterior circulation: In this patient with this given history, scrutiny is given to the basilar artery. No basilar artery aneurysm is seen, although there is a focus of hemorrhage seen immediately adjacent to the left aspect of the basilar artery, as on series 6, image 118 and on series 5, image 115. Flow within the posterior cerebral arteries is normal and symmetric. No aneurysms are seen. NECK CT ANGIOGRAPHY: Carotid system: The great vessels demonstrate a conventional anatomy as they arise from the aortic arch. The origins of the common carotid arteries appear patent. The common carotid arteries demonstrate normal caliber and courses. The bifurcation regions are both widely patent. The internal carotid arteries demonstrate normal calibers and courses. Posterior circulation: The origins of the vertebral arteries both appear widely patent. The more superior extracranial portions of both vertebral arteries also demonstrate normal courses and calibers. They join to form a normal appearing basilar artery. Soft tissues: Visualized neck soft tissues demonstrate no suspicious abnormalities. Bones: No suspicious bony lesions. Visualized cervical spine appears normally aligned. IMPRESSION: No aneurysm is seen. There is a small amount of hemorrhage again seen along the left aspect of the basilar artery, yet without aneurysm at this site. No significant intracranial arterial abnormality is seen. No significant abnormality is seen within the arteries of the neck. Please correlate with prior outside imaging. Please consider short-term follow-up. Any quantitative measurements of stenosis were performed using NASCET criteria. Dictated by: Ezequiel Mcclure M.D. on 07/25/2024 at 10:58 Approved by: Ezequiel Mcclure M.D. on 07/25/2024 at 11:04
[2024-07-25] MEDS: ACETAMINOPHEN 325 MG TABLET 975 MG PO (11:28)
--- NOTE | 2024-07-25 11:48 | PC.NURSE ---
Provider informed about patient new elevated blood pressure. No new orders at this time.
[2024-07-25] MEDS: MORPHINE 4 MG/ML INJ IV (12:23)
--- NOTE | 2024-07-25 15:02 | DI.CT.S_ITS ---
PROCEDURE: CT HEAD/BRAIN WO CON INDICATIONS: repeat for comparison. TECHNIQUE: Noncontrast 4.5 mm thick angled axial sections acquired from the foramen magnum to the vertex, with coronal and sagittal reformats. For radiation dose reduction, the following was used: automated exposure control, adjustment of mA and/or kV according to patient size. COMPARISON: [facility], CT, CT HEAD/BRAIN WO CON, 07/25/2024, 10:27. FINDINGS: Image quality: Diagnostic. CSF spaces: Similar appearance of blood products layering within the posterior horns of the lateral ventricles. Basal cisterns are patent. Redemonstration of minimal subdural hemorrhage along the tentorium on the left (4/30). Few areas of trace subarachnoid hemorrhage, for example along the right temporal lobe (4/).. The ventricles are symmetric in size and shape. Brain: No intracranial bleeds or masses. There is cerebral volume loss for age, with resultant ventricular and sulcal prominence. There are periventricular and deep white matter chronic small vessel ischemic changes. There is intracranial internal carotid artery atherosclerosis. Skull and face: Calvarium and visualized facial bones appear intact, without suspicious lesions. Sinuses: Visualized sinuses and mastoids are clear. IMPRESSION: Redemonstration of mild intracranial hemorrhage including layering within the ventricles, along the left tentorium and right temporal lobe. These are stable in appearance compared to prior. Dictated by: Trevor Rowell M.D. on 07/25/2024 at 16:21 Approved by: Trevor Rowell M.D. on 07/25/2024 at 16:24
[2024-07-25 15:50] LABS: Bacteria Urine Moderate (10-30); Culture Indicated Urine Specimen Cultured; RBC Urine 1-5/HPF (0-5/HPF); Squamous Epithelial Cell Urine 1-5 /HPF (0-5/HPF); Urine Volume 10mL (spun); WBC Urine 10-30/HPF (0-5/HPF)
[2024-07-25 16:58] LABS: BUN Creatinine Ratio 17.4 (6-22); Blood Urea Nitrogen 12 mg/dL (7-17); Calcium 8.2 mg/dL (8.4-10.2); Carbon Dioxide 27 mmol/L (22-32); Chloride 103 mmol/L (98-107); Estimated Glomerular Filt Rate > 60 mL/min (>60); Glucose 146 mg/dL (80-110); HEMOLYSIS < 15 (0-50); Potassium 3.4 mmol/L (3.4-5.1); Sodium 133 mmol/L (137-145)
--- NOTE | 2024-07-25 18:01 | CM.SWNOTE ---
ED REGISTERED MASSAGE THERAPIST Note REGISTERED MASSAGE THERAPIST receives consult from ED provider for HH referral. Patient is 78 y/o female who presents to ED due to concern for decreased LOC since recent GLF leading to admission at [facility] on 07/17/24. Patient diagnosed with traumatic subarachnoid hemorrhage. Patient d/c'd from [facility] on 07/20/24. Patient's PCP is Dr. Steve, patient has upcoming PCP appt next week, patient has Medicare and for Life insurance. REGISTERED MASSAGE THERAPIST enters room to meet with patient, present in room is patient and spouse Dano. Patient presents as A/Ox4, patient presents with bruises and lacerations on face from recent GLF. It is reported that since patient's d/c from [facility] patient has had limited mobility strength. It is reported that patient can ambulate from the couch to the bed and the bed to the bathroom. Patient endorses that she has been somewhat managing ADLs but presents with generalized weakness and decreased mobility. Patient denies DMEs at home other than shower bars and walking sticks, patient states she has not been using DME. REGISTERED MASSAGE THERAPIST discusses HH, patient denies preference for HH agency. REGISTERED MASSAGE THERAPIST discusses PT, OT and RN services. REGISTERED MASSAGE THERAPIST submits referral to [facility] due to agency rotation. REGISTERED MASSAGE THERAPIST e-faxes signed F2F, [facility] and [facility]. REGISTERED MASSAGE THERAPIST calls [facility] regarding referral. It is reported that they will review referral in the morning. REGISTERED MASSAGE THERAPIST provides patient and spouse a list of DME resources, senior resource guide and brochure for [facility]. REGISTERED MASSAGE THERAPIST informs Dr. Steve's office of patient's presentation to the ED and of [facility] referral. Patient's spouse endorses plan to go to [facility] tomorrow for DME. Plan: patient to d/c to home with spouse upon medical clearance, [facility] to f/u with patient with new referral in place, patient to f/u with PCP next week. WILLOW Armendariz
== END 2024-07-25 18:04 | disposition home or self-care (01) ==
PROVIDERS: Emergency Provider Emergency Medicine; PCP Family Medicine
DX: S06.6XAA Traumatic subarachnoid hemorrhage with loss of consciousness status unknown, initial encounter (principal); E86.0 Dehydration; R11.0 Nausea
CPT/HCPCS: 36415; 70450; 70496; 70498; 80048; 80053; 81003; 81015; 83690; 85025; 85610; 85730; 87086; 96361; 96374; 96375; 99284; J2270; J2405; Q9967

== ENCOUNTER 2024-07-26 09:30 | Emergency (ER) | payer MEDICARE, OTHER, SELFPAY ==
[2024-07-26] VITALS (12 sets, daily range): BP systolic 149–203; BP diastolic 66–86; PULSE 59–100; RESP 12–22; TEMP 36.8; O2SAT 94–100
--- NOTE | 2024-07-26 09:44 | DI.CT.S_ITS ---
PROCEDURE: CT CERVICAL SPINE WO CON INDICATIONS: fall, recent traumatic SAH, seen yesterday here TECHNIQUE: Noncontrast 3 mm thick sections acquired from the skull base to the T4 level. Sagittal and coronal reformats were then constructed. For radiation dose reduction, the following was used: automated exposure control, adjustment of mA and/or kV according to patient size. COMPARISON: [facility], CT, CT CERVICAL SPINE WO CON, 06/04/2023, 21:35. FINDINGS: Image quality: Excellent. Bones: No fractures or dislocations. Mild multilevel degenerative changes of the cervical spine. Visualized superior ribs are intact. Soft tissues: Prevertebral soft tissues are normal in thickness. No paravertebral hematomas. No apical pneumothoraces. IMPRESSION: No displaced fracture or traumatic subluxation. Dictated by: Trevor Rowell M.D. on 07/26/2024 at 10:22 Approved by: Trevor Rowell M.D. on 07/26/2024 at 10:24
--- NOTE | 2024-07-26 09:46 | ED_ITS ---
HPI - Fall General Chief Complaint: Fall Stated Complaint: Increased Confusion, Pain Time Seen by Provider: 07/26/24 09:44 Source: patient, family (), EMS, RN notes reviewed and old records reviewed Mode of arrival: EMS Limitations: no limitations History of Present Illness HPI Narrative: 78-year-old female history of hypertension, dyslipidemia, recent traumatic subarachnoid hemorrhage was hospitalized at [facility] discharged home the Monday and has been back for 6 days. Patient was seen here yesterday for sort of a slow to crying has been having persistent nausea and headaches and had workup with repeat head CTs and discussion with Neurosurgery. states she was doing well last night at home they sleep in separate rooms and about 2:00 a.m. in the morning he heard a thump. He checked suspect that she fell and has been up overnight as she had removed some clothes that were wet but there was no wet spots on the better elsewhere and has been back in bed. Patient he states this morning took her morning medications including Zofran and oxycodone but later attempted to take her oral regular medications and had some dry heaves. He states okay she has been a little bit more confused this morning than yesterday. Patient is unsure if she had a fall. She complains of headache similar to yesterday. Denies any new vision changes denies any chest pain or shortness of breath had some dry heaves but no other GI or urinary symptoms. Patient was ambulating well yesterday has not attempted so far today but no weakness in her extremities or new facial droop. She did have her morning medications including her blood pressure medications but may have vomited that up. Has allergies to Cipro, nitrofurantoin and sulfa. Former smoker, no regular alcohol no recreational drugs. Dr. Steve is her primary care physician. Related Data Home Medications Medication Instructions Recorded Confirmed cholecalciferol (vitamin D3) 25 25 mcg PO DAILY 09/08/20 06/28/24 mcg (1,000 unit) capsule (Vitamin D3) Previous Rx's Medication Instructions Recorded zolpidem 5 mg tablet 5 mg PO BEDTIME PRN insomnia #30 12/04/23 tabs atorvastatin 10 mg tablet See Rx Instructions .Route 01/17/24 .COMPLEX #90 tabs metoprolol succinate 25 mg 25 mg PO DAILY #90 tabs 06/17/24 tablet,extended release 24 hr oxybutynin chloride 5 mg 5 mg PO DAILY #30 tabs 06/28/24 tablet,extended release 24 hr duloxetine 40 mg capsule,delayed 40 mg PO DAILY #90 caps 07/02/24 release metoclopramide HCl 10 mg tablet 10 mg PO Q6H PRN nausea and 07/25/24 (Reglan) vomiting #10 tabs ondansetron 4 mg disintegrating 4 mg PO Q6H PRN nausea and 07/25/24 tablet vomiting #14 tabs oxycodone 5 mg tablet 5 mg PO Q6H PRN pain #14 tabs 07/25/24 Allergies Allergy/AdvReac Type Severity Reaction Status Date / Time ciprofloxacin [CIPROFLOXACIN] Allergy Severe attacked Verified 07/26/24 09:36 tendon on knee nitrofurantoin Allergy Severe made very Verified 07/26/24 09:36 [NITROFURANTOIN] weak Sulfa (Sulfonamide AdvReac Unknown father has Verified 07/26/24 09:36 Antibiotics) a history [SULFA (SULFONAMIDE of skin ANTIBIOTICS)] sheddingwhen taking sulfa drugs Review of Systems Review of Systems ROS Unobtainable: All systems reviewed & are unremarkable except as noted in HPI and below Patient History Medical History Bruises easily Fibromyalgia History of UTI Urinary frequency Acid reflux Arthritis Hyperlipidemia Ovarian cyst (~2002) Abnormal Pap smear of cervix History of urinary incontinence Hemorrhoid Depression Essential hypertension Recurrent UTI Surgical History Anesthesia Lipoma History of hysterectomy (~2002) Family History Father History of heart disease Hyperlipidemia Hypertension Stroke Tuberculosis Mother Cancer Grandfather Cancer Grandfather Fall Grandmother History of heart disease Social History household members: spouse Smoking Status: Former smoker alcohol intake: current Smoking Status: Former smoker alcohol intake frequency: 0-2 drinks per day Exam Narrative Exam Narrative: GEN: Patient appears in mild distress. Patient is alert she was conversant but I would say she was slightly more confused or less able to give history that yesterday. Does follow commands well. HEAD: No evidence of trauma, no raccoon/Pace sign. NECK: Nontender, painless range of motion, trachea midline, no midline tenderness. EYES: PERRLA, EOMI ENT: Patient ecchymosis periorbital of the right cheek and chin with a healing abrasion that is scabbed. Mostly greenish discoloration no new ecchymosis as compared to yesterday. Trachea is midline, TM's are normal no hemotypanum, Nares are clear, no septal hematoma, no dental or oral injury, airway is normal and with normal occlusion, No bony tenderness RESP: Chest is nontender and has symmetric movement, no ecchymosis, breath sounds are normal no crackles, wheezes or rales CVS: Heart sounds are normal, no murmur noted, No JVD. ABG/GI: Nontender, soft, normal bowel sounds, no distention, no organomegaly, pelvic rock is negative NEURO: Oriented AOx3, neuro is grossly intact, sensation and motor is normal all 4 extremities moving, cranial nerves II through XII are intact, GCS is 14 PSYCH: Normal mood and affect SKIN: Intact, warm and dry, no crepitus and without decubitus BACK: No CVA tenderness, no vertebral tenderness, no step-off's, no crepitus EXT: Atraumatic, hips are nontender, no pedal edema, normal color and temperature, normal range of motion of extremities with normal tendon exam, 2+ pulses in all four extremities Initial Vital Signs Initial Vital Signs: Vital Signs Temperature 98.3 F 07/26/24 09:32 Pulse Rate 100 H 07/26/24 09:32 Respiratory Rate 16 07/26/24 09:32 Blood Pressure 203/86 H 07/26/24 09:32 Pulse Oximetry 98 07/26/24 09:32 Oxygen Delivery Method Room Air 07/26/24 09:32 Procedures Lumbar Puncture Time Out Performed: Yes Patient Position: left lateral decubitus Skin Prep: Povidone-Iodine 1% Local Anesthetic: lidocaine 2% Amount of anesthesia used (mL): 5 Spinal Needle Gauge: 22G Interspace Used: L3-L4 Opening Pressure (cmH20): 33 Fluid Initially Obtained: clear and other (yellow) Complications: none Additional Comments: Fluid was obtained. Had discussed with [facility], they did not need cell count but fluid was walked to lab by staff. Course Orders Ordered: ED Orders 07/26/24 09:15 CBC Auto Diff [Complete Blood Count AUTO DIFF] Stat CMP [Comprehensive Metabolic Panel] Stat Lipase Stat PTT Partial Thromboplastin Amandeep Stat Prothrombin Time INR Stat 07/26/24 09:44 CT cervical spine wo con Stat CT head/brain wo con Stat Chest [XR chest 1V] Stat 07/26/24 13:55 HOLD TUBE CSF Stat Sodium Chloride (Normal Saline 0.9%) 1,000 mls @ 500 mls/hr IV BOLUS PRN PRN Reason: Fluid replacement Last Admin: 07/26/24 13:56 Dose: 175 mls/hr Documented By: TC Discontinued Medications Lidocaine HCl (Lidocaine 2% Inj Sdv 5ml) 10 ml INJ NOW ONE Stop: 07/26/24 12:52 Last Admin: 07/26/24 13:30 Dose: 10 ml Documented By: DM Morphine Sulfate (Morphine 4 Mg/Ml Inj) 4 mg IV NOW ONE Stop: 07/26/24 12:21 Last Admin: 07/26/24 12:28 Dose: 4 mg Documented By: TC Vital Signs Vital signs: Vital Signs - 8 hr 07/26/24 09:32 07/26/24 09:35 07/26/24 10:00 Temperature 98.3 F Pulse Rate 100 H 64 61 Respiratory Rate 16 12 Blood Pressure 203/86 H Pulse Oximetry 98 99 96 Oxygen Delivery Method Room Air 07/26/24 10:02 07/26/24 10:02 07/26/24 10:30 Temperature Pulse Rate 76 60 Respiratory Rate 13 22 Blood Pressure 178/75 H 190/77 H Pulse Oximetry 97 99 Oxygen Delivery Method 07/26/24 11:00 07/26/24 12:08 07/26/24 12:31 Temperature Pulse Rate 62 61 63 Respiratory Rate 19 19 19 Blood Pressure 191/84 H 178/84 H 160/72 H Pulse Oximetry 100 98 97 Oxygen Delivery Method Room Air Room Air 07/26/24 13:00 07/26/24 14:00 07/26/24 14:37 Temperature Pulse Rate 64 64 60 Respiratory Rate 13 14 13 Blood Pressure 174/73 H 151/66 H 177/74 H Pulse Oximetry 97 95 94 Oxygen Delivery Method Room Air Room Air Room Air 07/26/24 15:02 Temperature Pulse Rate 59 L Respiratory Rate 18 Blood Pressure 149/68 H Pulse Oximetry 94 Oxygen Delivery Method Room Air MDM - Fall Lab Data 07/26/24 09:15 07/26/24 09:15 Labs: Lab Results 07/26/24 Range/Units 09:15 WBC 9.6 (4.5-11.0) X10^3/uL RBC 4.44 (4.0-5.2) X10^6/uL Hgb 13.6 (12.0-16.0) g/dL Hct 39.4 (36-46) % MCV 88.9 (80-100) fL MCH 30.6 (26-34) PG MCHC 34.4 (30-36) % RDW 13.3 (11.6-14.8) % Plt Count 298 (150-400) X10^3/uL Neut % (Auto) 80.4 H (50-75) % Lymph % (Auto) 11.3 L (25-40) % Spink % (Auto) 7.6 (3-14) % Eos % (Auto) 0.2 L (2-4) % Baso % (Auto) 0.5 (0-2) % Neut # (Auto) 7700 H (5559-5282) /uL Lymph # (Auto) 1100 (5343-4183) /uL Spink # (Auto) 700 (0-900) /uL Eos # (Auto) 0 (0-450) /uL Baso # (Auto) 0 (0-100) /uL PT 10.9 (9.4-12.5) SECONDS INR 1.0 (0.9-1.3) APTT 34 (25.1-36.5) SECONDS Sodium 133 L (137-145) mmol/L Potassium 3.8 (3.4-5.1) mmol/L Chloride 100 (98-107) mmol/L Carbon Dioxide 28 (22-32) mmol/L BUN 8 (7-17) mg/dL Creatinine 0.73 (0.52-1.04) mg/dL Estimated GFR > 60 (>60) mL/min BUN/Creatinine Ratio 11.0 (6-22) Glucose 120 H (80-110) mg/dL Calcium 9.2 (8.4-10.2) mg/dL Total Bilirubin 0.8 (0.2-1.3) mg/dL AST 42 H (14-36) IU/L ALT 17 (<35) IU/L Alkaline Phosphatase 93 (38-126) U/L Total Protein 6.7 (6.3-8.2) g/dL Albumin 3.8 (3.5-5.0) g/dL Globulin 2.9 (1.7-4.1) g/dL Albumin/Globulin Ratio 1.3 (1.0-2.8) Lipase 348 H (23-300) U/L Imaging Data CT scan - head: Radiologist's Impression: Mary Grace Duff??78??F??1945 ? Allergy/Adv: ciprofloxacin, nitrofurantoin, Sulfa (Sulfonamide Antibiotics) (More??) Close Head CT (Signed) Trevor Rowell - 07/26/24 Chest X-Ray (Signed) Dayday Nathan - 07/26/[address] (Signed) Trevor Rowell - 07/26/[address] (Signed) Trevor Rowell - 07/25/24 Head/Neck CTA (Signed) Ezequiel Mcclure - 07/25/[address] (Signed) Jamil Fatima - 07/25/24 Mammogram Screening (Signed) Mathieu Burciaga - 02/22/[address] (Signed) Isabel Hodge - 06/04/[address] (Signed) Isabel Hodge - 06/04/23 Mammogram Screening (Signed) Dayday Nathan - 01/23/23 Renal MRI (Signed) Ashish Macias - 12/29/22 Renal Ultrasound (Signed) Ashish Macias - 12/20/22 Bone Densitometry (Signed) Danny Daniels - 12/20/22 Ankle X-Ray (Signed) Umberto Duran - 05/27/22 Telemetry Strips 02/01/22 Mammogram Screening (Signed) Mathieu Burciaga - 01/05/22 Chest X-Ray (Signed) Jacob Rubalcava - 12/16/21 Knee X-Ray (Signed) Antolin Scruggs - 11/23/21 Hip X-Ray (Signed) Liz Contreras - 11/23/21 Mammogram Screening (Signed) Dami Allen - 01/04/21 Lumbar Spine MRI (Signed) Anali Richardson - 01/31/20 Mammogram Screening (Signed) Dami Allen - 01/02/20 Mammogram Screening (Signed) FreddieGeovanna - 11/30/18 Mammogram Screening (Signed) AlysonJamal - 11/29/17 Launch?Image [address] [address] [address] Scan Report Signed Patient: Mary Grace Duff MR#: [id number] : 1945 Acct:[id number] Age/Sex: 78 / F Date of Service: 07/26/24 Loc: ED Accession Number: [id number] Procedure: CT head/brain wo con Ordering Provider: Nicole Barrios D.O. PROCEDURE: CT HEAD/BRAIN WO CON INDICATIONS: fall, recent traumatic SAH, seen yesterday here TECHNIQUE: Noncontrast 4.5 mm thick angled axial sections acquired from the foramen magnum to the vertex, with coronal and sagittal reformats. For radiation dose reduction, the following was used: automated exposure control, adjustment of mA and/or kV according to patient size. COMPARISON: [facility], CT, CT HEAD/BRAIN WO CON, 07/25/2024, 15:34. FINDINGS: Image quality: Diagnostic. CSF spaces: Again seen is small blood product layering within the posterior horns of the lateral ventricles. Basal cisterns are patent. Small hyperdensity along the left tentorium is stable compared to prior, likely a small subdural hemorrhage. Small arachnoid hemorrhage over the right temporal lobe.. The ventricles are symmetric in size and shape. Brain: No definite new intracranial bleeds. There is cerebral volume loss for age, with resultant ventricular and sulcal prominence. There are periventricular and deep white matter chronic small vessel ischemic changes. There is intracranial internal carotid artery atherosclerosis. Skull and face: Calvarium and visualized facial bones appear intact, without suspicious lesions. Sinuses: Visualized sinuses and mastoids are clear. IMPRESSION: Stable findings of mild intracranial hemorrhage including within the ventricles, left tentorial leaflet and over the right temporal lobe. No definite new intracranial hemorrhage is identified. Dictated by: Trevor Rowell M.D. on 07/26/2024 at 10:20 Approved by: Trevor Rowell M.D. on 07/26/2024 at 10:22 CT - cervical spine: Radiologist's Impression: Mary Grace Duff??78??F??1945 ? Allergy/Adv: ciprofloxacin, nitrofurantoin, Sulfa (Sulfonamide Antibiotics) (More??) Close Head CT (Signed) Trevor Rowell - 07/26/24 Chest X-Ray (Signed) Dayday Nathan - 07/26/[address] (Signed) Trevor Rowell - 07/26/[address] (Signed) Trevor Rowell - 07/25/24 Head/Neck CTA (Signed) Ezequiel Mcclure - 07/25/[address] (Signed) Jamil Fatima - 07/25/24 Mammogram Screening (Signed) Mathieu Burciaga - 02/22/[address] (Signed) Isabel Hodge - 06/04/[address] (Signed) Isabel Hodge - 06/04/23 Mammogram Screening (Signed) Dayday Nathan - 01/23/23 Renal MRI (Signed) Ashish Macias - 12/29/22 Renal Ultrasound (Signed) Ashish Macias - 12/20/22 Bone Densitometry (Signed) Danny Daniels - 12/20/22 Ankle X-Ray (Signed) Umberto Duran - 05/27/22 Telemetry Strips 02/01/22 Mammogram Screening (Signed) Mathieu Burciaga - 01/05/22 Chest X-Ray (Signed) Jacob Rubalcava - 12/16/21 Knee X-Ray (Signed) Antolin Scruggs - 11/23/21 Hip X-Ray (Signed) Liz Contreras - 11/23/21 Mammogram Screening (Signed) Dami Allen - 01/04/21 Lumbar Spine MRI (Signed) Anali Richardson - 01/31/20 Mammogram Screening (Signed) Dami Allen - 01/02/20 Mammogram Screening (Signed) Geovanna Frazier - 11/30/18 Mammogram Screening (Signed) Jamal Shields - 11/29/17 Launch?[address] [address] [address] Scan Report Signed Patient: Mary Grace Duff MR#: [id number] : 1945 Acct:[id number] Age/Sex: 78 / F Date of Service: 07/26/24 Loc: ED Accession Number: [id number] Procedure: CT head/brain wo con Ordering Provider: Nicole Barrios D.O. PROCEDURE: CT HEAD/BRAIN WO CON INDICATIONS: fall, recent traumatic SAH, seen yesterday here TECHNIQUE: Noncontrast 4.5 mm thick angled axial sections acquired from the foramen magnum to the vertex, with coronal and sagittal reformats. For radiation dose reduction, the following was used: automated exposure control, adjustment of mA and/or kV according to patient size. COMPARISON: [facility], CT, CT HEAD/BRAIN WO CON, 07/25/2024, 15:34. FINDINGS: Image quality: Diagnostic. CSF spaces: Again seen is small blood product layering within the posterior horns of the lateral ventricles. Basal cisterns are patent. Small hyperdensity along the left tentorium is stable compared to prior, likely a small subdural hemorrhage. Small arachnoid hemorrhage over the right temporal lobe.. The ventricles are symmetric in size and shape. Brain: No definite new intracranial bleeds. There is cerebral volume loss for age, with resultant ventricular and sulcal prominence. There are periventricular and deep white matter chronic small vessel ischemic changes. There is intracranial internal carotid artery atherosclerosis. Skull and face: Calvarium and visualized facial bones appear intact, without suspicious lesions. Sinuses: Visualized sinuses and mastoids are clear. IMPRESSION: Stable findings of mild intracranial hemorrhage including within the ventricles, left tentorial leaflet and over the right temporal lobe. No definite new intracranial hemorrhage is identified. Dictated by: Trevor Rowell M.D. on 07/26/2024 at 10:20 Approved by: Trevor Rowell M.D. on 07/26/2024 at 10:22 Chest x-ray: Radiologist's Impression: Mary Grace Duff??78??F??1945 ? Allergy/Adv: ciprofloxacin, nitrofurantoin, Sulfa (Sulfonamide Antibiotics) (More??) Close Head CT (Signed) Trevor Rowell - 07/26/24 Chest X-Ray (Signed) Dayday Nathan - 07/26/[address] (Signed) Trevor Rowell - 07/26/[address] (Signed) Trevor Rowell - 07/25/24 Head/Neck CTA (Signed) Ezequiel Mcclure - 07/25/[address] (Signed) Alexis Fatimaderic - 07/25/24 Mammogram Screening (Signed) Mathieu Burciaga - 02/22/[address] (Signed) Isabel Hodge - 06/04/[address] (Signed) Isabel Hodge - 06/04/23 Mammogram Screening (Signed) Dayday Nathan - 01/23/23 Renal MRI (Signed) Ashish Macias - 12/29/22 Renal Ultrasound (Signed) Ashish Macias - 12/20/22 Bone Densitometry (Signed) Danny Daniels - 12/20/22 Ankle X-Ray (Signed) Umberto Duran - 05/27/22 Telemetry Strips 02/01/22 Mammogram Screening (Signed) Mathieu Burciaga - 01/05/22 Chest X-Ray (Signed) Jacob Rubalcava - 12/16/21 Knee X-Ray (Signed) Antolin Scruggs - 11/23/21 Hip X-Ray (Signed) Liz Contreras - 11/23/21 Mammogram Screening (Signed) Dami Allen - 01/04/21 Lumbar Spine MRI (Signed) Anali Richardson - 01/31/20 Mammogram Screening (Signed) Dami Allen - 01/02/20 Mammogram Screening (Signed) Geovanna Frazier - 11/30/18 Mammogram Screening (Signed) Jamal Shields - 11/29/17 Launch?Image [address] [address] XRay Report Signed Patient: Mary Grace Duff MR#: [id number] : 1945 Acct:[id number] Age/Sex: 78 / F Date of Service: 07/26/24 Loc: ED Accession Number: [id number] Procedure: XR chest 1V Ordering Provider: Nicole Barrios D.O. PROCEDURE: XR CHEST 1V INDICATIONS: fall, recent traumatic SAH, seen yesterday here TECHNIQUE: One view of the chest was acquired. COMPARISON: [facility], CR, XR CHEST 2V, 12/16/2021, 18:15. [facility], CR, CHEST 2 VIEW, 05/17/2014, 14:06. FINDINGS: Surgical changes and devices: None. Lungs and pleura: Low lung volumes. No dense consolidation or pleural effusion Mediastinum: Normal heart size. Bones and chest wall: Unremarkable IMPRESSION: Limited single view radiograph with low lung volumes. No acute abnormality. Dictated by: Dayday Nathan M.D. on 07/26/2024 at 11:10 Approved by: Dayday Nathan M.D. on 07/26/2024 at 11:11 [facility] Narrative Medical decision making narrative: 78-year-old female was seen yesterday has had a recent traumatic subarachnoid hemorrhage was at [facility] discharged last Monday. Patient was seen and felt to likely have combination of TBI and persistent concussive symptoms with nausea but no active vomiting at home appear dehydrated. She was given some pain medications fluids was able to ambulate safely her images were discussed with Neurology and had a repeat head CT at 4:00 a.m. which showed no new or worsening changes patient was felt appropriate for discharge home. Patient returns today with suspected fall overnight does seem a little bit more confused or at least has a little bit more difficulty giving history she was initially quite hypertensive. Head CT stable findings of mild intracranial hemorrhage including with the ventricles left anterior leaflet and right temporal lobe no definitive new intracranial hemorrhage identified. CT cervical spine no displaced fracture or traumatic subluxation. Chest x-ray no acute change Labs show white count of 9.6 hemoglobin of 13 platelets of 298, coags are negative sodium is 133 the same as yesterday 24 hours ago, electrolytes are otherwise appropriate glucose is 120 AST is 42 TS are all negative lipase is 348. 1100 paged out [facility]. Spoke with Dr. Botello, reviewed findings she suspect this is probably more TBI recommends admission with observation here locally notes bleed is less conspicuous than before but she will discuss with her attending and call back with any additional recommendations. Recommend lumbar puncture to evaluate if pressure is greater than 20. If it was to call back for potential hydrocephalus if less than 20 can keep here for observation. If unable to obtain they asked for call back. States she will talk with the attending and call back to make sure that They agree. 1230: Called back does ask for lumbar puncture, please call back whatever pressure result are or if were not able to obtain but for pressure greater than 28 concern for hydrocephalus [place] present possibly from blood blocking drainage of the ventricles. Spoke with patient's family at bedside we will attempt has been notes she has scoliosis and some hip issues that make her back sort of curve normally discussed we will attempt lumbar puncture but could be some difficulty obtaining pressure after discussion. Patient is agreeable but it was little bit confused so signed consent. Lumbar puncture was performed and patient's opening pressure was 33 fluid was yellow color but clear suspect this is from blood secondary to patient's recent subarachnoid which still shows blood on her head CT no gross blood no purulence. Fluid was collected but neurosurgery did not require any labs currently so was walked down to the lab by nursing. Contacted [facility] to talk to Dr. Botello @ [phone]. Awaiting callback. [phone]: Spoke with Dr. Botello, she accepts for transfer to [facility] Emergency Department plan for ED to ED transfer via ground ALS fluids pain medications as needed as well as monitoring. States that we do not need to send for any CSF studies. Discussed with patient and family they are agreeable with transfer. Patient had maybe 30 mL of CSF removed but appears much more alert after repeat evaluation after lumbar puncture. Discharge Plan Departure Patient Disposition: [facility] Clinical Impression: Hemorrhage, subarachnoid, traumatic, Hydrocephalus Prescriptions: No Action oxybutynin chloride 5 mg tablet extended release 24hr 5 mg PO DAILY Qty: 30 2RF zolpidem 5 mg tablet 5 mg PO BEDTIME PRN (Reason: insomnia) Qty: 30 0RF atorvastatin 10 mg tablet See Rx Instructions .ROUTE .COMPLEX Qty: 90 3RF Dose Instruction: TAKE 1 TABLET DAILY Rx Instructions: TAKE 1 TABLET DAILY metoprolol succinate 25 mg tablet extended release 24 hr 25 mg PO DAILY Qty: 90 3RF duloxetine 40 mg capsule,delayed release(DR/EC) 40 mg PO DAILY Qty: 90 3RF cholecalciferol (vitamin D3) [Vitamin D3] 25 mcg (1,000 unit) Capsule 25 mcg PO DAILY oxycodone 5 mg tablet 5 mg PO Q6H PRN (Reason: pain) Qty: 14 0RF ondansetron 4 mg tablet,disintegrating 4 mg PO Q6H PRN (Reason: nausea and vomiting) Qty: 14 0RF metoclopramide HCl [Reglan] 10 mg tablet 10 mg PO Q6H PRN (Reason: nausea and vomiting) Qty: 10 0RF Referrals: Charline Steve MD [Primary Care Provider] -
[2024-07-26 09:57] LABS: Prothrombin Time 10.9 SECONDS (9.4-12.5)
[2024-07-26 10:00] LABS: PTT Partial Thromboplastin Tim 34 SECONDS (25.1-36.5)
[2024-07-26 10:08] LABS: Add Manual Diff / Slide Review NO; Basophils Absolute Auto 0 /uL (0-100); Basophils Percent Auto 0.5 % (0-2); Eosinophils Absolute Auto 0 /uL (0-450); Eosinophils Percent Auto 0.2 % (2-4); Hematocrit 39.4 % (36-46); Hemoglobin 13.6 g/dL (12.0-16.0); Lymphocytes Absolute Auto 1100 /uL (1100-4500); Lymphocytes Percent Auto 11.3 % (25-40); Mean Corpuscular HGB Conc 34.4 % (30-36); Mean Corpuscular Hemoglobin 30.6 PG (26-34); Mean Corpuscular Volume 88.9 fL (80-100); Monocytes Absolute Auto 700 /uL (0-900); Monocytes Percent Auto 7.6 % (3-14); Neutrophils Absolute Auto 7700 /uL (1500-7000); Neutrophils Percent Auto 80.4 % (50-75); Platelet Count 298 X10^3/uL (150-400); Red Blood Cell Count 4.44 X10^6/uL (4.0-5.2); Red Cell Distribution Width 13.3 % (11.6-14.8); White Blood Cell Count 9.6 X10^3/uL (4.5-11.0)
[2024-07-26 10:10] LABS: Alanine Aminotransferase 17 IU/L (<35); Albumin 3.8 g/dL (3.5-5.0); Albumin Globulin Ratio 1.3 (1.0-2.8); Alkaline Phosphatase 93 U/L (38-126); Aspartate Aminotransferase 42 IU/L (14-36); Bilirubin Total 0.8 mg/dL (0.2-1.3); Blood Urea Nitrogen 8 mg/dL (7-17); Calcium 9.2 mg/dL (8.4-10.2); Carbon Dioxide 28 mmol/L (22-32); Chloride 100 mmol/L (98-107); Estimated Glomerular Filt Rate > 60 mL/min (>60); Globulin 2.9 g/dL (1.7-4.1); Glucose 120 mg/dL (80-110); HEMOLYSIS 32 (0-50); Lipase 348 U/L (23-300); Potassium 3.8 mmol/L (3.4-5.1); Sodium 133 mmol/L (137-145); Total Protein 6.7 g/dL (6.3-8.2)
[2024-07-26] MEDS: MORPHINE 4 MG/ML INJ IV (12:28)
[2024-07-26] MEDS: LIDOCAINE 2% INJ SDV 5ML 10 ML INJ (13:30)
[2024-07-26] MEDS: SODIUM CHLORIDE 0.9% 1,000 ML 175 ML IV (13:56)
--- NOTE | 2024-07-26 14:23 | PC.NURSE ---
Patient resting in bed with bed flat post Lumbar puncture with pressure evaluation. Some CSF fluid removed for sample hold and measurements. Since procedure, patient is more alert. She is alert to self and year, but is confused about current situation. Pt has had recent neurologica changes due to post traumatic subarachnoid hemorrhage. Unable to assess her baseline, but does appear to have some mental status improvement since I met her today. Patient denies pain. Has control of extremities and denies sensory changes.
--- NOTE | 2024-07-26 15:19 | CM.SWNOTE ---
ED FIELD PARTY MANAGER Note Patient presents to ED again today due to concern for GLF. This FIELD PARTY MANAGER met with patient yesterday and referred [facility]. [facility] reports that referral is received and they can accept patient. Plan of care at this ED presentation is to transfer [facility] ED for higher level of care due to concern for hydrocephalus and traumatic subarachnoid hemorrhage. FIELD PARTY MANAGER informs [facility] of this transfer, they will follow up with [facility] and patient as needed. Celeste Enriquez, COMMUNITY ASSOCIATE
== END 2024-07-26 15:01 | disposition short-term general hospital (02) ==
PROVIDERS: Emergency Provider Emergency Medicine; PCP Family Medicine
DX: G91.3 Post-traumatic hydrocephalus, unspecified (principal); S06.6XAD Traumatic subarachnoid hemorrhage with loss of consciousness status unknown, subsequent encounter; R11.0 Nausea; R41.0 Disorientation, unspecified
CPT/HCPCS: 36415; 62270; 70450; 71045; 72125; 80053; 83690; 85025; 85610; 85730; 96361; 96374; 99284; 99285; J2270

== ENCOUNTER 2024-10-09 11:30 | Outpatient (RCR) | payer MEDICARE, OTHER, SELFPAY ==
--- NOTE | 2024-08-27 17:45 | PT.OPPOC ---
Physical, Occupational & Speech Therapy At [facility] Current Diagnoses Hydrocephalus, unspecified (08/27/24) Unsteadiness on feet (08/27/24) Repeated falls (08/27/24) History of falling (08/27/24) Visit Care Team Role Provider Type Charline Steve MD Attending Provider Physician Family Provider Primary Care Provider Referring Provider Specialty: Family Practice Address: [address] [place] [address], [facility] [place], [address] Email: [email or web address] Plan Of Care PT-OP-B Current Condition Start: 08/27/24 17:36 Freq: Status: Active Protocol: Document 08/27/24 17:00 DCW (Rec: 08/27/24 17:51 DCW [id number]) Current Condition History of Current Condition Onset Date 07/17/24 Current Complaints LOB, falls History of Current Condition Pt is a 78 year old female who notes recent falls. Most significant fall occurred , which pt is still unclear what happened, but ended up falling down some stairs, hit head with LOC. Was eventually found to have suffered a SAH. Was initially discharges , returned to ED 07/25/24 with headaches and nausea. Returned again on 07/26 following an overnight fall and worsening cognition. Was then transferred to [facility] , admitted from 07/27/24-. Underwent lumbar drain placement on 07/29, drain was clamped 08/01, removed 08/02. Pt has since recovered fairly well, not experiencing any lingering effects from head injury. Admits she is still somewhat weak due to being in and out of hospitals for a month. Also just unclear as to why she has had so many recent falls, although later admits she tends to peraza, not pay attention, and make poor decisions. Treatment Goals Patient/Caregiver Goals Decrease risk of falls PT-OP-T Assessment and Plan Start: 08/27/24 17:36 Freq: Status: Active Protocol: Document 08/27/24 17:00 DCW (Rec: 08/28/24 09:44 DCW [id number]) Physical Therapy Assessment Rehab Potential Rehabilitation Potential Excellent Evaluation Complexity Number of Personal Factors/Comorbidities 3 or More Number of Body Systems Impaired 4 or More Clinical Presentation at Evaluation Unstable Impairments Impairments Balance,Functional Activities, Functional Mobility,Strength Goals Two Impairment DGI score (19/24) indicates increased risk of falls Mcfp Goal (LTG) Pt to improve DGI score by at least three points to 22/24 in order to demonstrate decreased falls risk. LTG Duration 10/25/24 One Impairment Pt does not have an appropriate home exercise program Short Term Goal (STG) PT to be independent and compliant with an appropriate HEP STG Duration 09/24/24 Assessment Summary Assessment Pt presents with signs and symptoms consistent with referring diagnosis. Pt actually doing quite well following fall with head injury and LOC, no longer experiencing and lingering TBI effects. Overall, just feels balance isn't where it needs to be, and has some mild LE weakness after spending the month of July in and out of hospitals. Pt will likely benefit from focus on LE strengthening and balance training, specifically dynamic challenges and head turns. Pt likely to progress quickly, will need to ensure she is safe with balance for her HEP, and will likely transition to an independent HEP over 3-4 weeks. Physical Therapy Plan Frequency and Duration Frequency of Treatment 2x/Week Plan of Care Start Date 08/27/24 Plan of Care End Date 10/25/24 Therapeutic Interventions Therapeutic Interventions Balance Training,Coordination Training,Home Exercise Program ,Manual Therapy,Neuromuscular Re-education,Patient/Caregiver Education,Self-Care/Home Management,Soft Tissue Mobilization,Therapeutic Activities,Therapeutic Exercises Next Visit Focus/Plan Next Note Type Treatment Note Next Visit Plan Balance training, LE strengthening Plan of Care Dates Plan of Care Start Date 08/27/24 Plan of Care End Date 10/25/24 Electronically Signed by: Israel Henderson, PT 08/28/24 0944 If you are in agreement with this Plan of Care, please return a signed and dated copy. I have reviewed this Plan of Care and certify that the skilled therapy services above are required to meet the patient?s needs. Physician Signature Date Printed Name and Credentials Clinical Instructor Signature Printed Name and Credentials
--- NOTE | 2024-08-27 17:45 | PT.OIE ---
Current Diagnoses Hydrocephalus, unspecified (08/27/24) Unsteadiness on feet (08/27/24) Repeated falls (08/27/24) History of falling (08/27/24) Past Medical History (Last Reviewed 07/26/24 @ 09:49 by Nicole Barrios DO) Abnormal Pap smear of cervix Acid reflux Arthritis Bruises easily Depression Essential hypertension Fibromyalgia Hemorrhoid History of urinary incontinence History of UTI Hyperlipidemia Ovarian cyst (~2002) Recurrent UTI Urinary frequency Past Surgical History (Last Reviewed 07/26/24 @ 09:49 by Nicole Barrios DO) Anesthesia History of hysterectomy (~2002) Lipoma Visit Care Team Role Provider Type Charline Steve MD Attending Provider Physician Family Provider Primary Care Provider Referring Provider Specialty: Family Practice Address: [address] [place] [address] [place], [facility] Email: [email or web address] Physical Therapy Initial Evaluation PT-OP-A Visit Information Start: 08/27/24 17:36 Freq: Status: Active Protocol: Document 08/27/24 17:00 DCW (Rec: 08/27/24 17:51 DCW [id number]) Out-Patient Physical Therapy Visit Information Visit Information Visit Type Initial Evaluation Visit Start Time 17:00 Visit Stop Time 17:35 Visit Number [address] OFFICE ASSISTANT Visits 0 Evaluation Information Evaluation Date 08/27/24 PT-OP-B Current Condition Start: 08/27/24 17:36 Freq: Status: Active Protocol: Document 08/27/24 17:00 DCW (Rec: 08/27/24 17:51 DCW [id number]) Current Condition History of Current Condition Onset Date 07/17/24 Current Complaints LOB, falls History of Current Condition Pt is a 78 year old female who notes recent falls. Most significant fall occurred , which pt is still unclear what happened, but ended up falling down some stairs, hit head with LOC. Was eventually found to have suffered a SAH. Was initially discharges , returned to ED 07/25/24 with headaches and nausea. Returned again on 07/26 following an overnight fall and worsening cognition. Was then transferred to [facility] , admitted from 07/27/24-. Underwent lumbar drain placement on 07/29, drain was clamped 08/01, removed 08/02. Pt has since recovered fairly well, not experiencing any lingering effects from head injury. Admits she is still somewhat weak due to being in and out of hospitals for a month. Also just unclear as to why she has had so many recent falls, although later admits she tends to peraza, not pay attention, and make poor decisions. Treatment Goals Patient/Caregiver Goals Decrease risk of falls PT-OP-C Subjective Start: 08/27/24 17:36 Freq: Status: Active Protocol: Document 08/27/24 17:00 DCW (Rec: 08/27/24 17:51 DCW [id number]) OP-PT Subjective Patient Comments Patient Comments I've had a few falls, so maybe I've always had balance issues, but before now, I've never really felt I did. Patient Reported Progress Improving Patient Questionnaires Other Questionnaire Name and Score Falls Efficacy Scale - International: PT-OP-D Balance Start: 08/27/24 17:36 Freq: Status: Active Protocol: Document 08/27/24 17:00 DCW (Rec: 08/27/24 17:51 DCW [id number]) Mark Balance Assessment Evaluation Sitting to Standing Ability Independent w/out Hands Unsupported Stance Safely- 2 minutes Sitting Unsupported, Feet on Floor Safely- 2 minutes Standing to Sitting Ability Safely, Minimal Hand Use Transfer Ability Safely, Minimal Hand Use Unsupported Stance- Eyes Closed Safely, 10 seconds Unsupported Stance- Eyes Open Independent, 1 minute Reaching Forward Standing Confidently, 10 inches Pick- Up Object From Floor Independent/Safe Look Behind Shoulder - Standing Shifts Weight Well Turning 360 Degrees Turns slowly, but safely Unsupported Stance, Alternating Feet on (I)- 8 Steps in 20 secs Stair Unsupported Tandem Stance Holds Tandem- 30 seconds Unilateral Leg Stance Lifts Leg/Holds 5-10 secs Total Score Mark Total Score (out of 56 points) 52 Mark Impairment Rating 1 to 19% Impaired (Score 45-55 ) PT-OP-E Functional Tests Start: 08/27/24 17:36 Freq: Status: Active Protocol: Document 08/27/24 17:00 DCW (Rec: 08/27/24 17:51 DCW [id number]) Functional Tests Dynamic Gait Index (DGI) Score 19/24 PT-OP-M Strength Start: 08/27/24 17:36 Freq: Status: Active Protocol: Document 08/27/24 17:00 DCW (Rec: 08/28/24 09:44 DCW [id number]) Hip Strength Hip Manual Muscle Testing Right Flexion (L2) 4 Good Extension (S1) 4+ Good+ Abduction 4+ Good+ Adduction 5 Normal External Rotation 4+ Good+ Internal Rotation 4+ Good+ Left Flexion (L2) 4 Good Extension (S1) 4+ Good+ Abduction 4+ Good+ Adduction 5 Normal External Rotation 4+ Good+ Internal Rotation 4+ Good+ Knee Strength Knee Manual Muscle Testing Right Flexion (S2) 5 Normal Extension (L3) 4+ Good+ Left Flexion (S2) 5 Normal Extension (L3) 4+ Good+ PT-OP-T Assessment and Plan Start: 08/27/24 17:36 Freq: Status: Active Protocol: Document 08/27/24 17:00 DCW (Rec: 08/28/24 09:44 [facility] [id number]) Physical Therapy Assessment Rehab Potential Rehabilitation Potential Excellent Evaluation Complexity Number of Personal Factors/Comorbidities 3 or More Number of Body Systems Impaired 4 or More Clinical Presentation at Evaluation Unstable Impairments Impairments Balance,Functional Activities, Functional Mobility,Strength Goals Two Impairment DGI score (19/24) indicates increased risk of falls Precast Worker Goal (LTG) Pt to improve DGI score by at least three points to 22/24 in order to demonstrate decreased falls risk. LTG Duration 10/25/24 One Impairment Pt does not have an appropriate home exercise program Short Term Goal (STG) PT to be independent and compliant with an appropriate HEP STG Duration 09/24/24 Assessment Summary Assessment Pt presents with signs and symptoms consistent with referring diagnosis. Pt actually doing quite well following fall with head injury and LOC, no longer experiencing and lingering TBI effects. Overall, just feels balance isn't where it needs to be, and has some mild LE weakness after spending the month of July in and out of hospitals. Pt will likely benefit from focus on LE strengthening and balance training, specifically dynamic challenges and head turns. Pt likely to progress quickly, will need to ensure she is safe with balance for her HEP, and will likely transition to an independent HEP over 3-4 weeks. Physical Therapy Plan Frequency and Duration Frequency of Treatment 2x/Week Plan of Care Start Date 08/27/24 Plan of Care End Date 10/25/24 Therapeutic Interventions Therapeutic Interventions Balance Training,Coordination Training,Home Exercise Program ,Manual Therapy,Neuromuscular Re-education,Patient/Caregiver Education,Self-Care/Home Management,Soft Tissue Mobilization,Therapeutic Activities,Therapeutic Exercises Next Visit Focus/Plan Next Note Type Treatment Note Next Visit Plan Balance training, LE strengthening
--- NOTE | 2024-09-02 10:33 | PT.OTN ---
Current Diagnoses Hydrocephalus, unspecified (09/02/24) Unsteadiness on feet (09/02/24) Repeated falls (09/02/24) History of falling (09/02/24) Physical Therapy Treatment Note PT-OP-A Visit Information Start: 08/27/24 17:36 Freq: Status: Active Protocol: Document 09/02/24 09:45 DCW (Rec: 09/02/24 10:33 DCW [id number]) Out-Patient Physical Therapy Visit Information Visit Information Visit Type Treatment Note Visit Start Time 09:45 Visit Stop Time 10:30 Visit Number 2 Number of DATA TECHNICIAN Visits 0 Evaluation Information Evaluation Date 08/27/24 PT-OP-B Current Condition Start: 08/27/24 17:36 Freq: Status: Active Protocol: Document 08/27/24 17:00 DCW (Rec: 08/27/24 17:51 DCW [id number]) Current Condition History of Current Condition Onset Date 07/17/24 Current Complaints LOB, falls History of Current Condition Pt is a 78 year old female who notes recent falls. Most significant fall occurred , which pt is still unclear what happened, but ended up falling down some stairs, hit head with LOC. Was eventually found to have suffered a SAH. Was initially discharges , returned to ED 07/25/24 with headaches and nausea. Returned again on 07/26 following an overnight fall and worsening cognition. Was then transferred to [facility] , admitted from 07/27/24-. Underwent lumbar drain placement on 07/29, drain was clamped 08/01, removed 08/02. Pt has since recovered fairly well, not experiencing any lingering effects from head injury. Admits she is still somewhat weak due to being in and out of hospitals for a month. Also just unclear as to why she has had so many recent falls, although later admits she tends to peraza, not pay attention, and make poor decisions. Treatment Goals Patient/Caregiver Goals Decrease risk of falls PT-OP-C Subjective Start: 08/27/24 17:36 Freq: Status: Active Protocol: Document 09/02/24 09:45 DCW (Rec: 09/02/24 10:33 DCW [id number]) OP-PT Subjective Patient Comments Patient Comments Pt reports she is feeling well today PT-OP-D Balance Start: 08/27/24 17:36 Freq: Status: Active Protocol: Document 08/27/24 17:00 DCW (Rec: 08/27/24 17:51 DCW [id number]) Mark Balance Assessment Evaluation Sitting to Standing Ability Independent w/out Hands Unsupported Stance Safely- 2 minutes Sitting Unsupported, Feet on Floor Safely- 2 minutes Standing to Sitting Ability Safely, Minimal Hand Use Transfer Ability Safely, Minimal Hand Use Unsupported Stance- Eyes Closed Safely, 10 seconds Unsupported Stance- Eyes Open Independent, 1 minute Reaching Forward Standing Confidently, 10 inches Pick- Up Object From Floor Independent/Safe Look Behind Shoulder - Standing Shifts Weight Well Turning 360 Degrees Turns slowly, but safely Unsupported Stance, Alternating Feet on (I)- 8 Steps in 20 secs Stair Unsupported Tandem Stance Holds Tandem- 30 seconds Unilateral Leg Stance Lifts Leg/Holds 5-10 secs Total Score Mark Total Score (out of 56 points) 52 Mark Impairment Rating 1 to 19% Impaired (Score 45-55 ) PT-OP-E Functional Tests Start: 08/27/24 17:36 Freq: Status: Active Protocol: Document 08/27/24 17:00 DCW (Rec: 08/27/24 17:51 DCW [id number]) Functional Tests Dynamic Gait Index (DGI) Score PT-OP-M Strength Start: 08/27/24 17:36 Freq: Status: Active Protocol: Document 08/27/24 17:00 DCW (Rec: 08/28/24 09:44 DCW [id number]) Hip Strength Hip Manual Muscle Testing Right Flexion (L2) 4 Good Extension (S1) 4+ Good+ Abduction 4+ Good+ Adduction 5 Normal External Rotation 4+ Good+ Internal Rotation 4+ Good+ Left Flexion (L2) 4 Good Extension (S1) 4+ Good+ Abduction 4+ Good+ Adduction 5 Normal External Rotation 4+ Good+ Internal Rotation 4+ Good+ Knee Strength Knee Manual Muscle Testing Right Flexion (S2) 5 Normal Extension (L3) 4+ Good+ Left Flexion (S2) 5 Normal Extension (L3) 4+ Good+ PT-OP-Q Treatments Start: 08/27/24 17:36 Freq: Status: Active Protocol: Document 09/02/24 09:45 DCW (Rec: 09/02/24 10:33 DCW [id number]) Gym Equipment Shuttle Recovery Unilateral Squats Resistance 37# Bilateral Squats Resistance 75# Therapeutic Exercises Standing Exercises Step-ups Standing Exercise Name Step-ups Side bilateral Equipment Used 6 step Comments stopped on R d/t knee pain Other Exercises Resisted Ambulation Other Exercise Name Resisted side-stepping, forward, backward Resistance Green loop Neuro Re-Education Treatment Balance Activities Dynamic Gait Details Hallway Ambulation Comments Head turns, Tandem Gait Hurdles Details Hurdles Comments Fwd, Lateral SLS Details SLS Equipment // bars Tandem Details Tandem Stance Foam Details WBOS, X1, EO/EC PT-OP-T Assessment and Plan Start: 08/27/24 17:36 Freq: Status: Active Protocol: Document 09/02/24 09:45 DCW (Rec: 09/02/24 10:33 DCW [id number]) Physical Therapy Assessment Impairments Impairments Balance,Functional Activities, Functional Mobility,Strength Goals Two Impairment DGI score (19/24) indicates increased risk of falls Preparation Department Supervisor Goal (LTG) Pt to improve DGI score by at least three points to 22/24 in order to demonstrate decreased falls risk. LTG Duration 10/25/24 One Impairment Pt does not have an appropriate home exercise program Short Term Goal (STG) PT to be independent and compliant with an appropriate HEP STG Duration 09/24/24 Assessment Summary Assessment Pt had good response to activity, doing well with balance challenges and LE strengthening. Continue to work on adding to HEP. Physical Therapy Plan Frequency and Duration Frequency of Treatment 2x/Week Plan of Care Start Date 08/27/24 Plan of Care End Date 10/25/24 Therapeutic Interventions Therapeutic Interventions Balance Training,Coordination Training,Home Exercise Program ,Manual Therapy,Neuromuscular Re-education,Patient/Caregiver Education,Self-Care/Home Management,Soft Tissue Mobilization,Therapeutic Activities,Therapeutic Exercises Next Visit Focus/Plan Next Note Type Treatment Note Next Visit Plan Balance training, LE strengthening
--- NOTE | 2024-09-10 08:14 | PT.OTN ---
Current Diagnoses Hydrocephalus, unspecified (09/10/24) Unsteadiness on feet (09/10/24) Repeated falls (09/10/24) History of falling (09/10/24) Physical Therapy Treatment Note PT-OP-A Visit Information Start: 08/27/24 17:36 Freq: Status: Active Protocol: Document 09/10/24 07:34 SP (Rec: 09/10/24 08:16 SP [id number]) Out-Patient Physical Therapy Visit Information Visit Information Visit Type Treatment Note Visit Start Time 07:34 Visit Stop Time 08:14 Visit Number 3 Number of MANIFEST CLERK Visits 1 Evaluation Information Evaluation Date 08/27/24 PT-OP-B Current Condition Start: 08/27/24 17:36 Freq: Status: Active Protocol: Document 08/27/24 17:00 DCW (Rec: 08/27/24 17:51 DCW [id number]) Current Condition History of Current Condition Onset Date 07/17/24 Current Complaints LOB, falls History of Current Condition Pt is a 78 year old female who notes recent falls. Most significant fall occurred , which pt is still unclear what happened, but ended up falling down some stairs, hit head with LOC. Was eventually found to have suffered a SAH. Was initially discharges , returned to ED 07/25/24 with headaches and nausea. Returned again on 07/26 following an overnight fall and worsening cognition. Was then transferred to [facility] , admitted from 07/27/24-. Underwent lumbar drain placement on 07/29, drain was clamped 08/01, removed 08/02. Pt has since recovered fairly well, not experiencing any lingering effects from head injury. Admits she is still somewhat weak due to being in and out of hospitals for a month. Also just unclear as to why she has had so many recent falls, although later admits she tends to peraza, not pay attention, and make poor decisions. Treatment Goals Patient/Caregiver Goals Decrease risk of falls PT-OP-C Subjective Start: 08/27/24 17:36 Freq: Status: Active Protocol: Document 09/10/24 07:34 SP (Rec: 09/10/24 08:16 SP [id number]) OP-PT Subjective Patient Comments Patient Comments Pt reports only slightly sore in forearms after last tx. PT-OP-D Balance Start: 08/27/24 17:36 Freq: Status: Active Protocol: Document 08/27/24 17:00 DCW (Rec: 08/27/24 17:51 DCW [id number]) Mark Balance Assessment Evaluation Sitting to Standing Ability Independent w/out Hands Unsupported Stance Safely- 2 minutes Sitting Unsupported, Feet on Floor Safely- 2 minutes Standing to Sitting Ability Safely, Minimal Hand Use Transfer Ability Safely, Minimal Hand Use Unsupported Stance- Eyes Closed Safely, 10 seconds Unsupported Stance- Eyes Open Independent, 1 minute Reaching Forward Standing Confidently, 10 inches Pick- Up Object From Floor Independent/Safe Look Behind Shoulder - Standing Shifts Weight Well Turning 360 Degrees Turns slowly, but safely Unsupported Stance, Alternating Feet on (I)- 8 Steps in 20 secs Stair Unsupported Tandem Stance Holds Tandem- 30 seconds Unilateral Leg Stance Lifts Leg/Holds 5-10 secs Total Score Mark Total Score (out of 56 points) 52 Mark Impairment Rating 1 to 19% Impaired (Score 45-55 ) PT-OP-E Functional Tests Start: 08/27/24 17:36 Freq: Status: Active Protocol: Document 08/27/24 17:00 DCW (Rec: 08/27/24 17:51 DCW [id number]) Functional Tests Dynamic Gait Index (DGI) Score 19/24 PT-OP-M Strength Start: 08/27/24 17:36 Freq: Status: Active Protocol: Document 08/27/24 17:00 DCW (Rec: 08/28/24 09:44 DCW [id number]) Hip Strength Hip Manual Muscle Testing Right Flexion (L2) 4 Good Extension (S1) 4+ Good+ Abduction 4+ Good+ Adduction 5 Normal External Rotation 4+ Good+ Internal Rotation 4+ Good+ Left Flexion (L2) 4 Good Extension (S1) 4+ Good+ Abduction 4+ Good+ Adduction 5 Normal External Rotation 4+ Good+ Internal Rotation 4+ Good+ Knee Strength Knee Manual Muscle Testing Right Flexion (S2) 5 Normal Extension (L3) 4+ Good+ Left Flexion (S2) 5 Normal Extension (L3) 4+ Good+ PT-OP-Q Treatments Start: 08/27/24 17:36 Freq: Status: Active Protocol: Document 09/10/24 07:34 SP (Rec: 09/10/24 08:16 SP [id number]) Gym Equipment Shuttle Recovery Unilateral Squats Resistance 37# 1 teal band Reps/Time x15 reps each LE Bilateral Squats Details cued knees wider with feet Resistance 75# 3 teal bands Reps/Time x15 Therapeutic Exercises Other Exercises Resisted Ambulation Other Exercise Name Resisted side-stepping, forward, backward Resistance Green loop Equipment Used near //bars but not needed Reps/Minutes 10 x3 laps each Neuro Re-Education Treatment Balance Activities corner balance Details NBOS, Semitandem, Tandem, SLS Equipment corner to back /c chair front Comments NBOS: HTs & EC 30 secqqqqqqqqqqqqqqqqqq Semitandem: HTs & EC 30 sec Tandem: small HTs SLS: L 5 sec, R 8 sec Hurdles Details Hurdles: fwd Equipment 6 hurdles, floor> foam Comments cued DF heel clearance and toe clearance, caught PT-OP-T Assessment and Plan Start: 08/27/24 17:36 Freq: Status: Active Protocol: Document 09/10/24 07:34 SP (Rec: 09/10/24 08:16 SP [id number]) Physical Therapy Assessment Goals Two Impairment DGI score (19/24) indicates increased risk of falls Mcc Goal (LTG) Pt to improve DGI score by at least three points to 22/24 in order to demonstrate decreased falls risk. LTG Duration 10/25/24 One Impairment Pt does not have an appropriate home exercise program Short Term Goal (STG) PT to be independent and compliant with an appropriate HEP STG Duration 09/24/24 Assessment Summary Assessment Pt tolerated ther ex well. Progressed initiated corner balance with written HO for carryover home application with good feedback, able to complete NBOS and semistandem with head turns and EC up to 30 sec little sways but no LOB . She was more challenged tandem and SLS today, decreased stance time before needed contact chair for support recovery. Cues for posture, TA and DF heel or toe clearance to support balance during initiated hurdles today able to progress hurdles with uneven surface. Improved corrections midline stability with cuing. Physical Therapy Plan Frequency and Duration Frequency of Treatment 2x/Week Plan of Care Start Date 08/27/24 Plan of Care End Date 10/25/24 Therapeutic Interventions Therapeutic Interventions Balance Training,Coordination Training,Home Exercise Program ,Manual Therapy,Neuromuscular Re-education,Patient/Caregiver Education,Self-Care/Home Management,Soft Tissue Mobilization,Therapeutic Activities,Therapeutic Exercises Next Visit Focus/Plan Next Note Type Treatment Note Next Visit Plan Balance training, LE strengthening
--- NOTE | 2024-09-13 11:33 | PT.OTN ---
Current Diagnoses Hydrocephalus, unspecified (09/13/24) Unsteadiness on feet (09/13/24) Repeated falls (09/13/24) History of falling (09/13/24) Physical Therapy Treatment Note PT-OP-A Visit Information Start: 08/27/24 17:36 Freq: Status: Active Protocol: Document 09/13/24 10:45 DCW (Rec: 09/13/24 11:32 DCW [id number]) Out-Patient Physical Therapy Visit Information Visit Information Visit Type Treatment Note Visit Start Time 10:45 Visit Stop Time 11:30 Visit Number 4 Number of FINISHED CLOTH CHECKER Visits 0 Evaluation Information Evaluation Date 08/27/24 PT-OP-B Current Condition Start: 08/27/24 17:36 Freq: Status: Active Protocol: Document 08/27/24 17:00 DCW (Rec: 08/27/24 17:51 DCW [id number]) Current Condition History of Current Condition Onset Date 07/17/24 Current Complaints LOB, falls History of Current Condition Pt is a 78 year old female who notes recent falls. Most significant fall occurred , which pt is still unclear what happened, but ended up falling down some stairs, hit head with LOC. Was eventually found to have suffered a SAH. Was initially discharges , returned to ED 07/25/24 with headaches and nausea. Returned again on 07/26 following an overnight fall and worsening cognition. Was then transferred to [facility] , admitted from 07/27/24-. Underwent lumbar drain placement on 07/29, drain was clamped 08/01, removed 08/02. Pt has since recovered fairly well, not experiencing any lingering effects from head injury. Admits she is still somewhat weak due to being in and out of hospitals for a month. Also just unclear as to why she has had so many recent falls, although later admits she tends to peraza, not pay attention, and make poor decisions. Treatment Goals Patient/Caregiver Goals Decrease risk of falls PT-OP-C Subjective Start: 08/27/24 17:36 Freq: Status: Active Protocol: Document 09/13/24 10:45 DCW (Rec: 09/13/24 11:32 DCW [id number]) OP-PT Subjective Patient Comments Patient Comments I feel like I didn't do a good job last time I was in here. PT-OP-D Balance Start: 08/27/24 17:36 Freq: Status: Active Protocol: Document 08/27/24 17:00 DCW (Rec: 08/27/24 17:51 DCW [id number]) Mark Balance Assessment Evaluation Sitting to Standing Ability Independent w/out Hands Unsupported Stance Safely- 2 minutes Sitting Unsupported, Feet on Floor Safely- 2 minutes Standing to Sitting Ability Safely, Minimal Hand Use Transfer Ability Safely, Minimal Hand Use Unsupported Stance- Eyes Closed Safely, 10 seconds Unsupported Stance- Eyes Open Independent, 1 minute Reaching Forward Standing Confidently, 10 inches Pick- Up Object From Floor Independent/Safe Look Behind Shoulder - Standing Shifts Weight Well Turning 360 Degrees Turns slowly, but safely Unsupported Stance, Alternating Feet on (I)- 8 Steps in 20 secs Stair Unsupported Tandem Stance Holds Tandem- 30 seconds Unilateral Leg Stance Lifts Leg/Holds 5-10 secs Total Score Mark Total Score (out of 56 points) 52 Mark Impairment Rating 1 to 19% Impaired (Score 45-55 ) PT-OP-E Functional Tests Start: 08/27/24 17:36 Freq: Status: Active Protocol: Document 08/27/24 17:00 DCW (Rec: 08/27/24 17:51 DCW [id number]) Functional Tests Dynamic Gait Index (DGI) Score 1924 PT-OP-M Strength Start: 08/27/24 17:36 Freq: Status: Active Protocol: Document 08/27/24 17:00 DCW (Rec: 08/28/24 09:44 DCW [id number]) Hip Strength Hip Manual Muscle Testing Right Flexion (L2) 4 Good Extension (S1) 4+ Good+ Abduction 4+ Good+ Adduction 5 Normal External Rotation 4+ Good+ Internal Rotation 4+ Good+ Left Flexion (L2) 4 Good Extension (S1) 4+ Good+ Abduction 4+ Good+ Adduction 5 Normal External Rotation 4+ Good+ Internal Rotation 4+ Good+ Knee Strength Knee Manual Muscle Testing Right Flexion (S2) 5 Normal Extension (L3) 4+ Good+ Left Flexion (S2) 5 Normal Extension (L3) 4+ Good+ PT-OP-Q Treatments Start: 08/27/24 17:36 Freq: Status: Active Protocol: Document 09/13/24 10:45 DCW (Rec: 02/28/25 11:32 DCW [id number]) Gym Equipment Shuttle Recovery Unilateral Squats Resistance 37# (1 navy) Bilateral Squats Resistance 75# (3 navy) Therapeutic Exercises Other Exercises Toe-taps Other Exercise Name Toe-taps Side bilateral Resistance 5# Equipment Used 6 step Resisted Ambulation Other Exercise Name Resisted side-stepping, forward, backward Resistance Blue loop Equipment Used near //bars but not needed Comments VCs for eccentric control Neuro Re-Education Treatment Balance Activities Marching Details Marching in place Surface Large blue foam Dynamic Gait Details Tandem Gait Hurdles Details Hurdles/Foam Comments Fwd, Tandem, Lateral SLS Details SLS Equipment // bars Foam Details WBOS, X1, EO/EC Surface Black foam PT-OP-T Assessment and Plan Start: 08/27/24 17:36 Freq: Status: Active Protocol: Document 09/13/24 10:45 DCW (Rec: 09/13/24 11:32 DCW [id number]) Physical Therapy Assessment Impairments Impairments Balance,Functional Activities, Functional Mobility,Strength Goals Two Impairment DGI score (19/24) indicates increased risk of falls Front Office Director Goal (LTG) Pt to improve DGI score by at least three points to 22/24 in order to demonstrate decreased falls risk. LTG Duration 10/25/24 One Impairment Pt does not have an appropriate home exercise program Short Term Goal (STG) PT to be independent and compliant with an appropriate HEP STG Duration 09/24/24 Assessment Summary Assessment Pt notes she feels her balance is improving, she pays more attention to it when she is up moving around. Continue focusing on balance challenges and functional mobility. Physical Therapy Plan Frequency and Duration Frequency of Treatment 2x/Week Plan of Care Start Date 08/27/24 Plan of Care End Date 10/25/24 Therapeutic Interventions Therapeutic Interventions Balance Training,Coordination Training,Home Exercise Program ,Manual Therapy,Neuromuscular Re-education,Patient/Caregiver Education,Self-Care/Home Management,Soft Tissue Mobilization,Therapeutic Activities,Therapeutic Exercises Next Visit Focus/Plan Next Note Type Treatment Note Next Visit Plan Balance training, LE strengthening
--- NOTE | 2024-09-17 09:34 | PT-OP ANOTE ---
Pt cancelled today's appt, very sick.
--- NOTE | 2024-09-20 09:00 | PT.OTN ---
Current Diagnoses Hydrocephalus, unspecified (09/20/24) Unsteadiness on feet (09/20/24) Repeated falls (09/20/24) History of falling (09/20/24) Physical Therapy Treatment Note PT-OP-A Visit Information Start: 08/27/24 17:36 Freq: Status: Active Protocol: Document 09/20/24 08:19 SP (Rec: 09/20/24 09:03 SP [id number]) Out-Patient Physical Therapy Visit Information Visit Information Visit Type Treatment Note Visit Start Time 08:19 Visit Stop Time 09:00 Visit Number 5 Number of BELT CLEANER Visits 1 Evaluation Information Evaluation Date 08/27/24 PT-OP-B Current Condition Start: 08/27/24 17:36 Freq: Status: Active Protocol: Document 08/27/24 17:00 DCW (Rec: 08/27/24 17:51 DCW [id number]) Current Condition History of Current Condition Onset Date 07/17/24 Current Complaints LOB, falls History of Current Condition Pt is a 78 year old female who notes recent falls. Most significant fall occurred , which pt is still unclear what happened, but ended up falling down some stairs, hit head with LOC. Was eventually found to have suffered a SAH. Was initially discharges , returned to ED 07/25/24 with headaches and nausea. Returned again on 07/26 following an overnight fall and worsening cognition. Was then transferred to [facility] , admitted from 07/27/24-. Underwent lumbar drain placement on 07/29, drain was clamped 08/01, removed 08/02. Pt has since recovered fairly well, not experiencing any lingering effects from head injury. Admits she is still somewhat weak due to being in and out of hospitals for a month. Also just unclear as to why she has had so many recent falls, although later admits she tends to peraza, not pay attention, and make poor decisions. Treatment Goals Patient/Caregiver Goals Decrease risk of falls PT-OP-C Subjective Start: 08/27/24 17:36 Freq: Status: Active Protocol: Document 09/20/24 08:19 SP (Rec: 09/20/24 09:03 SP [id number]) OP-PT Subjective Patient Comments Patient Comments Pt reported PT-OP-D Balance Start: 08/27/24 17:36 Freq: Status: Active Protocol: Document 08/27/24 17:00 DCW (Rec: 08/27/24 17:51 DCW [id number]) Mark Balance Assessment Evaluation Sitting to Standing Ability Independent w/out Hands Unsupported Stance Safely- 2 minutes Sitting Unsupported, Feet on Floor Safely- 2 minutes Standing to Sitting Ability Safely, Minimal Hand Use Transfer Ability Safely, Minimal Hand Use Unsupported Stance- Eyes Closed Safely, 10 seconds Unsupported Stance- Eyes Open Independent, 1 minute Reaching Forward Standing Confidently, 10 inches Pick- Up Object From Floor Independent/Safe Look Behind Shoulder - Standing Shifts Weight Well Turning 360 Degrees Turns slowly, but safely Unsupported Stance, Alternating Feet on (I)- 8 Steps in 20 secs Stair Unsupported Tandem Stance Holds Tandem- 30 seconds Unilateral Leg Stance Lifts Leg/Holds 5-10 secs Total Score Mark Total Score (out of 56 points) 52 Mark Impairment Rating 1 to 19% Impaired (Score 45-55 ) PT-OP-E Functional Tests Start: 08/27/24 17:36 Freq: Status: Active Protocol: Document 08/27/24 17:00 DCW (Rec: 08/27/24 17:51 DCW [id number]) Functional Tests Dynamic Gait Index (DGI) Score PT-OP-M Strength Start: 08/27/24 17:36 Freq: Status: Active Protocol: Document 08/27/24 17:00 DCW (Rec: 08/28/24 09:44 DCW [id number]) Hip Strength Hip Manual Muscle Testing Right Flexion (L2) 4 Good Extension (S1) 4+ Good+ Abduction 4+ Good+ Adduction 5 Normal External Rotation 4+ Good+ Internal Rotation 4+ Good+ Left Flexion (L2) 4 Good Extension (S1) 4+ Good+ Abduction 4+ Good+ Adduction 5 Normal External Rotation 4+ Good+ Internal Rotation 4+ Good+ Knee Strength Knee Manual Muscle Testing Right Flexion (S2) 5 Normal Extension (L3) 4+ Good+ Left Flexion (S2) 5 Normal Extension (L3) 4+ Good+ PT-OP-Q Treatments Start: 08/27/24 17:36 Freq: Status: Active Protocol: Document 09/20/24 08:19 SP (Rec: 09/20/24 09:03 SP [id number]) Gym Equipment Shuttle Recovery Unilateral Squats Details unlocked cued ext<> approx 90 deg knee Resistance 37# (1 navy) Reps/Time x15 Bilateral Squats Details unlocked cued ext<> approx 90 deg knee Resistance 75# (3 navy> 3 teal) Reps/Time x15 (3/7 reduction band resistance navy to hard) Therapeutic Exercises Other Exercises TB Marching Other Exercise Name added to HEP declined HO Side bilateral Resistance Tb #4 dark blue at under feet arches Equipment Used near rail/chair back for safety contact home set up carry over Reps/Minutes 2x 20 reps alternating Comments cued feet wide, Toe-taps Other Exercise Name Toe-taps Side bilateral Resistance 5# Equipment Used 8 step,near rail PRN contact Reps/Minutes 2x 20 reps each LE alternating Comments cued posture, rhomboid and TA fac improved midline bal Resisted Ambulation Other Exercise Name Resisted Fwd/Bwd/Side-stepping : reviewed HEP Side bilateral Resistance Blue loop at ankles (provided level 4 dark blue band for home) Equipment Used nearrailbut not needed Comments VCs for eccentric control, DF/ slight knee flexion foot clearance Neuro Re-Education Treatment Balance Activities Dynamic Gait Details Gait: Tandem, Backward 80 bpm , Forward 93 bpm(HTs) Equipment hallway several laps Comments Included metronome f/b with HTs fwd for increased challenge bal midline CUed increase NISHI and allow arm swing. Improved stabiltiy midline corrections use metronome PT-OP-T Assessment and Plan Start: 08/27/24 17:36 Freq: Status: Active Protocol: Document 09/20/24 08:19 SP (Rec: 09/20/24 09:03 SP [id number]) Physical Therapy Assessment Goals Two Impairment DGI score () indicates increased risk of falls Jail Goal (LTG) Pt to improve DGI score by at least three points to 24 in order to demonstrate decreased falls risk. LTG Duration 10/25/24 One Impairment Pt does not have an appropriate home exercise program Short Term Goal (STG) PT to be independent and compliant with an appropriate HEP STG Duration 09/24/24 Assessment Summary Assessment Pt tolerated increased challenge balance use band on feet marching near rail support PRN for carryover home , provided Level 4 band. Initiated metronome for dynamic gait for midline postural correcitons and balance recovery, improved stabiltiy with reps today. Physical Therapy Plan Frequency and Duration Frequency of Treatment 2x/Week Plan of Care Start Date 08/27/24 Plan of Care End Date 10/25/24 Therapeutic Interventions Therapeutic Interventions Balance Training,Coordination Training,Home Exercise Program ,Manual Therapy,Neuromuscular Re-education,Patient/Caregiver Education,Self-Care/Home Management,Soft Tissue Mobilization,Therapeutic Activities,Therapeutic Exercises Next Visit Focus/Plan Next Note Type Treatment Note Next Visit Plan Balance training, LE strengthening
--- NOTE | 2024-09-26 14:31 | PT.OTN ---
Current Diagnoses Hydrocephalus, unspecified (09/26/24) Unsteadiness on feet (09/26/24) Repeated falls (09/26/24) History of falling (09/26/24) Physical Therapy Treatment Note PT-OP-A Visit Information Start: 08/27/24 17:36 Freq: Status: Active Protocol: Document 09/26/24 13:45 DCW (Rec: 09/26/24 14:31 DCW [id number]) Out-Patient Physical Therapy Visit Information Visit Information Visit Type Treatment Note Visit Start Time 13:45 Visit Stop Time 14:30 Visit Number 6 Number of GAS WELDING EQUIPMENT MECHANIC Visits 0 Evaluation Information Evaluation Date 08/27/24 PT-OP-B Current Condition Start: 08/27/24 17:36 Freq: Status: Active Protocol: Document 08/27/24 17:00 DCW (Rec: 08/27/24 17:51 DCW [id number]) Current Condition History of Current Condition Onset Date 07/17/24 Current Complaints LOB, falls History of Current Condition Pt is a 78 year old female who notes recent falls. Most significant fall occurred , which pt is still unclear what happened, but ended up falling down some stairs, hit head with LOC. Was eventually found to have suffered a SAH. Was initially discharges , returned to ED 07/25/24 with headaches and nausea. Returned again on 07/26 following an overnight fall and worsening cognition. Was then transferred to [facility] , admitted from 07/27/24-. Underwent lumbar drain placement on 07/29, drain was clamped 08/01, removed 08/02. Pt has since recovered fairly well, not experiencing any lingering effects from head injury. Admits she is still somewhat weak due to being in and out of hospitals for a month. Also just unclear as to why she has had so many recent falls, although later admits she tends to peraza, not pay attention, and make poor decisions. Treatment Goals Patient/Caregiver Goals Decrease risk of falls PT-OP-C Subjective Start: 08/27/24 17:36 Freq: Status: Active Protocol: Document 09/26/24 13:45 DCW (Rec: 09/26/24 14:31 DCW [id number]) OP-PT Subjective Patient Comments Patient Comments I was walkling downtown the other day, and noticed I was thinking about my feet, and how they were moving, and looking at them all the time. And I don't want to be looking at them all the time. PT-OP-D Balance Start: 08/27/24 17:36 Freq: Status: Active Protocol: Document 08/27/24 17:00 DCW (Rec: 08/27/24 17:51 DCW [id number]) Mark Balance Assessment Evaluation Sitting to Standing Ability Independent w/out Hands Unsupported Stance Safely- 2 minutes Sitting Unsupported, Feet on Floor Safely- 2 minutes Standing to Sitting Ability Safely, Minimal Hand Use Transfer Ability Safely, Minimal Hand Use Unsupported Stance- Eyes Closed Safely, 10 seconds Unsupported Stance- Eyes Open Independent, 1 minute Reaching Forward Standing Confidently, 10 inches Pick- Up Object From Floor Independent/Safe Look Behind Shoulder - Standing Shifts Weight Well Turning 360 Degrees Turns slowly, but safely Unsupported Stance, Alternating Feet on (I)- 8 Steps in 20 secs Stair Unsupported Tandem Stance Holds Tandem- 30 seconds Unilateral Leg Stance Lifts Leg/Holds 5-10 secs Total Score Mark Total Score (out of 56 points) 52 Mark Impairment Rating 1 to 19% Impaired (Score 45-55 ) PT-OP-E Functional Tests Start: 08/27/24 17:36 Freq: Status: Active Protocol: Document 08/27/24 17:00 DCW (Rec: 08/27/24 17:51 DCW [id number]) Functional Tests Dynamic Gait Index (DGI) Score 19/24 PT-OP-M Strength Start: 08/27/24 17:36 Freq: Status: Active Protocol: Document 08/27/24 17:00 DCW (Rec: 08/28/24 09:44 DCW [id number]) Hip Strength Hip Manual Muscle Testing Right Flexion (L2) 4 Good Extension (S1) 4+ Good+ Abduction 4+ Good+ Adduction 5 Normal External Rotation 4+ Good+ Internal Rotation 4+ Good+ Left Flexion (L2) 4 Good Extension (S1) 4+ Good+ Abduction 4+ Good+ Adduction 5 Normal External Rotation 4+ Good+ Internal Rotation 4+ Good+ Knee Strength Knee Manual Muscle Testing Right Flexion (S2) 5 Normal Extension (L3) 4+ Good+ Left Flexion (S2) 5 Normal Extension (L3) 4+ Good+ PT-OP-Q Treatments Start: 08/27/24 17:36 Freq: Status: Active Protocol: Document 09/26/24 13:45 DCW (Rec: 09/26/24 14:31 DCW [id number]) Gym Equipment Shuttle Recovery Unilateral Squats Resistance 37# (1 navy) Reps/Time x15 Bilateral Squats Resistance 75# (3 navy) Reps/Time x15 Shuttle Balance red clips Details WBOS, Staggered Neuro Re-Education Treatment Balance Activities Dynamic Gait Details Head Turns, Tandem, Retro Hurdles Details Hurdles/Foam Comments Fwd, Tandem, Lateral PT-OP-T Assessment and Plan Start: 08/27/24 17:36 Freq: Status: Active Protocol: Document 09/26/24 13:45 DCW (Rec: 09/26/24 14:31 DCW [id number]) Physical Therapy Assessment Impairments Impairments Balance,Functional Activities, Functional Mobility,Strength Goals Two Impairment DGI score (19/24) indicates increased risk of falls Correction Goal (LTG) Pt to improve DGI score by at least three points to 22/24 in order to demonstrate decreased falls risk. LTG Duration 10/25/24 One Impairment Pt does not have an appropriate home exercise program Short Term Goal (STG) PT to be independent and compliant with an appropriate HEP STG Duration 09/24/24 Assessment Summary Assessment Doing very well with treatment so far, is still having some increased anxiety/fear of falling regarding her balance, but is showing good stability with dynamic challenges. Physical Therapy Plan Frequency and Duration Frequency of Treatment 2x/Week Plan of Care Start Date 08/27/24 Plan of Care End Date 10/25/24 Therapeutic Interventions Therapeutic Interventions Balance Training,Coordination Training,Home Exercise Program ,Manual Therapy,Neuromuscular Re-education,Patient/Caregiver Education,Self-Care/Home Management,Soft Tissue Mobilization,Therapeutic Activities,Therapeutic Exercises Next Visit Focus/Plan Next Note Type Treatment Note Next Visit Plan Balance training, LE strengthening
--- NOTE | 2024-09-30 12:17 | PT.OTN ---
Current Diagnoses Hydrocephalus, unspecified (09/30/24) Unsteadiness on feet (09/30/24) Repeated falls (09/30/24) History of falling (09/30/24) Physical Therapy Treatment Note PT-OP-A Visit Information Start: 08/27/24 17:36 Freq: Status: Active Protocol: Document 09/30/24 11:37 SP (Rec: 09/30/24 12:31 SP [id number]) Out-Patient Physical Therapy Visit Information Visit Information Visit Type Treatment Note Visit Start Time 11:37 Visit Stop Time 12:17 Visit Number 7 Number of MANAGER MEETING Visits 1 Evaluation Information Evaluation Date 08/27/24 PT-OP-B Current Condition Start: 08/27/24 17:36 Freq: Status: Active Protocol: Document 08/27/24 17:00 DCW (Rec: 08/27/24 17:51 DCW [id number]) Current Condition History of Current Condition Onset Date 07/17/24 Current Complaints LOB, falls History of Current Condition Pt is a 78 year old female who notes recent falls. Most significant fall occurred , which pt is still unclear what happened, but ended up falling down some stairs, hit head with LOC. Was eventually found to have suffered a SAH. Was initially discharges , returned to ED 07/25/24 with headaches and nausea. Returned again on 07/26 following an overnight fall and worsening cognition. Was then transferred to [facility] , admitted from 07/27/24-. Underwent lumbar drain placement on 07/29, drain was clamped 08/01, removed 08/02. Pt has since recovered fairly well, not experiencing any lingering effects from head injury. Admits she is still somewhat weak due to being in and out of hospitals for a month. Also just unclear as to why she has had so many recent falls, although later admits she tends to peraza, not pay attention, and make poor decisions. 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 She reports doing well with HEP. PT-OP-D Balance Start: 08/27/24 17:36 Freq: Status: Active Protocol: Document 08/27/24 17:00 DCW (Rec: 08/27/24 17:51 DCW [id number]) Mark Balance Assessment Evaluation Sitting to Standing Ability Independent w/out Hands Unsupported Stance Safely- 2 minutes Sitting Unsupported, Feet on Floor Safely- 2 minutes Standing to Sitting Ability Safely, Minimal Hand Use Transfer Ability Safely, Minimal Hand Use Unsupported Stance- Eyes Closed Safely, 10 seconds Unsupported Stance- Eyes Open Independent, 1 minute Reaching Forward Standing Confidently, 10 inches Pick- Up Object From Floor Independent/Safe Look Behind Shoulder - Standing Shifts Weight Well Turning 360 Degrees Turns slowly, but safely Unsupported Stance, Alternating Feet on (I)- 8 Steps in 20 secs Stair Unsupported Tandem Stance Holds Tandem- 30 seconds Unilateral Leg Stance Lifts Leg/Holds 5-10 secs Total Score Mark Total Score (out of 56 points) 52 Mark Impairment Rating 1 to 19% Impaired (Score 45-55 ) PT-OP-E Functional Tests Start: 08/27/24 17:36 Freq: Status: Active Protocol: Document 08/27/24 17:00 DCW (Rec: 08/27/24 17:51 DCW [id number]) Functional Tests Dynamic Gait Index (DGI) Score 1924 PT-OP-M Strength Start: 08/27/24 17:36 Freq: Status: Active Protocol: Document 08/27/24 17:00 DCW (Rec: 08/28/24 09:44 DCW [id number]) Hip Strength Hip Manual Muscle Testing Right Flexion (L2) 4 Good Extension (S1) 4+ Good+ Abduction 4+ Good+ Adduction 5 Normal External Rotation 4+ Good+ Internal Rotation 4+ Good+ Left Flexion (L2) 4 Good Extension (S1) 4+ Good+ Abduction 4+ Good+ Adduction 5 Normal External Rotation 4+ Good+ Internal Rotation 4+ Good+ Knee Strength Knee Manual Muscle Testing Right Flexion (S2) 5 Normal Extension (L3) 4+ Good+ Left Flexion (S2) 5 Normal Extension (L3) 4+ Good+ PT-OP-Q Treatments Start: 08/27/24 17:36 Freq: Status: Active Protocol: Document 03/17/25 11:37 SP (Rec: 09/30/24 12:31 SP [id number]) Therapeutic Exercises Supine Exercises LTR Supine Exercise Name added to HEP /c HO Side bilateral Resistance AROM Reps/Minutes 10 reps each side alternating Comments cued slow pacing /c ed TA draw in- decreased back tension SKTC Supine Exercise Name added to HEP /c HO Side bilateral Equipment Used opp LE straight Reps/Minutes 60 sec Comments cued breath for back/ribcage mobility Manual Therapy Treatment Consent Patient gave verbal consent for manual Yes treatment Soft Tissue Mobilization LS Body Location B ES, paraspinals, glut med Mobilization Type Strumming,Sustained Pressure, Other Body Position SL Comments gentle STMs, sustained hold MWM cued breath and ribcage mobility decreased back tension Neuro Re-Education Treatment Balance Activities Floor Ladder Details fwd receiprocal stepping Comments cued more upright posture with TA and arm swing with opp LE, improved midline stability. Dynamic Gait Details Head Turns, Retro, grapevine Equipment open area several laps 30 ft each Comments cued posture and TA engagement over NISHI, slower pacing improved foot clearance and stability PT-OP-T Assessment and Plan Start: 08/27/24 17:36 Freq: Status: Active Protocol: Document 09/30/24 11:37 SP (Rec: 09/30/24 12:31 SP [id number]) Physical Therapy Assessment Goals Two Impairment DGI score (19/24) indicates increased risk of falls Long-Term Goal (LTG) Pt to improve DGI score by at least three points to 22/24 in order to demonstrate decreased falls risk. LTG Duration 10/25/24 One Impairment Pt does not have an appropriate home exercise program Short Term Goal (STG) PT to be independent and compliant with an appropriate HEP STG Duration 09/24/24 Assessment Summary Assessment Tx time today to decrease back discomfort, improved post manual and instruction on LS and hip stretching mobility with breath. Cues for upright posture, TA draw in, slower pacing foot clearance and COG over NISHI during dynamic stepping. She improved stability and reports back loosened up by end tx, not needing UE support. Provided HOs for stretching learned today for carryover home. Education for sitting down at [facility] to perform tasks and give her back recovery. Physical Therapy Plan Frequency and Duration Frequency of Treatment 2x/Week Plan of Care Start Date 08/27/24 Plan of Care End Date 10/25/24 Therapeutic Interventions Therapeutic Interventions Balance Training,Coordination Training,Home Exercise Program ,Manual Therapy,Neuromuscular Re-education,Patient/Caregiver Education,Self-Care/Home Management,Soft Tissue Mobilization,Therapeutic Activities,Therapeutic Exercises Next Visit Focus/Plan Next Note Type Treatment Note Next Visit Plan Recheck stretching added last tx. POC: Balance training, LE strengthening
--- NOTE | 2024-10-02 12:15 | PT.OTN ---
Current Diagnoses Hydrocephalus, unspecified (10/02/24) Unsteadiness on feet (10/02/24) Repeated falls (10/02/24) History of falling (10/02/24) Physical Therapy Treatment Note PT-OP-A Visit Information Start: 08/27/24 17:36 Freq: Status: Active Protocol: Document 10/02/24 11:30 DCW (Rec: 10/02/24 12:14 DCW [id number]) Out-Patient Physical Therapy Visit Information Visit Information Visit Type Treatment Note Visit Start Time 11:30 Visit Stop Time 12:15 Visit Number 8 Number of IRON CUTTER Visits 0 Evaluation Information Evaluation Date 08/27/24 PT-OP-B Current Condition Start: 08/27/24 17:36 Freq: Status: Active Protocol: Document 08/27/24 17:00 DCW (Rec: 08/27/24 17:51 DCW [id number]) Current Condition History of Current Condition Onset Date 07/17/24 Current Complaints LOB, falls History of Current Condition Pt is a 78 year old female who notes recent falls. Most significant fall occurred , which pt is still unclear what happened, but ended up falling down some stairs, hit head with LOC. Was eventually found to have suffered a SAH. Was initially discharges , returned to ED 07/25/24 with headaches and nausea. Returned again on 07/26 following an overnight fall and worsening cognition. Was then transferred to [facility] , admitted from 07/27/24-. Underwent lumbar drain placement on 07/29, drain was clamped 08/01, removed 08/02. Pt has since recovered fairly well, not experiencing any lingering effects from head injury. Admits she is still somewhat weak due to being in and out of hospitals for a month. Also just unclear as to why she has had so many recent falls, although later admits she tends to peraza, not pay attention, and make poor decisions. Treatment Goals Patient/Caregiver Goals Decrease risk of falls PT-OP-C Subjective Start: 08/27/24 17:36 Freq: Status: Active Protocol: Document 10/02/24 11:30 DCW (Rec: 10/02/24 12:14 DCW [id number]) OP-PT Subjective Patient Comments Patient Comments Whenever I stand for an extended period of time, my lower back just kills me. PT-OP-D Balance Start: 08/27/24 17:36 Freq: Status: Active Protocol: Document 08/27/24 17:00 DCW (Rec: 08/27/24 17:51 DCW [id number]) Mark Balance Assessment Evaluation Sitting to Standing Ability Independent w/out Hands Unsupported Stance Safely- 2 minutes Sitting Unsupported, Feet on Floor Safely- 2 minutes Standing to Sitting Ability Safely, Minimal Hand Use Transfer Ability Safely, Minimal Hand Use Unsupported Stance- Eyes Closed Safely, 10 seconds Unsupported Stance- Eyes Open Independent, 1 minute Reaching Forward Standing Confidently, 10 inches Pick- Up Object From Floor Independent/Safe Look Behind Shoulder - Standing Shifts Weight Well Turning 360 Degrees Turns slowly, but safely Unsupported Stance, Alternating Feet on (I)- 8 Steps in 20 secs Stair Unsupported Tandem Stance Holds Tandem- 30 seconds Unilateral Leg Stance Lifts Leg/Holds 5-10 secs Total Score Mark Total Score (out of 56 points) 52 Mark Impairment Rating 1 to 19% Impaired (Score 45-55 ) PT-OP-E Functional Tests Start: 08/27/24 17:36 Freq: Status: Active Protocol: Document 08/27/24 17:00 DCW (Rec: 08/27/24 17:51 DCW [id number]) Functional Tests Dynamic Gait Index (DGI) Score PT-OP-M Strength Start: 08/27/24 17:36 Freq: Status: Active Protocol: Document 08/27/24 17:00 DCW (Rec: 08/28/24 09:44 DCW [id number]) Hip Strength Hip Manual Muscle Testing Right Flexion (L2) 4 Good Extension (S1) 4+ Good+ Abduction 4+ Good+ Adduction 5 Normal External Rotation 4+ Good+ Internal Rotation 4+ Good+ Left Flexion (L2) 4 Good Extension (S1) 4+ Good+ Abduction 4+ Good+ Adduction 5 Normal External Rotation 4+ Good+ Internal Rotation 4+ Good+ Knee Strength Knee Manual Muscle Testing Right Flexion (S2) 5 Normal Extension (L3) 4+ Good+ Left Flexion (S2) 5 Normal Extension (L3) 4+ Good+ PT-OP-Q Treatments Start: 08/27/24 17:36 Freq: Status: Active Protocol: Document 10/02/24 11:30 DCW (Rec: 03/19/25 12:14 DCW [id number]) Gym Equipment Shuttle Balance red clips Details WBOS, Staggered Therapeutic Ball Pelvic tilts Exercise Details Pelvic tilts/circles Ball Size/Color Green - 55 cm Body Position Sitting Therapeutic Exercises Supine Exercises Marching Supine Exercise Name PPT /c TrA - Marching PPT Supine Exercise Name PPT /c TrA Standing Exercises Pallof Press Standing Exercise Name Pallof Press Side bilateral Resistance Blue PT-OP-T Assessment and Plan Start: 08/27/24 17:36 Freq: Status: Active Protocol: Document 10/02/24 11:30 DCW (Rec: 10/02/24 12:14 DCW [id number]) Physical Therapy Assessment Impairments Impairments Balance,Functional Activities, Functional Mobility,Strength Goals Two Impairment DGI score () indicates increased risk of falls Director Of Consumer Affairs Goal (LTG) Pt to improve DGI score by at least three points to 24 in order to demonstrate decreased falls risk. LTG Duration 10/25/24 One Impairment Pt does not have an appropriate home exercise program Short Term Goal (STG) PT to be independent and compliant with an appropriate HEP STG Duration 09/24/24 Assessment Summary Assessment Spent time today working on TrA, in oder to focus on stability and functional mobility. Pt struggles with core contraction, requires multiple cues, instructed to practice at home. Physical Therapy Plan Frequency and Duration Frequency of Treatment 2x/Week Plan of Care Start Date 08/27/24 Plan of Care End Date 10/25/24 Therapeutic Interventions Therapeutic Interventions Balance Training,Coordination Training,Home Exercise Program ,Manual Therapy,Neuromuscular Re-education,Patient/Caregiver Education,Self-Care/Home Management,Soft Tissue Mobilization,Therapeutic Activities,Therapeutic Exercises Next Visit Focus/Plan Next Note Type Treatment Note Next Visit Plan Recheck stretching added last tx. POC: Balance training, LE strengthening
--- NOTE | 2024-10-07 12:13 | PT.OTN ---
Current Diagnoses Hydrocephalus, unspecified (10/07/24) Unsteadiness on feet (10/07/24) Repeated falls (10/07/24) History of falling (10/07/24) Physical Therapy Treatment Note PT-OP-A Visit Information Start: 08/27/24 17:36 Freq: Status: Active Protocol: Document 10/07/24 11:33 SP (Rec: 10/07/24 12:29 SP [id number]) Out-Patient Physical Therapy Visit Information Visit Information Visit Type Treatment Note Visit Start Time 11:33 Visit Stop Time 12:13 Visit Number 9 Number of PLASTIC SURGERY ASSISTANT Visits 1 Evaluation Information Evaluation Date 08/27/24 PT-OP-B Current Condition Start: 08/27/24 17:36 Freq: Status: Active Protocol: Document 08/27/24 17:00 DCW (Rec: 08/27/24 17:51 DCW [id number]) Current Condition History of Current Condition Onset Date 07/17/24 Current Complaints LOB, falls History of Current Condition Pt is a 78 year old female who notes recent falls. Most significant fall occurred , which pt is still unclear what happened, but ended up falling down some stairs, hit head with LOC. Was eventually found to have suffered a SAH. Was initially discharges , returned to ED 07/25/24 with headaches and nausea. Returned again on 07/26 following an overnight fall and worsening cognition. Was then transferred to [facility] , admitted from 07/27/24-. Underwent lumbar drain placement on 07/29, drain was clamped 08/01, removed 08/02. Pt has since recovered fairly well, not experiencing any lingering effects from head injury. Admits she is still somewhat weak due to being in and out of hospitals for a month. Also just unclear as to why she has had so many recent falls, although later admits she tends to peraza, not pay attention, and make poor decisions. Treatment Goals Patient/Caregiver Goals Decrease risk of falls PT-OP-C Subjective Start: 08/27/24 17:36 Freq: Status: Active Protocol: Document 10/07/24 11:33 SP (Rec: 10/07/24 12:29 SP [id number]) OP-PT Subjective Patient Comments Patient Comments Pt reports she felt good after last tx. 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 Is gone by next day. PT-OP-D Balance Start: 08/27/24 17:36 Freq: Status: Active Protocol: Document 08/27/24 17:00 DCW (Rec: 08/27/24 17:51 DCW [id number]) Mark Balance Assessment Evaluation Sitting to Standing Ability Independent w/out Hands Unsupported Stance Safely- 2 minutes Sitting Unsupported, Feet on Floor Safely- 2 minutes Standing to Sitting Ability Safely, Minimal Hand Use Transfer Ability Safely, Minimal Hand Use Unsupported Stance- Eyes Closed Safely, 10 seconds Unsupported Stance- Eyes Open Independent, 1 minute Reaching Forward Standing Confidently, 10 inches Pick- Up Object From Floor Independent/Safe Look Behind Shoulder - Standing Shifts Weight Well Turning 360 Degrees Turns slowly, but safely Unsupported Stance, Alternating Feet on (I)- 8 Steps in 20 secs Stair Unsupported Tandem Stance Holds Tandem- 30 seconds Unilateral Leg Stance Lifts Leg/Holds 5-10 secs Total Score Mark Total Score (out of 56 points) 52 Mark Impairment Rating 1 to 19% Impaired (Score 45-55 ) PT-OP-E Functional Tests Start: 08/27/24 17:36 Freq: Status: Active Protocol: Document 08/27/24 17:00 DCW (Rec: 08/27/24 17:51 DCW [id number]) Functional Tests Dynamic Gait Index (DGI) Score 24 PT-OP-M Strength Start: 08/27/24 17:36 Freq: Status: Active Protocol: Document 08/27/24 17:00 DCW (Rec: 08/28/24 09:44 DCW [id number]) Hip Strength Hip Manual Muscle Testing Right Flexion (L2) 4 Good Extension (S1) 4+ Good+ Abduction 4+ Good+ Adduction 5 Normal External Rotation 4+ Good+ Internal Rotation 4+ Good+ Left Flexion (L2) 4 Good Extension (S1) 4+ Good+ Abduction 4+ Good+ Adduction 5 Normal External Rotation 4+ Good+ Internal Rotation 4+ Good+ Knee Strength Knee Manual Muscle Testing Right Flexion (S2) 5 Normal Extension (L3) 4+ Good+ Left Flexion (S2) 5 Normal Extension (L3) 4+ Good+ PT-OP-Q Treatments Start: 08/27/24 17:36 Freq: Status: Active Protocol: Document 10/07/24 11:33 SP (Rec: 10/07/24 12:29 SP [id number]) Gym Equipment Therapeutic Ball Pelvic tilts Exercise Details Pelvic tilts/circles Ball Size/Color Green - 65 cm then on bench for carryover at [facility] (for LB recovery) Body Position Sitting Comments Mod/Max cues for pubic bone landmark tilt down/ up then lateral tilting then CW, CCW. Therapeutic Exercises Supine Exercises piriformis stretch Supine Exercise Name added to HEP /c HO Side bilateral Equipment Used BUE grasp knee to opp shld Reps/Minutes 30 sec Comments cued breath Marching Supine Exercise Name PPT /c TrA - Marching Reps/Minutes 20 reps alternating Comments LS tactil cue: PPT with TA engagement, soft foot slow march landing, better LTR Supine Exercise Name reviewed Side bilateral Resistance AROM Reps/Minutes 10 reps each side alternating Comments cued slow pacing /c ed TA draw in- decreased back tension, can hold stretch SKTC Supine Exercise Name reviewed Side bilateral Equipment Used opp LE straight Reps/Minutes 60 sec Comments cued breath for back/ribcage mobility Standing Exercises Pallof Press Standing Exercise Name Pallof Press Side bilateral Resistance Blue TB (dark blue) Reps/Minutes x10 each side Comments cued WBOS, PPT with soft knees , press out from navel Neuro Re-Education Treatment Balance Activities Floor Ladder Details fwd receiprocal, lateral step to stepping Reps/Duration 9 ladder with hurdles 6- 3 laps each direction Comments cued more upright posture with TA and arm swing with opp LE, improved midline stability, slower pacing, feet //. Dynamic Gait Details Head Turns fwd (carrying cup water), Retro, grapevine Equipment open area several laps 30 ft each Comments cued posture and TA engagement over NISHI, slower pacing improved foot clearance and stability MEtronome: fwd 93>101, bwd 82 bpm, grapevine 76 to R but challenge to keep pace especially step behind. Self-Care/Home Management Treatment Education Patient Education Body Mechanics,Joint Protection,Pain Management, Safety Other Education Verbal education try seated rest on high stool for LB relief break from standing volunteering at [facility] or sit down perform pelvic tilts/ circles for flexibility recovery. PT-OP-T Assessment and Plan Start: 08/27/24 17:36 Freq: Status: Active Protocol: Document 10/07/24 11:33 SP (Rec: 10/07/24 12:29 SP [id number]) Physical Therapy Assessment Goals Two Impairment DGI score (1924) indicates increased risk of falls Business Writer Goal (LTG) Pt to improve DGI score by at least three points to 22/24 in order to demonstrate decreased falls risk. LTG Duration 10/25/24 One Impairment Pt does not have an appropriate home exercise program Short Term Goal (STG) PT to be independent and compliant with an appropriate HEP STG Duration 09/24/24 Assessment Summary Assessment Pt continues to experience back pain stationary standing volunteering at [facility], education sit down recovery pelvic tilts vs perform task sitting. SHe improving with balance recovery with corrections and able progress increased mari during ladder with added hurdles and dynamic walking carrying cup water today. CUes increase NISHI allowed decrease vier to side during head turns. Physical Therapy Plan Frequency and Duration Frequency of Treatment 2x/Week Plan of Care Start Date 08/27/24 Plan of Care End Date 10/25/24 Therapeutic Interventions Therapeutic Interventions Balance Training,Coordination Training,Home Exercise Program ,Manual Therapy,Neuromuscular Re-education,Patient/Caregiver Education,Self-Care/Home Management,Soft Tissue Mobilization,Therapeutic Activities,Therapeutic Exercises Next Visit Focus/Plan Next Note Type Treatment Note Next Visit Plan Recheck stretching, incorporating rests at [facility], Next add LE strengthening. Self STMs ball wall. POC: Balance training, LE strengthening
--- NOTE | 2024-10-09 12:04 | PT.OTN ---
Current Diagnoses Hydrocephalus, unspecified (10/09/24) Unsteadiness on feet (10/09/24) Repeated falls (10/09/24) History of falling (10/09/24) Physical Therapy Treatment Note PT-OP-A Visit Information Start: 08/27/24 17:36 Freq: Status: Active Protocol: Document 10/09/24 11:30 DCW (Rec: 10/09/24 12:04 DCW [id number]) Out-Patient Physical Therapy Visit Information Visit Information Visit Type Discharge Summary Visit Start Time 11:30 Visit Stop Time 11:55 Visit Number 10 Number of CALL BOX WIRER Visits 0 Evaluation Information Evaluation Date 08/27/24 PT-OP-B Current Condition Start: 08/27/24 17:36 Freq: Status: Active Protocol: Document 08/27/24 17:00 DCW (Rec: 08/27/24 17:51 DCW [id number]) Current Condition History of Current Condition Onset Date 07/17/24 Current Complaints LOB, falls History of Current Condition Pt is a 78 year old female who notes recent falls. Most significant fall occurred , which pt is still unclear what happened, but ended up falling down some stairs, hit head with LOC. Was eventually found to have suffered a SAH. Was initially discharged , returned to ED 07/25/24 with headaches and nausea. Returned again on 07/26 following an overnight fall and worsening cognition. Was then transferred to [facility] , admitted from 07/27/24-. Underwent lumbar drain placement on 07/29, drain was clamped 08/01, removed 08/02. Pt has since recovered fairly well, not experiencing any lingering effects from head injury. Admits she is still somewhat weak due to being in and out of hospitals for a month. Also just unclear as to why she has had so many recent falls, although later admits she tends to peraza, not pay attention, and make poor decisions. Treatment Goals Patient/Caregiver Goals Decrease risk of falls PT-OP-C Subjective Start: 08/27/24 17:36 Freq: Status: Active Protocol: Document 10/09/24 11:30 DCW (Rec: 10/09/24 12:04 DCW [id number]) OP-PT Subjective Patient Comments Patient Comments Pt feels like she has largely return to prior level of function since her fall in July PT-OP-D Balance Start: 08/27/24 17:36 Freq: Status: Active Protocol: Document 08/27/24 17:00 DCW (Rec: 08/27/24 17:51 DCW [id number]) Mark Balance Assessment Evaluation Sitting to Standing Ability Independent w/out Hands Unsupported Stance Safely- 2 minutes Sitting Unsupported, Feet on Floor Safely- 2 minutes Standing to Sitting Ability Safely, Minimal Hand Use Transfer Ability Safely, Minimal Hand Use Unsupported Stance- Eyes Closed Safely, 10 seconds Unsupported Stance- Eyes Open Independent, 1 minute Reaching Forward Standing Confidently, 10 inches Pick- Up Object From Floor Independent/Safe Look Behind Shoulder - Standing Shifts Weight Well Turning 360 Degrees Turns slowly, but safely Unsupported Stance, Alternating Feet on (I)- 8 Steps in 20 secs Stair Unsupported Tandem Stance Holds Tandem- 30 seconds Unilateral Leg Stance Lifts Leg/Holds 5-10 secs Total Score Mark Total Score (out of 56 points) 52 Mark Impairment Rating 1 to 19% Impaired (Score 45-55 ) PT-OP-E Functional Tests Start: 08/27/24 17:36 Freq: Status: Active Protocol: Document 10/09/24 11:30 DCW (Rec: 10/09/24 11:41 DCW [id number]) Functional Tests Dynamic Gait Index (DGI) Score 22/24 PT-OP-M Strength Start: 08/27/24 17:36 Freq: Status: Active Protocol: Document 10/09/24 11:30 DCW (Rec: 10/09/24 11:41 DCW [id number]) Hip Strength Hip Manual Muscle Testing Right Flexion (L2) 4+ Good+ Abduction 5 Normal Adduction 5 Normal External Rotation 4+ Good+ Internal Rotation 4+ Good+ Left Flexion (L2) 4+ Good+ Abduction 4+ Good+ Adduction 5 Normal External Rotation 4+ Good+ Internal Rotation 4+ Good+ Knee Strength Knee Manual Muscle Testing Right Flexion (S2) 5 Normal Extension (L3) 5 Normal Left Flexion (S2) 5 Normal Extension (L3) 5 Normal PT-OP-Q Treatments Start: 08/27/24 17:36 Freq: Status: Active Protocol: Document 10/09/24 11:30 DCW (Rec: 10/09/24 12:04 DCW [id number]) Neuro Re-Education Treatment Other Activities Testing Details DGI PT-OP-T Assessment and Plan Start: 08/27/24 17:36 Freq: Status: Active Protocol: Document 10/09/24 11:30 DCW (Rec: 10/09/24 12:04 DCW [id number]) Physical Therapy Assessment Impairments Impairments Balance,Functional Activities, Functional Mobility,Strength Goals Two Impairment DGI score (19/24) indicates increased risk of 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 LTG Duration Met One Impairment Pt does not have an appropriate home exercise program Short Term Goal (STG) Pt to be independent and compliant with an appropriate HEP STG Duration Met Assessment Summary Assessment Pt demonstrates improvement with muscle strength and balance, per MMT and DGI testing today. Pt has met all goals, and feels confident with her HEP, although does admit she continues to have difficulty with tandem ambulation and ambulating with head turns. Therapist and patient feel good with overall improvement and current level of function, agreeable to discharge from skilled therapy at this time. Physical Therapy Plan Frequency and Duration Frequency of Treatment 2x/Week Plan of Care Start Date 08/27/24 Plan of Care End Date 10/25/24 Therapeutic Interventions Therapeutic Interventions Balance Training,Coordination Training,Home Exercise Program ,Manual Therapy,Neuromuscular Re-education,Patient/Caregiver Education,Self-Care/Home Management,Soft Tissue Mobilization,Therapeutic Activities,Therapeutic Exercises Next Visit Focus/Plan Next Note Type Treatment Note Next Visit Plan Recheck stretching, incorporating rests at [place], Next add LE strengthening. Self STMs ball wall. POC: Balance training, LE strengthening
== END 2024-10-17 09:00 | disposition home or self-care (01) ==
LOC: PHYS 11:30
PROVIDERS: Family Provider Family Medicine; PCP Family Medicine; Referring Provider Family Medicine; Visit Provider Family Medicine
DX: G91.9 Hydrocephalus, unspecified (principal); R29.6 Repeated falls; Z91.81 History of falling; R26.81 Unsteadiness on feet
CPT/HCPCS: 97110; 97112; 97140; 97163

== ENCOUNTER → 2024-10-29 13:49 | Outpatient (CLI) | payer MEDICARE, OTHER, SELFPAY | LOC: LAB 13:57 | PROVIDERS: Family Provider Family Medicine; PCP Family Medicine; Visit Provider Obstetrics & Gynecology | DX: R39.15 Urgency of urination (principal) | CPT/HCPCS: 87086 ==

== ENCOUNTER → 2024-12-04 12:13 | Outpatient (CLI) | payer MEDICARE, OTHER, SELFPAY | PROVIDERS: Family Provider Family Medicine; PCP Family Medicine; Visit Provider Family Medicine | DX: R39.15 Urgency of urination (principal); R10.9 Unspecified abdominal pain | CPT/HCPCS: 87086 ==

== ENCOUNTER → 2024-12-23 13:49 | Outpatient (CLI) | payer MEDICARE, OTHER, SELFPAY ==
--- NOTE | 2024-12-23 13:51 | DI.US.S_ITS ---
PROCEDURE: US RENAL COMPLETE INDICATIONS: L flank pain TECHNIQUE: Real-time scanning was performed of the kidneys and bladder, with image documentation. COMPARISON: [facility], MR, MR ABDOMEN RENAL PROTOCOL, 12/29/2022, 16:55. [facility], US, US RENAL COMPLETE, 12/20/2022, 12:32. FINDINGS: Kidneys: Kidneys are normal in size. Right kidney measures 9.4 cm long; left kidney measures 8.7 cm long. Right renal cortical thickness is 1.1 cm; left renal cortical thickness is 1.2 cm. Renal cortical echotexture is normal. No hydronephrosis or nephrolithiasis. No suspicious solid mass lesions. Bladder: Pre-void bladder volume is 144 mL. Post-void residual is less than 1 mL. Pre-void images demonstrate no intraluminal masses or stones. On pre-void images, bilateral ureteral jets are noted with color Doppler interrogation. (Of note, ureteral jets may not be detectable in up to 25% of cases due to insufficient differences in specific gravity between ureteral and bladder urine). Miscellaneous: No free pelvic fluid. At the area of patient concern involving the medial left lower back, there is a small ill-defined hypoechoic, nonvascular collection within the intramuscular region measuring 2.1 x 0.9 x 0.4 cm. IMPRESSION: Normal sonographic appearance of the bilateral kidneys. No evidence for hydronephrosis. Unremarkable appearance of the urinary bladder. There is a small, ill-defined hypoechoic, nonvascular collection within the intermuscular region of the left lower back measuring 2.1 x 0.9 x 0.4 cm and correlates with area of patient concern. This may represent a small fluid collection versus focal soft tissue edema. Recommend clinical follow-up. Dictated by: Danny Daniels M.D. on 12/23/2024 at 22:58 Approved by: Danny Daniels M.D. on 12/23/2024 at 23:10
== END ==
PROVIDERS: Family Provider Family Medicine; PCP Family Medicine; Referring Provider Family Medicine; Visit Provider Family Medicine
DX: R10.9 Unspecified abdominal pain (principal)
CPT/HCPCS: 76770